=== PATIENT | male | born 1985 | race Caucasian/White ===

== ENCOUNTER → 2017-05-28 20:38 | Emergency (ER) | payer OTHER ==
[2017-05-28 21:08] VITALS: BP 159/95
--- NOTE | 2017-05-29 12:56 | ED ---
Substance Abuse/Use - HPI Summary HPI Summary: Patient presents by police after being found jumping up and down in front of the [employer] parking lot. They believe he may be on drugs. He admits to heroin use daily and last use this morning. He denies any pain, WD symptoms, LUCAS , N/V/C/D. Denies LUCAS. He states he would like to go home and denies fevers, sweats or chills. He denies any SI/HI. ETOH use weekly. Lives in a tent. Discussed case with security services manager. Will DC back to home since the individual is not a threat to himself or others at this time. - History Of Current Complaint Chief Complaint: EDAltMentalStatus Stated Complaint: AMS Time Seen by Provider: 05/28/17 20:50 Hx Obtained From: Patient Ingestion History: Type/Name Of Drug - heroin Overdose Characteristics: IV Timing Of Abuse: Daily Severity Initially: Mild Severity Currently: Mild Aggravating Factor(s): Nothing Alleviating Factor(s): Nothing Associated Signs And Symptoms: Negative - Risk Factor(s) Completed Suicide Risk Factors: Negative - Allergies/Home Medications Allergies/Adverse Reactions: Allergies Allergy/AdvReac Type Severity Reaction Status Date / Time Lidocaine [From Lidoderm] Allergy Rash Verified 05/24/16 13:37 PMH/Surg Hx/FS Hx/Imm Hx Previously Healthy: Yes Cardiovascular History: Reports: Hx Hypertension Respiratory History: Reports: Hx Asthma Infectious Disease History: No Infectious Disease History: Denies: Traveled Outside the US in Last 30 Days - Family History Known Family History: Positive: Hypertension - Social History Occupation: Unemployed Lives: Alone Alcohol Use: Rare Hx Substance Use: Yes Substance Use Type: Reports: Heroin Substance Use Comment - Amount & Last Used: earlier today Hx Tobacco Use: Yes Smoking Status (MU): Heavy Every Day Tobacco Smoker Review of Systems Constitutional: Negative Eyes: Negative Cardiovascular: Negative Respiratory: Negative Genitourinary: Negative Positive: no symptoms reported, see HPI Musculoskeletal: Negative Positive: Other - track mo on bilateral arms Neurological: Negative All Other Systems Reviewed And Are Negative: Yes Physical Exam Triage Information Reviewed: Yes Vital Signs On Initial Exam: Initial Vitals BP 159/95 05/28/17 20:47 Vital Signs Reviewed: Yes Appearance: Positive: Well-Appearing, Well-Nourished Skin: Positive: Warm, Skin Color Reflects Adequate Perfusion Head/Face: Positive: Normal Head/Face Inspection Eyes: Positive: EOMI, SIMI Neck: Positive: Supple, No Lymphadenopathy Respiratory/Lung Sounds: Positive: Clear to Auscultation, Breath Sounds Present Cardiovascular: Positive: Normal, RRR, Pulses are Symmetrical in both Upper and Lower Extremities Musculoskeletal: Positive: Normal, Strength/ROM Intact Neurological: Positive: Normal, Sensory/Motor Intact, Alert, Oriented to Person Place, Time Psychiatric: Positive: Anxious - patient is anxious about hospitals and wants to be DC'd home - [place] Coma Scale Coma Scale Total: 15 Diagnostics - Vital Signs Vital Signs Temp Pulse Resp BP Pulse Ox 05/28/17 21:20 98.7 F 05/28/17 21:06 98.6 F 104 18 159/95 99 05/28/17 21:00 98 135/119 99 05/28/17 20:49 105 99 05/28/17 20:47 159/95 - Laboratory Lab Statement: Any lab studies that have been ordered have been reviewed, and results considered in the medical decision making process. Course/Dx - Course Course Of Treatment: Discussed case with security services manager. Will DC back to home since the individual is not a threat to himself or others at this time. No labs were obtained. Patient is stable and at his baseline. - Diagnoses Differential Diagnosis/HQI/PQRI: Positive: Other - heroin use, other drug use Provider Diagnoses: Heroin use Discharge - Discharge Plan Condition: Stable Disposition: HOME Referrals: Lamonte Mancini MD [Primary Care Provider] - Additional Instructions: Do not do drugs. If you develop any worsening symptoms, return to the ED
== END | disposition home or self-care (01) ==
LOC: ED 20:38
DX: F11.90 Opioid use, unspecified, uncomplicated (principal)
CPT/HCPCS: 99282

== ENCOUNTER 2017-05-29 00:40 | Emergency (ER) | payer OTHER ==
[2017-05-29 05:48] LABS: Hematocrit 33 % (42-52); Hemoglobin 11.4 g/dl (14.0-18.0); Mean Corpuscular HGB Conc 35 g/dl (31-36); Mean Corpuscular Hemoglobin 33 pg (27-31); Mean Corpuscular Volume 95 fL (80-94); Mean Platelet Volume 7 um3 (7.4-10.4); Red Blood Count 3.48 10^6/ul (4.0-5.4); Red Cell Distribution Width 13 % (10.5-15); White Blood Count 6.9 10^3/ul (3.5-10.8)
[2017-05-29 06:03] LABS: Urine Bacteria Absent (Absent); Urine Bilirubin Negative (Negative); Urine Glucose Negative (Negative); Urine Nitrite Negative (Negative)
[2017-05-29 06:10] LABS: ALT 28 U/L (7-52); AST 35 U/L (13-39); Albumin 3.6 g/dL (3.2-5.2); Alkaline Phosphatase 42 U/L (34-104); Anion Gap 5 mmol/L (2-11); BUN/Creatinine Ratio 16.3 (8-20); Blood Urea Nitrogen 14 mg/dL (6-24); CO2 Carbon Dioxide 27 mmol/L (22-32); Calcium 8.5 mg/dL (8.6-10.3); Chloride 106 mmol/L (101-111); EGFR African American 132.5 (>60); EGFR Non-African American 103.1 (>60); Globulin 2.6 g/dL (2-4); Glucose 93 mg/dL (70-100); Potassium 3.4 mmol/L (3.5-5.0); Sodium 138 mmol/L (133-145); Total Protein 6.2 g/dL (6.4-8.9)
[2017-05-29 06:13] LABS: Acetaminophen < 15 mcg/mL; Alcohol < 10 mg/dL (<10); Salicylate < 2.50 mg/dL (<30)
[2017-05-29 06:21] LABS: Benzodiazepine Urine Screen None Detected (None Detect)
[2017-05-29 06:34] LABS: TSH (Thyroid Stimulating Horm) 2.08 mcIU/mL (0.34-5.60)
--- NOTE | 2017-05-29 07:33 | ED ---
Reyna Esquivel Abhishek, scribed for Milo Giron MD on 05/29/17 at 0622 . Substance Abuse/Use - HPI Summary HPI Summary: Pt is a 32 y/o male BIBA who presents to ED with methamphetamine abuse. Can not obtain HPI because pt was unconscious and unable to respond secondary to methamphetamine abuse. LEVEL 5 CAVEAT - History Of Current Complaint Chief Complaint: EDMentalHealth Stated Complaint: 941 Time Seen by Provider: 05/29/17 01:03 Hx Obtained From: EMS, Medical Records Hx From Patient Unobtainable Due To: Altered Mental Status - methamphetamine abuse Aggravating Factor(s): Nothing Alleviating Factor(s): Nothing - Allergies/Home Medications Allergies/Adverse Reactions: Allergies Allergy/AdvReac Type Severity Reaction Status Date / Time Lidocaine [From Lidoderm] Allergy Rash Verified 05/24/16 13:37 PMH/Surg Hx/FS Hx/Imm Hx Cardiovascular History: Reports: Hx Hypertension Respiratory History: Reports: Hx Asthma Infectious Disease History: No Infectious Disease History: Denies: Traveled Outside the [place] in Last 30 Days - Family History Known Family History: Positive: Hypertension - Social History Alcohol Use: Rare Substance Use Type: Reports: Heroin Substance Use Comment - Amount & Last Used: earlier today Hx Tobacco Use: Yes Smoking Status (MU): Never Smoked Tobacco Review of Systems - ROS Summary Review of Systems Summary: LEVEL 5 CAVEAT secondary to methamphetamine Positive: Other - Methamphetamine abuse All Other Systems Reviewed And Are Negative: No Physical Exam - Summary Physical Exam Summary: General: well-appearing, no pain distress Skin: warm, color reflects adequate perfusion, dry Head: normal Eyes: EOMI, SIMI Neck: supple, nontender Respiratory: CTA, breath sounds present Cardiovascular: RRR Musculoskeletal: moves all extremities in a grossly normal manner Neurological: alert Psychological: alert Triage Information Reviewed: Yes Vital Signs On Initial Exam: Initial Vitals Temp Pulse Resp BP Pulse Ox 99.2 F 104 20 116/73 100 05/29/17 01:14 05/29/17 01:14 05/29/17 01:14 05/29/17 01:14 05/29/17 01:14 Vital Signs Reviewed: Yes Completion Of Physical Exam Limited Due To: Level 5 - LEVEL 5 CAVEAT due to methamphetamine abuse - [place] Coma Scale Coma Scale Total: 15 Diagnostics - Vital Signs Vital Signs Temp Pulse Resp BP Pulse Ox 05/29/17 05:30 86 127/81 90 05/29/17 05:00 90 90 05/29/17 04:30 94 122/84 92 05/29/17 04:00 92 125/86 92 05/29/17 03:48 85 92 05/29/17 03:46 131/79 05/29/17 01:14 99.2 F 104 20 116/73 100 - Laboratory Lab Results: Lab Results 05/29/17 05/29/17 05/29/17 Range/Units 00:51 05:25 05:25 WBC 6.9 (3.5-10.8) 10^3/ul RBC 3.48 L (4.0-5.4) 10^6/ul Hgb 11.4 L (14.0-18.0) g/dl Hct 33 L (42-52) % MCV 95 H (80-94) fL MCH 33 H (27-31) pg MCHC 35 (31-36) g/dl RDW 13 (10.5-15) % Plt Count 228 (150-450) 10^3/ul MPV 7 L (7.4-10.4) um3 Neut % (Auto) 57.0 (38-83) % Lymph % (Auto) 28.8 (25-47) % [place] % (Auto) 10.2 H (1-9) % Eos % (Auto) 3.5 (0-6) % Baso % (Auto) 0.5 (0-2) % Absolute Neuts (auto) 3.9 (1.5-7.7) 10^3/ul Absolute Lymphs (auto) 2.0 (1.0-4.8) 10^3/ul Absolute Monos (auto) 0.7 (0-0.8) 10^3/ul Absolute Eos (auto) 0.2 (0-0.6) 10^3/ul Absolute Basos (auto) 0 (0-0.2) 10^3/ul Absolute Nucleated RBC 0.01 10^3/ul Nucleated RBC % 0.1 Sodium 138 (133-145) mmol/L Potassium 3.4 L (3.5-5.0) mmol/L Chloride 106 (101-111) mmol/L Carbon Dioxide 27 (22-32) mmol/L Anion Gap 5 (2-11) mmol/L BUN 14 (6-24) mg/dL Creatinine 0.86 (0.67-1.17) mg/dL Est GFR ( Amer) 132.5 (>60) Est GFR (Non-Af Amer) 103.1 (>60) BUN/Creatinine Ratio 16.3 (8-20) Glucose 93 (70-100) mg/dL Calcium 8.5 L (8.6-10.3) mg/dL Total Bilirubin 0.30 (0.2-1.0) mg/dL AST 35 (13-39) U/L ALT 28 (7-52) U/L Alkaline Phosphatase 42 (34-104) U/L Total Protein 6.2 L (6.4-8.9) g/dL Albumin 3.6 (3.2-5.2) g/dL Globulin 2.6 (2-4) g/dL Albumin/Globulin Ratio 1.4 (1-3) TSH Pending Urine Color Yellow Urine Appearance Cloudy Urine pH 5.0 (5-9) Ur Specific [place] 1.025 (1.010-1.030) Urine Protein 1+(30 mg/dl) H (Negative) Urine Ketones Negative (Negative) Urine Blood Negative (Negative) Urine Nitrate Negative (Negative) Urine Bilirubin Negative (Negative) Urine Urobilinogen Negative (Negative) Ur Leukocyte Esterase Trace H (Negative) Urine WBC (Auto) 3+(>20/hpf) H (Absent) Urine RBC (Auto) 2+(6-10/hpf) H (Absent) Ur Squamous Epith Cells Present H (Absent) Calcium Oxalate Crystal Present H (Absent) Urine Bacteria Absent (Absent) Urine Glucose Negative (Negative) Salicylates < 2.50 (<30) mg/dL Acetaminophen < 15 mcg/mL Serum Alcohol < 10 (<10) mg/dL Result Diagrams: 05/29/17 05:25 05/29/17 05:25 Lab Statement: Any lab studies that have been ordered have been reviewed, and results considered in the medical decision making process. Course/Dx - Course Course Of Treatment: Allergy noted and medication reviewed. MHE PENDING AT SHIFT CHANGE. NO CRITICAL CARE TIME. - Diagnoses Provider Diagnoses: Mental health problem Discharge - Discharge Plan Condition: Stable Disposition: OTHER Discharge Disposition Comment: . Referrals: Lamonte Mancini MD [Primary Care Provider] - The documentation as recorded by the Reyna toth Abhishek accurately reflects the service I personally performed and the decisions made by me, Milo Giron MD.
[2017-05-29 08:04] VITALS: BP 107/78
== END 2017-05-29 11:30 ==
LOC: ED 00:40
DX: R41.82 Altered mental status, unspecified (principal); Z00.8 Encounter for other general examination
CPT/HCPCS: 36415; 80053; 80307; 80320; 80329; 81003; 81015; 84443; 85025; 87086; 99284; G0480

== ENCOUNTER 2017-06-07 18:15 | Inpatient (IN) | payer OTHER ==
[2017-06-07] MEDS ORDERED: NS 0.9% 1000 ML* 2,300 ML IV ONE (18:23)
[2017-06-07 18:48] LABS: Hematocrit 38 % (42-52); Hemoglobin 12.9 g/dl (14.0-18.0); Mean Corpuscular HGB Conc 34 g/dl (31-36); Mean Corpuscular Hemoglobin 32 pg (27-31); Mean Corpuscular Volume 94 fL (80-94); Mean Platelet Volume 7 um3 (7.4-10.4); Red Blood Count 4.07 10^6/ul (4.0-5.4); Red Cell Distribution Width 14 % (10.5-15); White Blood Count 27.5 10^3/ul (3.5-10.8)
[2017-06-07] MEDS ORDERED: Bupivacaine 0.25% MDV* 50 ML VIAL ONE (18:48)
[2017-06-07 18:49] LABS: Add Diff/Slide Review? Slide Review Added; Comments Flag Yes
[2017-06-07 19:03] LABS: Albumin 3.7 g/dL (3.2-5.2); BUN/Creatinine Ratio 17.6 (8-20); Calcium 8.5 mg/dL (8.6-10.3); EGFR Non-African American 23.3 (>60); Globulin 3.1 g/dL (2-4); Potassium 4.7 mmol/L (3.5-5.0); Total Bilirubin 2.5 mg/dL (0.2-1.0); Total Protein 6.8 g/dL (6.4-8.9)
[2017-06-07 19:05] LABS: Troponin I 0.03 ng/mL (<0.04)
[2017-06-07 19:08] LABS: Eosinophils % 3 % (0-6); Immature Granulocytes 21 % (0-9); Neutrophil % 70 % (38-83); Reactive Lymph % 3 % (0-6)
[2017-06-07 19:09] LABS: RBC Morphology Normal (Normal)
[2017-06-07] MEDS ORDERED: Norepinephrine 16MCG/ML IVPRE* 4,000 MCG/250 ML BAG IV ONE (19:29)
--- NOTE | 2017-06-07 19:31 | RAD ---
INDICATION: Fever and facial swelling COMPARISON: Similar radiograph July 30, 2012 TECHNIQUE: Single AP portable view of the chest was obtained. FINDINGS: Image quality is compromised due to the relative inferiority of a portable chest x-ray. The heart and mediastinum exhibit normal size and contour. The lungs are grossly clear. There is no evidence of a large pleural effusion. Visualized bones are normal for the patient's age. IMPRESSION: No radiographic evidence for acute cardiopulmonary abnormality on this portable chest x-ray.
--- NOTE | 2017-06-07 19:36 | ED ---
Tyler Esquivel Rebecca, scribed for Radha Davies MD on 06/07/17 at 1834 . Complex/Multi-Sys Presentation - HPI Summary HPI Summary: Pt is a 32 y/o M BIBA who presents to ED c/o area of swelling on the forehead, generalized weakness and SOB. Pt states that the swelling "started out as a zit " and has been increasing in size since onset. Pt reports generalized weakness and mild SOB began yesterday. Sx aggravated and alleviated by nothing. Additionally c/o numbness down the LUE through the L hand for the last few days. EMS report he was hypotensive en route to [facility] [place] ED, with his diastolic BP in the 80s. Denies CP. PMHx asthma. PMHx IVDA, stating that he uses "uppers" and confirms use of "shake and bake" with the last use a few days ago. Reports injecting only into the LUE. - History Of Current Complaint Chief Complaint: EDGeneral Time Seen by Provider: 06/07/17 18:21 Hx Obtained From: Patient, EMS Onset/Duration: Lasting Days - Yesterday, Still Present Severity Currently: Moderate - 5/10 Aggravating Factor(s): Nothing Alleviating Factor(s): Nothing Associated Signs And Symptoms: Positive: Weakness - Generalized, SOB, Other - Numbness down the LLE and into the L hand; hyptotensive - Allergies/Home Medications Allergies/Adverse Reactions: Allergies Allergy/AdvReac Type Severity Reaction Status Date / Time Lidocaine [From Lidoderm] Allergy Rash Verified 05/24/16 13:37 PMH/Surg Hx/FS Hx/Imm Hx Cardiovascular History: Reports: Hx Hypertension Respiratory History: Reports: Hx Asthma Musculoskeletal History: Reports: Hx Back Problems - Chronic back pain Psychiatric History: Denies: Hx Eating Disorder Infectious Disease History: No Infectious Disease History: Denies: Traveled Outside the [place] in Last 30 Days - Family History Known Family History: Positive: Hypertension - Social History Alcohol Use: Rare Substance Use Type: Reports: Heroin Substance Use Comment - Amount & Last Used: earlier today Hx Tobacco Use: Yes Smoking Status (MU): Never Smoked Tobacco Review of Systems Positive: Other - Generalized weakness, hypotensive Negative: Chest Pain Positive: Shortness Of Breath Positive: Other - Area of swelling on the forehead Positive: Numbness - LUE numbness into the L hand All Other Systems Reviewed And Are Negative: Yes Physical Exam - Summary Physical Exam Summary: General: Well appearing, no pain distress Skin: Warm, Skin Color Reflects Adequate Perfusion, Dry, About a 2 cm area of fluctuance and induration over his forehead Eyes: EOMI, SIMI ENT: Pharynx normal, TMs normal Neck: Supple, nontender Respiratory: CTA, breath sounds present, perfusing well, no rhonchi, no wheezes , no rales Cardiovascular: RRR, no murmur, no rub, no gallop, Abdomen: Soft, nontender, Non-distended, no guarding, no rebound Bowel: Present Musculoskeletal: LEYDI, No edema Neuro: Sensory/motor intact, A&Ox3, CN intact 2-12 Psych: Affect/mood appropriate Triage Information Reviewed: Yes Vital Signs On Initial Exam: Initial Vitals Temp Pulse Resp BP Pulse Ox 98.6 F 108 21 74/37 98 06/07/17 18:25 06/07/17 18:25 06/07/17 18:25 06/07/17 18:25 06/07/17 18:25 Vital Signs Reviewed: Yes Procedures - Central Line Central Line Lumen: triple Central Line Procedure: betadine prep, sterile drapes applied, sterile dressing applied Central Line Position: femoral (L) Anesthesia: Marcaine - 0.25% cc's of anesthesia: 4 Complications: none Central Line Post Position: sutured, good blood return Diagnostics - Vital Signs Vital Signs Temp Pulse Resp BP Pulse Ox 06/07/17 18:25 98.6 F 108 21 74/37 98 - Laboratory Lab Results: Lab Results 06/07/17 06/07/17 06/07/17 Range/Units 18:32 18:32 18:32 WBC 27.5 H (3.5-10.8) 10^3/ul RBC 4.07 (4.0-5.4) 10^6/ul Hgb 12.9 L (14.0-18.0) g/dl Hct 38 L (42-52) % MCV 94 (80-94) fL MCH 32 H (27-31) pg MCHC 34 (31-36) g/dl RDW 14 (10.5-15) % Plt Count 278 (150-450) 10^3/ul MPV 7 L (7.4-10.4) um3 Immature Gran % (Auto) 21 H (0-9) % Neut % (Auto) 95.4 H (38-83) % Lymph % (Auto) 1.4 L (25-47) % [place] % (Auto) 3.1 (1-9) % Eos % (Auto) 0 (0-6) % Baso % (Auto) 0.1 (0-2) % Absolute Neuts (auto) 26.3 H (1.5-7.7) 10^3/ul Absolute Lymphs (auto) 0.4 L (1.0-4.8) 10^3/ul Absolute Monos (auto) 0.8 (0-0.8) 10^3/ul Absolute Eos (auto) 0 (0-0.6) 10^3/ul Absolute Basos (auto) 0 (0-0.2) 10^3/ul Absolute Nucleated RBC 0 10^3/ul Neutrophils % 70 (38-83) % Band Neutrophils % 21 H (0-8) % Reactive Lymphs % 3 (0-6) % Monocytes % 3 (0-13) % Eosinophils % 3 (0-6) % Nucleated RBC % 0 Normal RBC Morphology Normal (Normal) INR (Anticoag Therapy) 1.17 H (0.89-1.11) APTT 29.1 (26.0-36.3) seconds Sodium 130 L (133-145) mmol/L Potassium 4.7 (3.5-5.0) mmol/L Chloride 95 L (101-111) mmol/L Carbon Dioxide 22 (22-32) mmol/L Anion Gap 13 H (2-11) mmol/L BUN 55 H (6-24) mg/dL Creatinine 3.12 H (0.67-1.17) mg/dL Est GFR ( Amer) 30.0 (>60) Est GFR (Non-Af Amer) 23.3 (>60) BUN/Creatinine Ratio 17.6 (8-20) Glucose 99 (70-100) mg/dL Lactic Acid (0.5-2.0) mmol/L Calcium 8.5 L (8.6-10.3) mg/dL Total Bilirubin 2.50 H (0.2-1.0) mg/dL AST 446 H (13-39) U/L ALT 352 H (7-52) U/L Alkaline Phosphatase 183 H (34-104) U/L Troponin I 0.03 (<0.04) ng/mL Total Protein 6.8 (6.4-8.9) g/dL Albumin 3.7 (3.2-5.2) g/dL Globulin 3.1 (2-4) g/dL Albumin/Globulin Ratio 1.2 (1-3) 10//17 Range/Units 18:32 WBC (3.5-10.8) 10^3/ul RBC (4.0-5.4) 10^6/ul Hgb (14.0-18.0) g/dl Hct (42-52) % MCV (80-94) fL MCH (27-31) pg MCHC (31-36) g/dl RDW (10.5-15) % Plt Count (150-450) 10^3/ul MPV (7.4-10.4) um3 Immature Gran % (Auto) (0-9) % Neut % (Auto) (38-83) % Lymph % (Auto) (25-47) % [place] % (Auto) (1-9) % Eos % (Auto) (0-6) % Baso % (Auto) (0-2) % Absolute Neuts (auto) (1.5-7.7) 10^3/ul Absolute Lymphs (auto) (1.0-4.8) 10^3/ul Absolute Monos (auto) (0-0.8) 10^3/ul Absolute Eos (auto) (0-0.6) 10^3/ul Absolute Basos (auto) (0-0.2) 10^3/ul Absolute Nucleated RBC 10^3/ul Neutrophils % (38-83) % Band Neutrophils % (0-8) % Reactive Lymphs % (0-6) % Monocytes % (0-13) % Eosinophils % (0-6) % Nucleated RBC % Normal RBC Morphology (Normal) INR (Anticoag Therapy) (0.89-1.11) APTT (26.0-36.3) seconds Sodium (133-145) mmol/L Potassium (3.5-5.0) mmol/L Chloride (101-111) mmol/L Carbon Dioxide (22-32) mmol/L Anion Gap (2-11) mmol/L BUN (6-24) mg/dL Creatinine (0.67-1.17) mg/dL Est GFR ( Amer) (>60) Est GFR (Non-Af Amer) (>60) BUN/Creatinine Ratio (8-20) Glucose (70-100) mg/dL Lactic Acid 2.2 H* (0.5-2.0) mmol/L Calcium (8.6-10.3) mg/dL Total Bilirubin (0.2-1.0) mg/dL AST (13-39) U/L ALT (7-52) U/L Alkaline Phosphatase (34-104) U/L Troponin I (<0.04) ng/mL Total Protein (6.4-8.9) g/dL Albumin (3.2-5.2) g/dL Globulin (2-4) g/dL Albumin/Globulin Ratio (1-3) Result Diagrams: 06/07/17 18:32 06/07/17 18:32 Lab Statement: Any lab studies that have been ordered have been reviewed, and results considered in the medical decision making process. - Radiology CXR Xray Interpretation: No Acute Changes - No radiographic evidence for acute cardiopulmonary abnormality on this portable chest x-ray. ED physician reviewed radiology report and agrees. Radiology Interpretation Completed By: Radiologist Complex Multi-Symp Course/Dx Course Of Treatment: 32 yo male with methamphetamine iv drug use who noted abscess on his forehead and several days of not feeling well. pressures in 70's on arrival. Pt immediately given 30 cc/kg of ivf with no rise in pressures ( although pt perfusing quite well) femoral line placed which pt tolerated well, levophed started. Pt also started on zosyn and vanco wbc above 30's lfts abnl. Case discussed with Dr. Chavez, who agreed with CT chest abd /pelvis and admission - Diagnoses Provider Diagnoses: Sepsis - Physician Notifications Discussed Care Of Patient With: Godwin Chavez Time Discussed With Above Provider: 19:20 Instructed by Provider To: Other - Accepts pt for admission - Critical Care Time Critical Care Time: 30-74 min - 30 minutes Discharge - Discharge Plan Condition: Critical Disposition: ADMITTED TO [facility] Referrals: Lamonte Mancini MD [Primary Care Provider] - The documentation as recorded by the Tyler toth Rebecca accurately reflects the service I personally performed and the decisions made by me, Radha Davies MD.
[2017-06-07] MEDS ORDERED: Ibuprofen TAB* 400 MG PO PRN (19:43)
[2017-06-07] MEDS ORDERED: Acetaminophen TAB* 325 MG PO PRN (19:46)
[2017-06-07] MEDS ORDERED: Vancomycin per Pharmacy* NOTE FOLLOW UP PRN (19:52)
[2017-06-07] MEDS ORDERED: Vancomycin(*) 1,000 MG VIAL IVPB SCH (20:00)
[2017-06-07] MEDS ORDERED: Norepinephrine 16MCG/ML IVPRE* 4,000 MCG/250 ML BAG IV SCH (20:00)
[2017-06-07] MEDS ORDERED: Vancomycin(*) 1,000 MG - ED ONCE IVPB ONE ×2 (20:00)
[2017-06-07] MEDS ORDERED: Vancomycin(*) 0 MG in NS 0.9% 250 ML* 250 ML IVPB SCH (20:00)
[2017-06-07] MEDS ORDERED: Ondansetron INJ* 2 MG/ML VIAL ONE (20:10)
[2017-06-07] MEDS: Ondansetron INJ* 2 MG/ML VIAL IV PRN (20:11)
[2017-06-07] MEDS ORDERED: Vancomycin(*) 1,250 MG in NS 0.9% 250 ML* 250 ML IVPB ONE (20:30)
[2017-06-07 20:55] LABS: Erythrocyte Sed Rate 33 mm/Hr (0-14)
[2017-06-07] MEDS: NS 0.9% 1000 ML* 1,000 ML IV SCH (21:00)
--- NOTE | 2017-06-07 21:33 | RAD ---
INDICATION: "General sepsis". Abnormal liver enzyme. COMPARISON: None. TECHNIQUE: Multidetector CT images of the chest, abdomen and pelvis were obtained from the lung apices to the ischial tuberosities without intravenous contrast or oral contrast. CHEST: The lungs are clear. There are no large pleural effusions. There is no mediastinal or hilar lymphadenopathy. The heart and major vascular structures are grossly normal in appearance. ABDOMEN \\T\\ PELVIS: The liver, spleen, pancreas and adrenal glands are grossly normal in appearance. The gallbladder is normal. The kidneys are normal in appearance without focal mass, calcification or signs of hydronephrosis. The small and large bowel are not distended. The appendix is not discretely visualized. There is no gross retroperitoneal or mesenteric lymphadenopathy. The pelvic viscera is normal in appearance. 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 There is calcified atherosclerosis of the bilateral common iliac arteries. A central venous catheter in the left common femoral vein is noted. There are no sinister bone lesions. IMPRESSION: No acute abnormalities on this highly limited noncontrast CT examination.
[2017-06-07 21:54] LABS: Urine Bacteria Absent (Absent); Urine Bilirubin Negative (Negative); Urine Glucose Negative (Negative); Urine Nitrite Negative (Negative); Urine Sperm Present (Absent)
[2017-06-07 22:23] LABS: Benzodiazepine Urine Screen None Detected (None Detect)
[2017-06-07] MEDS: oxyCODONE/Acetamin 5/325 MG* TAB PO PRN (22:46)
--- NOTE | 2017-06-08 01:09 | HP ---
CC: Dr. Mancini ADMISSION HISTORY AND PHYSICAL: DATE OF ADMISSION: 06/07/17 CHIEF COMPLAINT: Weakness. HISTORY OF PRESENT ILLNESS: Mr. Barreto is a 32-year-old man with history of IV drug abuse, who noted a lump on his upper forehead midline over the last 2 days. It seems to be causing mild pain and enlarging slowly. He denies any fever, but he has had chills. He came to the emergency department today because he was increasingly weak and lethargic. He has had some abdominal pain for the past few days which he cannot quantify or localize. The patient denies any cough or sore throat. He has been tolerating liquids today, but he is becoming nauseous with his liquids. He denies any vomiting, but he has had decreased appetite. The patient has a long history of intravenous drug use mainly with crystal meth. He uses this daily, but reports he uses clean needles. PAST MEDICAL HISTORY: Denies any medical history other than above. PAST SURGICAL HISTORY: None. MEDICATIONS: None. ALLERGIES: LIDOCAINE. FAMILY HISTORY: Notable for mother and father alive and well. His brother and sister both of polyglandular failure and [place]'s disease and he believes he does not have this gene. SOCIAL HISTORY: He is homeless and collects bottles and cans for money[place] He is single. He has no children. Not sexually active. Social history includes quarter pack a day of smoking. No alcohol use and IV drug abuse as above. Denies any opiate use. REVIEW OF SYSTEMS: The patient denies any fevers, but he has anorexia. The patient denies any chest pain or palpitations. The patient denies any diarrhea or constipation, but does report some abdominal pain and some nausea as above. The patient denies any hematuria, but does have some dysuria. The patient consents to HIV testing when offered in the emergency department. Remainder of 14-point review of systems is negative other than mentioned in the HPI. PHYSICAL EXAMINATION GENERAL: He appears ill, but he is alert and conversant. VITAL SIGNS: Temperature is 37.0, pulse 103 to 108, respirations 28 to 34, blood pressure is 74/37 up to 81/64 after 2 L of fluids intravenously, O2 sat is 100% on room air. HEENT: His head is normocephalic, atraumatic. The skin on his forehead is notable for a 3 cm raised erythematous dome-like lesion with a central 1 cm eschar, no purulent drainage. No stranding erythema. The extraocular muscles are intact. Pupils are equal, round, and reactive to light and accommodation. Oropharynx is with poor dentition. He has dry mouth, dry lips. NECK: No adenopathy. No JVD. No carotid bruits. LUNGS: Clear to auscultation bilaterally. HEART: Tachycardic, regular, no murmurs. ABDOMEN: Soft, nontender, positive bowel sounds. No hepatosplenomegaly. There is a catheter in the left groin femoral vein, which was clean, dry and intact. NEUROLOGIC: Cranial nerves II through XII are intact. Motor strength is 5/5 throughout. Deep tendon reflexes are symmetric. He is alert and oriented x3. LABORATORY DATA: Sodium 130, potassium 4.7, chloride 95, bicarb 22, BUN 55, creatinine 3.12, glucose 99, calcium 8.5, albumin 3.7, AST 446, ALT 352, bilirubin 2.5. White count 27.5, hemoglobin 12.9, hematocrit 38%, platelets 278 ,000. INR 1.17. PTT 29.1. Lactic acid 2.2. EKG shows sinus tachycardia with J-point elevation. No ischemic changes. Chest x-ray is negative for infiltrates or effusion. CT chest, abdomen and pelvis is pending. Urinalysis is pending. ASSESSMENT AND PLAN: A 32-year-old man with sepsis, source is unclear, but he does have an infection on the skin on the forehead which may be MRSA with subsequent bacteremia and/or endocarditis. Other possibilities would include urinary tract infection or liver abscess. The patient will be admitted to the intensive care unit. He has completed his 30 mL/per kg of fluid resuscitation and is continued at a high rate of infusion. Because he is still hypotensive, he is to be started on Levophed for pressor support. The case was discussed with Dr. Hines, at the ICU. The patient has acute kidney injury which is likely due to hypovolemia. The patient will have a ultrasound to rule out postrenal obstruction. We will treat him aggressively as above and recheck creatinine in the morning. The patient has acute hepatitis compared to previous tests and no previous serologies. He will be tested for hepatitis A, B and C and CMV. The liver abscess was also in the differential. Because of IV drug use, we are also checking HIV test. Code status was full. DVT prophylaxis will be with early ambulation once his pressure is better and he can have mechanical DVT prophylaxis until then. [id number]/CPS #: [id number] MTDD
[2017-06-08] MEDS: NS 0.9% 1000 ML* 1,000 ML IV SCH ×2 (02:53→05:47)
[2017-06-08] MEDS ORDERED: NS 0.9% 500 ML* 500 ML IV ONE (03:06)
[2017-06-08 04:50] LABS: Hematocrit 30 % (42-52); Hemoglobin 9.9 g/dl (14.0-18.0); Mean Corpuscular HGB Conc 34 g/dl (31-36); Mean Corpuscular Hemoglobin 32 pg (27-31); Mean Corpuscular Volume 94 fL (80-94); Mean Platelet Volume 7 um3 (7.4-10.4); Red Blood Count 3.14 10^6/ul (4.0-5.4); Red Cell Distribution Width 13 % (10.5-15); White Blood Count 25.2 10^3/ul (3.5-10.8)
[2017-06-08 04:53] LABS: Comments Flag Yes
[2017-06-08 05:05] LABS: Albumin 2.8 g/dL (3.2-5.2); BUN/Creatinine Ratio 22.4 (8-20); Calcium 7.1 mg/dL (8.6-10.3); EGFR African American 45.1 (>60); Globulin 2.5 g/dL (2-4); Potassium 3.9 mmol/L (3.5-5.0); Total Bilirubin 1.4 mg/dL (0.2-1.0); Total Protein 5.3 g/dL (6.4-8.9); Vancomycin Random 14.6 mcg/mL
[2017-06-08] MEDS: oxyCODONE/Acetamin 5/325 MG* TAB PO PRN ×3 (05:53→20:52)
[2017-06-08] MEDS ORDERED: Vancomycin Random Level* NOTE FOLLOW UP SCH (06:00)
[2017-06-08] MEDS: Vancomycin(*) 1,000 MG in NS 0.9% 250 ML* 250 ML IVPB SCH ×2 (08:40→20:34)
[2017-06-08] MEDS ORDERED: NS 0.9% 1000 ML* 2,000 ML IV ONE (10:31)
[2017-06-08] MEDS ORDERED: Norepinephrine 16MCG/ML IVPRE* 4,000 MCG/250 ML BAG IV SCH (10:32)
--- NOTE | 2017-06-08 11:01 | RAD ---
Indication: Acute renal insufficiency. Comparison: Noncontrast CT of one day prior. Technique: Renal ultrasound. Report: 11.7 x 6.6 x 6.2 cm RIGHT kidney. 14.4 x 5.7 x 8.2 cm LEFT kidney. Borderline echogenic bilateral renal cortex. No focal renal lesions, conspicuous stones, or hydronephrosis. Trace RIGHT perinephric fluid noted. IMPRESSION: Borderline echogenic bilateral renal cortex which may be seen with medical renal disease. Negative for obstructive uropathy.
--- NOTE | 2017-06-08 11:18 | PN ---
Progress Note - Progress Note Date of Service: 06/08/17 Note: CRITICAL CARE MEDICINE Date: 06/08/17 Time: 1000 SUBJECTIVE: Patient seen and examined. PHYSICAL EXAM: Vital Signs: Reviewed. afeb, Hr 80s SBP just above 80 and diastolics low. RR teens Neurologic: intact, nonfocal, other then chronic parasthesias of left arm; equal strength HEENT: small abcess with mild redness and bogginess with center eschar on mid forehead; no jaw nor temporal pain. pupils equal. Sclera anicteric. Trachea midline. neck supple Cardiovascular: S1 S2 no m Respiratory: clear Abdomen: Soft, nt. No r/g/r. Extremities: Warm. disheveled, grungy hands Access: left femoral cvc LABS: Reviewed. IMAGING: Reviewed. MEDICATIONS: Reviewed. ASSESSMENT: 32 M Septic shock on admission Source is still questionable, forehead abscess like a red banks, but follow up evolution - not requiring i&d at this juncture CT was poor qulaity, but benign. Acute renal failure - no obstructive uropathy; certainly pre-renal, and possible atn component as well. Acute ischemic vs infectious hepatitis Drug abuse PLAN: Neurologic: stable. prns Cardiovascular: perfusing. could likely still utilize vol as he may have been considerably behind over last few days. keep ivf today. no m appreciated but given bp dnamics and risk factors with sepsis, at least tte warranted. weaned off levo and perfusing well with sbp >80 and maintain off pressors as able. Respiratory: tolerating well on low dose nc. no resp distress. Gastrointestinal: lfts better; question low flow ischemic hepatitis (would fit association with atn); no answers from ct. hep panel pending. f/u improvement. Renal/Metabolic: lactic acid cleared. improved bun/cr. continued ivf. adjust to lr Infectious Disease: mrsa screen neg, but still with risk factors. again, facial abscess may be less likely the complete culprit but may be sign of the bacteremic events. f/u cultures and see if further directions warranted. stay on broad spectrum abx today. if clinically decline, could consider I&D but can hold for now. Hematology: hemoconc on admission, diluted now. Endocrine: check cortisol and tsh. may have been depleted and needing stress hormonal replacement. Musculoskeletal: oob. Psych/Social: pt expressed understanding; social work f/u. Supportive and preventative care as ordered. Vaccine: f/u needs SUP: po VTE prophylaxis: heparin Disposition: ICU today and potential floor tomorrow Code Status: Full Critical Care Time: 35min FVinicio Hines DO
--- NOTE | 2017-06-08 13:11 | PN ---
Progress Note - Progress Note Date of Service: 06/08/17 Note: CRITICAL CARE MEDICINE Date: 06/08/17 Time: 1300 Random cortisol from this am <10. Given his condition, will treate with stress dose steroids to avoid further vasopressors. Fluid as ordered. Utilizes femoral line until tomorrow and then consider dc in favor of peripheral IVs and clinical f/u. Code Status: Full Critical Care Time: 5min F. Spike Hines, DO
[2017-06-08] MEDS: Heparin VIAL(*) 5000 UNITS/ML VIAL (FIVE THOUSAND) SUBCUT SCH ×2 (13:39→22:04)
[2017-06-08] MEDS: Hydrocortisone INJ* 100 MG VIAL IV SCH ×2 (13:39→20:44)
[2017-06-08 14:36] LABS: TSH (Thyroid Stimulating Horm) 0.3 mcIU/mL (0.34-5.60)
[2017-06-08] MEDS ORDERED: Famotidine TAB* 20 MG ONE (16:41)
[2017-06-08] MEDS ORDERED: Famotidine TAB* 20 MG PO PRN (16:42)
[2017-06-09] MEDS: Hydrocortisone INJ* 100 MG VIAL IV SCH ×4 (02:09→20:10)
[2017-06-09 05:31] LABS: Hematocrit 29 % (42-52); Mean Corpuscular HGB Conc 34 g/dl (31-36); Mean Corpuscular Hemoglobin 32 pg (27-31); Mean Corpuscular Volume 95 fL (80-94); Mean Platelet Volume 7 um3 (7.4-10.4); Red Blood Count 3.09 10^6/ul (4.0-5.4); Red Cell Distribution Width 14 % (10.5-15)
[2017-06-09 05:35] LABS: Comments Flag Yes
[2017-06-09] MEDS: Heparin VIAL(*) 5000 UNITS/ML VIAL (FIVE THOUSAND) SUBCUT SCH ×3 (05:47→22:06)
[2017-06-09 05:55] LABS: Albumin 2.8 g/dL (3.2-5.2); BUN/Creatinine Ratio 27.8 (8-20); Calcium 7.9 mg/dL (8.6-10.3); Direct Bilirubin 0.2 mg/dL (0.03-0.18); EGFR African American 115.4 (>60); EGFR Non-African American 89.7 (>60); Globulin 2.6 g/dL (2-4); Indirect Bilirubin 0.3 mg/dL (0.3-1.0); Potassium 4.7 mmol/L (3.5-5.0); Total Bilirubin 0.5 mg/dL (0.2-1.0); Total Protein 5.4 g/dL (6.4-8.9)
[2017-06-09] MEDS: oxyCODONE/Acetamin 5/325 MG* TAB PO PRN ×3 (07:41→20:10)
[2017-06-09] MEDS ORDERED: Vancomycin Trough Check NOTE FOLLOW UP ONE (08:30)
[2017-06-09] MEDS: Vancomycin(*) 1,000 MG in NS 0.9% 250 ML* 250 ML IVPB SCH (10:07)
--- NOTE | 2017-06-09 10:54 | PN ---
Progress Note - Progress Note Date of Service: 06/09/17 Note: Patient had an uneventful evening, and is now hemodynamically stable off vasopressor Rx. Is receiving hydrocortisone for possible adrenal insufficiency ( random cortisol < 10 mcg/dL in a stressful setting). . PE: GEN: Alert, oriented, and appears comfortable. VS: T=98.7, UE=676/80, P=94, R=16, SpO2=99% (NC at 2L/min) Lungs: Clear LABS: Notable for decrease in creatinine to 0.97 mg/dL, and persistent leukocytosis ( WBC = 24k) Cultures: Blood and urine cultures negative to date. IMP: 1. No evidence for a treatable infection. 2. Adrenal insufficiency is a real possibility, and would explain hypotension on admission. PLAN: 1/ D/C antibiotics 2. Workup for adrenal insufficiency (can start with rapid ACTH stimulaton test, off hydrocortisone).
[2017-06-09 13:09] LABS: Call Hep C TO BE CALLED
[2017-06-09] MEDS: Ondansetron INJ* 2 MG/ML VIAL IV PRN (17:59)
[2017-06-10] MEDS: Hydrocortisone INJ* 100 MG VIAL IV SCH ×4 (01:45→19:47)
[2017-06-10] MEDS: Heparin VIAL(*) 5000 UNITS/ML VIAL (FIVE THOUSAND) SUBCUT SCH ×3 (05:49→20:49)
[2017-06-10] MEDS: oxyCODONE/Acetamin 5/325 MG* TAB PO PRN ×3 (07:51→20:48)
[2017-06-10 11:46] LABS: Hematocrit 33 % (42-52); Mean Corpuscular HGB Conc 33 g/dl (31-36); Mean Corpuscular Hemoglobin 31 pg (27-31); Mean Corpuscular Volume 95 fL (80-94); Mean Platelet Volume 8 um3 (7.4-10.4); Red Blood Count 3.52 10^6/ul (4.0-5.4); Red Cell Distribution Width 13 % (10.5-15); White Blood Count 25.2 10^3/ul (3.5-10.8)
[2017-06-10 11:50] LABS: Add Diff/Slide Review? Slide Review Added; Comments Flag Yes
--- NOTE | 2017-06-10 22:02 | PN ---
Subjective Date of Service: 06/10/17 Interval History: Patient says his mouth hurts and he has blisters on his lips. Objective Active Medications: Acetaminophen (Tylenol Tab*) 650 mg PO Q4H PRN PRN Reason: FEVER/HEADACHE Last Admin: 06/08/17 08:19 Dose: 650 mg Famotidine (Pepcid Tab*) 20 mg PO DAILY PRN PRN Reason: HEARTBURN Last Admin: 06/08/17 16:46 Dose: 20 mg Heparin Sodium (Porcine) (Heparin Vial(*)) 5,000 units SUBCUT Q8HR [facility] Last Admin: 06/10/17 20:49 Dose: Not Given Hydrocortisone Sodium Succinate (Solu-Cortef*) 50 mg IV Q6H [facility] Last Admin: 06/10/17 19:47 Dose: Not Given Potassium Chloride 20 meq/ (Lactated Ringer's) 1,010 mls @ 151.5 mls/hr IVPB Q6H [facility] Last Admin: 06/10/17 17:46 Dose: Not Given Ondansetron HCl (Zofran Inj*) 4 mg IV Q6H PRN PRN Reason: NAUSEA Last Admin: 06/09/17 17:59 Dose: 4 mg Oxycodone/Acetaminophen (Percocet 5/325 Tab*) 1 tab PO Q4H PRN PRN Reason: PAIN Last Admin: 06/10/17 20:48 Dose: 1 tab Vital Signs 06/09/17 06/09/17 06/10/17 22:10 23:36 03:45 Temperature 98.4 F 98.2 F Pulse Rate 87 71 Respiratory 17 16 16 Rate Blood Pressure 146/85 145/95 (mmHg) O2 Sat by Pulse 97 96 Oximetry 06/10/17 06/10/17 06/10/17 06:44 07:51 08:00 Temperature 97.7 F Pulse Rate 57 Respiratory 16 14 14 Rate Blood Pressure 142/89 (mmHg) O2 Sat by Pulse 100 Oximetry 06/10/17 06/10/17 06/10/17 09:51 12:46 14:47 Temperature 98.3 F Pulse Rate 71 Respiratory 14 20 16 Rate Blood Pressure 135/85 (mmHg) O2 Sat by Pulse 97 Oximetry 06/10/17 06/10/17 06/10/17 15:51 16:47 19:02 Temperature 98.3 F 98.3 F Pulse Rate 62 65 Respiratory 20 16 18 Rate Blood Pressure 149/88 133/76 (mmHg) O2 Sat by Pulse 98 96 Oximetry 06/10/17 20:48 Temperature Pulse Rate Respiratory 18 Rate Blood Pressure (mmHg) O2 Sat by Pulse Oximetry Oxygen Devices in Use Now: None Appearance: Thin gentleman lyin in bed in NAD Eyes: No Scleral Icterus Ears/Nose/Mouth/Throat: - - blisters on upper and lower lips Neck: No Thyroid Enlargement, Masses Respiratory: Clear to Auscultation Cardiovascular: - - S1S2 kody Abdominal: NL Sounds; No Tenderness; No Distention, No Hepatosplenomegaly Lymphatic: No Cervical Adenopathy Extremities: No Edema Skin: No Rash or Ulcers Neurological: Alert and Oriented x 3 Result Diagrams: 06/10/17 11:06 06/09/17 05:20 Additional Lab and Data: Lab Results 06/07/17 06/07/17 06/07/17 Range/Units 18:32 18:32 18:32 WBC 27.5 H (3.5-10.8) 10^3/ul RBC 4.07 (4.0-5.4) 10^6/ul Hgb 12.9 L (14.0-18.0) g/dl Hct 38 L (42-52) % MCV 94 (80-94) fL MCH 32 H (27-31) pg MCHC 34 (31-36) g/dl RDW 14 (10.5-15) % Plt Count 278 (150-450) 10^3/ul MPV 7 L (7.4-10.4) um3 Immature Gran % (Auto) 21 H (0-9) % Neut % (Auto) 95.4 H (38-83) % Lymph % (Auto) 1.4 L (25-47) % Kaufman % (Auto) 3.1 (1-9) % Eos % (Auto) 0 (0-6) % Baso % (Auto) 0.1 (0-2) % Absolute Neuts (auto) 26.3 H (1.5-7.7) 10^3/ul Absolute Lymphs (auto) 0.4 L (1.0-4.8) 10^3/ul Absolute Monos (auto) 0.8 (0-0.8) 10^3/ul Absolute Eos (auto) 0 (0-0.6) 10^3/ul Absolute Basos (auto) 0 (0-0.2) 10^3/ul Absolute Nucleated RBC 0 10^3/ul Neutrophils % 70 (38-83) % Band Neutrophils % 21 H (0-8) % Reactive Lymphs % 3 (0-6) % Monocytes % 3 (0-13) % Eosinophils % 3 (0-6) % Nucleated RBC % 0 Normal RBC Morphology Normal (Normal) INR (Anticoag Therapy) 1.17 H (0.89-1.11) APTT 29.1 (26.0-36.3) seconds Sodium 130 L (133-145) mmol/L Potassium 4.7 (3.5-5.0) mmol/L Chloride 95 L (101-111) mmol/L Carbon Dioxide 22 (22-32) mmol/L Anion Gap 13 H (2-11) mmol/L BUN 55 H (6-24) mg/dL Creatinine 3.12 H (0.67-1.17) mg/dL Est GFR ( Amer) 30.0 (>60) Est GFR (Non-Af Amer) 23.3 (>60) BUN/Creatinine Ratio 17.6 (8-20) Glucose 99 (70-100) mg/dL Lactic Acid (0.5-2.0) mmol/L Calcium 8.5 L (8.6-10.3) mg/dL Total Bilirubin 2.50 H (0.2-1.0) mg/dL AST 446 H (13-39) U/L ALT 352 H (7-52) U/L Alkaline Phosphatase 183 H (34-104) U/L Troponin I 0.03 (<0.04) ng/mL Total Protein 6.8 (6.4-8.9) g/dL Albumin 3.7 (3.2-5.2) g/dL Globulin 3.1 (2-4) g/dL Albumin/Globulin Ratio 1.2 (1-3) 06/07/17 Range/Units 18:32 WBC (3.5-10.8) 10^3/ul RBC (4.0-5.4) 10^6/ul Hgb (14.0-18.0) g/dl Hct (42-52) % MCV (80-94) fL MCH (27-31) pg MCHC (31-36) g/dl RDW (10.5-15) % Plt Count (150-450) 10^3/ul MPV (7.4-10.4) um3 Immature Gran % (Auto) (0-9) % Neut % (Auto) (38-83) % Lymph % (Auto) (25-47) % Kaufman % (Auto) (1-9) % Eos % (Auto) (0-6) % Baso % (Auto) (0-2) % Absolute Neuts (auto) (1.5-7.7) 10^3/ul Absolute Lymphs (auto) (1.0-4.8) 10^3/ul Absolute Monos (auto) (0-0.8) 10^3/ul Absolute Eos (auto) (0-0.6) 10^3/ul Absolute Basos (auto) (0-0.2) 10^3/ul Absolute Nucleated RBC 10^3/ul Neutrophils % (38-83) % Band Neutrophils % (0-8) % Reactive Lymphs % (0-6) % Monocytes % (0-13) % Eosinophils % (0-6) % Nucleated RBC % Normal RBC Morphology (Normal) INR (Anticoag Therapy) (0.89-1.11) APTT (26.0-36.3) seconds Sodium (133-145) mmol/L Potassium (3.5-5.0) mmol/L Chloride (101-111) mmol/L Carbon Dioxide (22-32) mmol/L Anion Gap (2-11) mmol/L BUN (6-24) mg/dL Creatinine (0.67-1.17) mg/dL Est GFR ( Amer) (>60) Est GFR (Non-Af Amer) (>60) BUN/Creatinine Ratio (8-20) Glucose (70-100) mg/dL Lactic Acid 2.2 H* (0.5-2.0) mmol/L Calcium (8.6-10.3) mg/dL Total Bilirubin (0.2-1.0) mg/dL AST (13-39) U/L ALT (7-52) U/L Alkaline Phosphatase (34-104) U/L Troponin I (<0.04) ng/mL Total Protein (6.4-8.9) g/dL Albumin (3.2-5.2) g/dL Globulin (2-4) g/dL Albumin/Globulin Ratio (1-3) Microbiology and Other Data: Microbiology 06/07/17 20:30 Aerobic Blood Culture - Preliminary Blood Venous No Growth Day 3 Anaerobic Blood Culture - Preliminary No Growth Day 3 Blood Culture - Final 06/07/17 21:17 Urine Culture - Final Urine No Growth (<1,000 CFU/mL) 06/07/17 20:30 Nasal Screen MRSA (PCR)(CATHLEEN) - Final Nasal Mrsa Negative Assess/Plan/Problems-Billing Assessment: 32 year old who presented to [facility] with a chief complaint of weakness and with history of IVDA and leukocytosis there was concern for endocarditis, - Patient Problems (1) Adrenal insufficiency ([place]'s disease) Current Visit: Yes Status: Acute Code(s): E27.1 - PRIMARY ADRENOCORTICAL INSUFFICIENCY SNOMED Code(s): 666610619 Comment: responded to hydrocortisone. Transition to po decadron. needs endocrin follow up. He will be referred on discharge. (2) Blister (nonthermal) of oral cavity, initial encounter Current Visit: Yes Status: Acute Code(s): S00.522A - BLISTER (NONTHERMAL) OF ORAL CAVITY, INITIAL ENCOUNTER SNOMED Code(s): 348838834 Comment: Vaseline, Magic mouthwash (3) IV drug abuse Current Visit: Yes Status: Acute Code(s): F19.10 - OTHER PSYCHOACTIVE SUBSTANCE ABUSE, UNCOMPLICATED SNOMED Code(s): 076781621 Comment: Encouraged cessation. Still was using with crystal meth
--- NOTE | 2017-06-10 22:07 | CONS ---
CONSULTATION REPORT: DATE OF CONSULTATION: 06/10/17 REQUESTING PHYSICIAN: Dr. Kingsley. CONSULTING SERVICE: Infectious Disease. REASON FOR CONSULTATION: Leukocytosis, hypotension, forehead lesion. IMPRESSION: 1. Leukocytosis, improving, did have a few hours of broad-spectrum antibiotics , but otherwise had not any other, white blood cell count continues to improve and the initial shock as a result as well. He is having a workup for adrenal insufficiency. Blood cultures are negative. Urine cultures are negative. CT chest, abdomen, and pelvis negative. Only other remarkable abnormalities are his forehead lesion, which could be a cutaneous infection, not fluctuant. I do not think there is anything to drain. He is anemic and has transaminitis and acute kidney injury. Renal function, ALT all improving. Both could have been due to hypoperfusion with a BUN to creatinine ratio over 20 and the AST greater than ALT. He did have elevated bilirubin at the same time, but that is also back to normal and the anemia persists with a hemoglobin of 10. 2. Injection drug use, in brief remission. 3. Normocytic anemia and add LDH and haptoglobin. 4. Did have CMV testing, EB virus testing, which are pending as to the causes of his transaminitis, though improving rapidly so I think it is less likely to be an infectious etiology. He does have a positive hepatitis C antibody, which I do not think is the cause of his change in liver function test. RECOMMENDATIONS: 1. Agree with continue to observe off of antibiotics. We will add mupirocin for his forehead. Check LDH and haptoglobin. Follow his white blood cell count and the results of his adrenal insufficiency testing. His HIV antibody was negative. 2. For hepatitis C antibody positive as an outpatient, we can follow viral load. He is not in a stable environment to initiate therapy, however, at this point. HISTORY OF PRESENT ILLNESS: This is a 32-year-old man with injection drug use admitted with malaise, low blood pressure, forehead lesion. [place] He had weakness, some chills without fever and he had noticed that the right side of his forehead lesion growing 2 to 3 days before he came to the hospital, was painful and red. He had not had much of skin infections in the past. [place] [id number] and shock that was present on admission, he was admitted to the hospital, IV fluid resuscitation and Levophed, started on Zosyn that was stopped the next day and he has been fine since. The lesion on his forehead has got a scab on it. Nothing is drained that he knows off. It is getting smaller. It is less painful. On admission, his ALT was 352, AST 446, down to 91 and 154 today. His bilirubin was 2.5, down to 0.5. TSH was 0.3, cortisol 9.7. He is having a cosyntropin stim test as we speak. The only thing that does not feel right to him now is couple of ulcerations developed on his lips in the last day or so. He has had those from time to time at the time of other illnesses. He has no genital lesions. PAST MEDICAL HISTORY: None. PAST SURGICAL HISTORY: No surgeries. ALLERGIES: LIDOCAINE. MEDICATIONS: 1. Tylenol. 2. Famotidine. 3. Heparin subcutaneous injection. 4. Hydrocortisone 50 mg every 6 hours. 5. Potassium and lactated Ringer's. 6. Oxycodone. SOCIAL HISTORY: [place] stimulants every day. HIV testing was negative. REVIEW OF SYSTEMS: A 14-point review of systems was negative except as noted above. PHYSICAL EXAMINATION: Vital Signs: Temperature 36.5, heart rate 50, respiratory rate 16, blood pressure 140/90, O2 sat 100% on room air. In general , he is awake, not in distress. Neurologic: He is oriented x3. Follows all commands. HEENT: There is no conjunctival hemorrhage. He has multiple submillimeter sores on his lip, which were not ulceration, but superficial desquamation. There are no crepitus, fluctuance, or erythema around them. There are not on the vermilion border. He is edentulous. Neck: Supple without nuchal rigidity. Lungs: There is no cervical, supraclavicular, inguinal, axillary or epitrochlear adenopathy. Heart is regular rate and rhythm without murmurs, rubs, or gallops. Lungs are clear to auscultation bilaterally. Abdomen is soft, nontender, nondistended. There are bowel sounds present. Skin: There is no rash or splinter hemorrhages. Musculoskeletal: There is no spine tenderness to palpation or joint synovitis. LABORATORY DATA: White blood cell count 24, hemoglobin 10, platelets 166, creatinine is 0.9, bilirubin is 0.5, ALT 162. Please see impressions and recommendations as outlined above, which was discussed with Dr. Kingsley. Thank you for asking me to see Mr. Estesran in consultation. [id number]/[facility] #: [id number] MTDD
[2017-06-11] MEDS: Hydrocortisone INJ* 100 MG VIAL IV SCH ×2 (01:25→08:09)
[2017-06-11] MEDS: Heparin VIAL(*) 5000 UNITS/ML VIAL (FIVE THOUSAND) SUBCUT SCH ×3 (04:59→20:00)
[2017-06-11] MEDS: oxyCODONE/Acetamin 5/325 MG* TAB PO PRN ×3 (07:51→23:42)
--- NOTE | 2017-06-11 09:14 | PN ---
Progress Note - Progress Note Date of Service: 06/11/17 SOAP: Subjective: CC: forehead lesion HPI: 32 yo homeless man with forehead scab and bump, recent shock which is resolved. Adrenal workup pending. Forehead spot less red and swelling decreased. Lip and mouth sores hurt , worse with eating. No rash or new lesions. No fever or diarrhea. Objective: [] Vital Signs Temp 36.8 C 06/11/17 08:23 Pulse 64 06/11/17 08:23 Resp 16 06/11/17 08:23 BP 150/99 06/11/17 08:23 Pulse Ox 97 06/11/17 04:02 Intake & Output 06/10/17 06/11/17 06/11/17 18:59 06:59 18:59 Intake Total 780 Output Total 1525 1600 Balance -745 -1600 Intake: Oral 780 Output: Urine 1525 1600 Other: Estimated Void Medium # Bowel Movements 0 1 Estimated Stool Amount Medium # Voids 1 Gen:awake, no distress HEENT:superficial lip coalescing desquamation Heart:RRR no murmur Lungs:CTA BL Abd:+BS NTND soft Skin: no rash MSK: no spine tenderness Laboratory Results - last 24 hr 06/07/17 06/09/17 06/10/17 18:32 08:35 11:06 WBC 25.2 H RBC 3.52 L Hgb 11.0 L Hct 33 L MCV 95 H MCH 31 MCHC 33 RDW 13 Plt Count 237 MPV 8 Neut % (Auto) 90.5 H Lymph % (Auto) 7.0 L [place] % (Auto) 2.3 Eos % (Auto) 0 Baso % (Auto) 0.2 Absolute Neuts (auto) 22.8 H Absolute Lymphs (auto) 1.8 Absolute Monos (auto) 0.6 Absolute Eos (auto) 0 Absolute Basos (auto) 0 Absolute Nucleated RBC 0.02 Nucleated RBC % 0.1 CMV IgG Ab Negative CMV IgM Ab Negative Hepatitis A IgM Ab Nonreactive Hep Bs Antigen Nonreactive Hep B Core IgM Ab Nonreactive Hepatitis C Antibody High reactive H Microbiology 06/07/17 20:30 Aerobic Blood Culture - Preliminary Blood Venous No Growth Day 3 Anaerobic Blood Culture - Preliminary No Growth Day 3 Blood Culture - Final 06/07/17 18:32 Aerobic Blood Culture - Preliminary Blood Venous No Growth Day 3 Anaerobic Blood Culture - Preliminary No Growth Day 3 Blood Culture - Final Assessment: 1. septic shock resolved, r/o adrenal insufficiency 2. lip lesion reaction to drug or virus 3. forehead lesion, resolving 4. IVD in brief remission Plan: 1. corticosteroid taper per primary service 2. mupirocin to forehead lesion. Magic mouthwash. Discussed with Dr Kingsley
[2017-06-11] MEDS ORDERED: Petrolatum 5 GM* 5 GM PACKET TOPICAL PRN (11:57)
[2017-06-11] MEDS: Magic M W2 Ben/Maal/Nyst/Lido* 240 ML MOUTHWASH (alt formulation) SWISH SPIT SCH ×3 (13:28→19:58)
--- NOTE | 2017-06-11 15:13 | PN ---
Subjective Date of Service: 06/11/17 Interval History: Patient feels better. he thinks he will be ready to go home tomorrow. Objective Active Medications: Acetaminophen (Tylenol Tab*) 650 mg PO Q4H PRN PRN Reason: FEVER/HEADACHE Last Admin: 06/08/17 08:19 Dose: 650 mg Dexamethasone (Decadron Tab*) 0.75 mg PO DAILY [facility] Famotidine (Pepcid Tab*) 20 mg PO DAILY PRN PRN Reason: HEARTBURN Last Admin: 06/08/17 16:46 Dose: 20 mg Heparin Sodium (Porcine) (Heparin Vial(*)) 5,000 units SUBCUT Q8HR [facility] Last Admin: 06/11/17 13:28 Dose: Not Given Potassium Chloride 20 meq/ (Lactated Ringer's) 1,010 mls @ 151.5 mls/hr IVPB Q6H [facility] Last Admin: 06/11/17 13:28 Dose: Not Given Multi-Ingredient Mouthwash/Gargle (Magic M W2 Bennett/Maal/Nyst/Lido*) 5 ml SWISH SPIT QID [facility] Last Admin: 06/11/17 13:28 Dose: 5 ml Ondansetron HCl (Zofran Inj*) 4 mg IV Q6H PRN PRN Reason: NAUSEA Last Admin: 06/09/17 17:59 Dose: 4 mg Oxycodone/Acetaminophen (Percocet 5/325 Tab*) 1 tab PO Q4H PRN PRN Reason: PAIN Last Admin: 06/11/17 07:51 Dose: 1 tab Petrolatum (Vaseline*) 5 gm TOPICAL QID PRN PRN Reason: dry lips Vital Signs 06/10/17 06/10/17 06/10/17 15:51 16:47 19:02 Temperature 98.3 F 98.3 F Pulse Rate 62 65 Respiratory 20 16 18 Rate Blood Pressure 149/88 133/76 (mmHg) O2 Sat by Pulse 98 96 Oximetry 06/10/17 06/10/17 06/10/17 20:00 20:48 22:48 Temperature Pulse Rate Respiratory 18 18 18 Rate Blood Pressure (mmHg) O2 Sat by Pulse Oximetry 06/10/17 06/11/17 06/11/17 23:33 04:02 07:51 Temperature 98.4 F 98.6 F Pulse Rate 66 62 Respiratory 16 16 18 Rate Blood Pressure 138/92 148/86 (mmHg) O2 Sat by Pulse 95 97 Oximetry 06/11/17 06/11/17 06/11/17 08:03 08:23 09:50 Temperature 98.3 F Pulse Rate 64 Respiratory 18 16 18 Rate Blood Pressure 150/99 (mmHg) O2 Sat by Pulse Oximetry 06/11/17 11:34 Temperature 98.9 F Pulse Rate 74 Respiratory 16 Rate Blood Pressure 148/97 (mmHg) O2 Sat by Pulse 94 Oximetry Oxygen Devices in Use Now: None Appearance: Thin gentleman lying in bed in NAD Eyes: No Scleral Icterus, - - large lesion in middle of forehead, blisters on lips Ears/Nose/Mouth/Throat: Mucous Membranes Moist Neck: No Thyroid Enlargement, Masses Respiratory: Clear to Auscultation Cardiovascular: - - S1S2 kody Abdominal: NL Sounds; No Tenderness; No Distention, No Hepatosplenomegaly Lymphatic: No Cervical Adenopathy Extremities: No Edema Skin: - - Lesion in middle of forehead. Blisters on lips Neurological: Alert and Oriented x 3 Result Diagrams: 06/10/17 11:06 06/09/17 05:20 Additional Lab and Data: Lab Results 06/07/17 06/07/17 06/07/17 Range/Units 18:32 18:32 18:32 WBC 27.5 H (3.5-10.8) 10^3/ul RBC 4.07 (4.0-5.4) 10^6/ul Hgb 12.9 L (14.0-18.0) g/dl Hct 38 L (42-52) % MCV 94 (80-94) fL MCH 32 H (27-31) pg MCHC 34 (31-36) g/dl RDW 14 (10.5-15) % Plt Count 278 (150-450) 10^3/ul MPV 7 L (7.4-10.4) um3 Immature Gran % (Auto) 21 H (0-9) % Neut % (Auto) 95.4 H (38-83) % Lymph % (Auto) 1.4 L (25-47) % Banner % (Auto) 3.1 (1-9) % Eos % (Auto) 0 (0-6) % Baso % (Auto) 0.1 (0-2) % Absolute Neuts (auto) 26.3 H (1.5-7.7) 10^3/ul Absolute Lymphs (auto) 0.4 L (1.0-4.8) 10^3/ul Absolute Monos (auto) 0.8 (0-0.8) 10^3/ul Absolute Eos (auto) 0 (0-0.6) 10^3/ul Absolute Basos (auto) 0 (0-0.2) 10^3/ul Absolute Nucleated RBC 0 10^3/ul Neutrophils % 70 (38-83) % Band Neutrophils % 21 H (0-8) % Reactive Lymphs % 3 (0-6) % Monocytes % 3 (0-13) % Eosinophils % 3 (0-6) % Nucleated RBC % 0 Normal RBC Morphology Normal (Normal) INR (Anticoag Therapy) 1.17 H (0.89-1.11) APTT 29.1 (26.0-36.3) seconds Sodium 130 L (133-145) mmol/L Potassium 4.7 (3.5-5.0) mmol/L Chloride 95 L (101-111) mmol/L Carbon Dioxide 22 (22-32) mmol/L Anion Gap 13 H (2-11) mmol/L BUN 55 H (6-24) mg/dL Creatinine 3.12 H (0.67-1.17) mg/dL Est GFR ( Amer) 30.0 (>60) Est GFR (Non-Af Amer) 23.3 (>60) BUN/Creatinine Ratio 17.6 (8-20) Glucose 99 (70-100) mg/dL Lactic Acid (0.5-2.0) mmol/L Calcium 8.5 L (8.6-10.3) mg/dL Total Bilirubin 2.50 H (0.2-1.0) mg/dL AST 446 H (13-39) U/L ALT 352 H (7-52) U/L Alkaline Phosphatase 183 H (34-104) U/L Troponin I 0.03 (<0.04) ng/mL Total Protein 6.8 (6.4-8.9) g/dL Albumin 3.7 (3.2-5.2) g/dL Globulin 3.1 (2-4) g/dL Albumin/Globulin Ratio 1.2 (1-3) 06/07/17 Range/Units 18:32 WBC (3.5-10.8) 10^3/ul RBC (4.0-5.4) 10^6/ul Hgb (14.0-18.0) g/dl Hct (42-52) % MCV (80-94) fL MCH (27-31) pg MCHC (31-36) g/dl RDW (10.5-15) % Plt Count (150-450) 10^3/ul MPV (7.4-10.4) um3 Immature Gran % (Auto) (0-9) % Neut % (Auto) (38-83) % Lymph % (Auto) (25-47) % Banner % (Auto) (1-9) % Eos % (Auto) (0-6) % Baso % (Auto) (0-2) % Absolute Neuts (auto) (1.5-7.7) 10^3/ul Absolute Lymphs (auto) (1.0-4.8) 10^3/ul Absolute Monos (auto) (0-0.8) 10^3/ul Absolute Eos (auto) (0-0.6) 10^3/ul Absolute Basos (auto) (0-0.2) 10^3/ul Absolute Nucleated RBC 10^3/ul Neutrophils % (38-83) % Band Neutrophils % (0-8) % Reactive Lymphs % (0-6) % Monocytes % (0-13) % Eosinophils % (0-6) % Nucleated RBC % Normal RBC Morphology (Normal) INR (Anticoag Therapy) (0.89-1.11) APTT (26.0-36.3) seconds Sodium (133-145) mmol/L Potassium (3.5-5.0) mmol/L Chloride (101-111) mmol/L Carbon Dioxide (22-32) mmol/L Anion Gap (2-11) mmol/L BUN (6-24) mg/dL Creatinine (0.67-1.17) mg/dL Est GFR ( Amer) (>60) Est GFR (Non-Af Amer) (>60) BUN/Creatinine Ratio (8-20) Glucose (70-100) mg/dL Lactic Acid 2.2 H* (0.5-2.0) mmol/L Calcium (8.6-10.3) mg/dL Total Bilirubin (0.2-1.0) mg/dL AST (13-39) U/L ALT (7-52) U/L Alkaline Phosphatase (34-104) U/L Troponin I (<0.04) ng/mL Total Protein (6.4-8.9) g/dL Albumin (3.2-5.2) g/dL Globulin (2-4) g/dL Albumin/Globulin Ratio (1-3) Microbiology and Other Data: Microbiology 06/07/17 20:30 Aerobic Blood Culture - Preliminary Blood Venous No Growth Day 3 Anaerobic Blood Culture - Preliminary No Growth Day 3 Blood Culture - Final 06/07/17 21:17 Urine Culture - Final Urine No Growth (<1,000 CFU/mL) 06/07/17 20:30 Nasal Screen MRSA (PCR)(CATHLEEN) - Final Nasal Mrsa Negative Assess/Plan/Problems-Billing Assessment: 32 year old who presented to [facility] [place] with a chief complaint of weakness and with history of IVDA and leukocytosis there was concern for endocarditis, - Patient Problems (1) Adrenal insufficiency (Blanco's disease) Current Visit: Yes Status: Acute Code(s): E27.1 - PRIMARY ADRENOCORTICAL INSUFFICIENCY SNOMED Code(s): 988553129 Comment: Continue po decadron. Needs endocrinology follow up. He will be referred on discharge. (2) Blister (nonthermal) of oral cavity, initial encounter Current Visit: Yes Status: Acute Code(s): S00.522A - BLISTER (NONTHERMAL) OF ORAL CAVITY, INITIAL ENCOUNTER SNOMED Code(s): 889995197 Comment: Vaseline, Magic mouthwash (3) IV drug abuse Current Visit: Yes Status: Acute Code(s): F19.10 - OTHER PSYCHOACTIVE SUBSTANCE ABUSE, UNCOMPLICATED SNOMED Code(s): 866852470 Comment: Encouraged cessation. Still was using with crystal meth
[2017-06-12] MEDS: Heparin VIAL(*) 5000 UNITS/ML VIAL (FIVE THOUSAND) SUBCUT SCH ×3 (05:11→20:16)
[2017-06-12] MEDS: Magic M W2 Ben/Maal/Nyst/Lido* 240 ML MOUTHWASH (alt formulation) SWISH SPIT SCH ×4 (09:05→21:51)
[2017-06-12] MEDS: Dexamethasone TAB* 0.75 MG PO SCH (09:05)
[2017-06-12] MEDS: oxyCODONE/Acetamin 5/325 MG* TAB PO PRN ×2 (12:52→19:25)
--- NOTE | 2017-06-13 03:09 | DS ---
CC: Dr. Mancini* DISCHARGE SUMMARY: DATE OF ADMISSION: 06/07/17 DATE OF DISCHARGE: 06/12/17 ADMISSION DIAGNOSIS: Sepsis of unclear etiology. DISCHARGE DIAGNOSES: 1. Adrenal insufficiency. 2. Drug abuse. 3. Tobacco abuse disorder. HOSPITAL COURSE: The patient is a 32-year-old gentleman who presented to [facility] with a chief complaint of weakness. The patient was found to have an elevated white count of 27, 500. He was also found to have a blood pressure of about 74/37. He was felt to possibly be septic. He was initially admitted to the ICU. Upon further evaluation and based on the family history, a cortisol level was drawn. The cortisol level was in low normal and he was thought to have possibly adrenal insufficiency. The patient was placed on hydrocortisone and his symptoms improved dramatically. His blood pressure improved dramatically as well. Due to his leukocytosis, I wanted to confirm that it was unlikely that he had an infection causing this elevated white count and Infectious Disease was consulted and agreed it was likely adrenal insufficiency. The patient did develop lip lesions on his mouth. Again, this was felt to be viral. He did end up having a hepatitic C antibody done that showed he was highly reactive to this as well. This will obviously have to be evaluated and it could be related to his underlying issues as well. Certainly, he has elevated LFTs, it could be related to this as well. It is recommended he does follow up with Endocrinology, Gastroenterology, and Infectious Disease as an outpatient. The patient was anxious to go home. On the date of discharge, his pressure was much better, he is feeling improved. It should be noted he still had elevated white count, but this should be followed up as an outpatient. PHYSICAL EXAMINATION: On the date of discharge, thin gentleman lying in bed, in no acute distress. Vital Signs: Temperature 98.4 degrees, heart rate 83 beats per minute, respiratory rate 18 breaths per minute, pulse ox 98%, and blood pressure 134/91. HEENT: Normocephalic, atraumatic. Pupils are equal, round, and reactive to light. He has got dry mucous membranes. He has got blisters in his oral cavity. Neck is supple. No JVD, bruits, palpable thyroid , or lymphadenopathy. Chest is clear to auscultation and percussion bilaterally. Cardiovascular Exam: S1 and S2 appreciated. Abdominal Exam: Positive bowel sounds in all 4 quadrants. Soft, nontender, and nondistended. Extremities: No cyanosis, clubbing, or edema. +2 peripheral pulses bilaterally. Neuro: Alert and oriented x3, moves all extremities. Skin: He does have a large lesion on his forehead consistent with a furuncle. STUDIES DONE WHILE IN THE HOSPITAL: CT of the chest, abdomen, and pelvis. No acute abnormalities and a highly-limited noncontrast CT examination. Chest x- ray was interpreted as no radiographic evidence for acute cardiopulmonary abnormality on this portable chest x-ray. DISCHARGE MEDICATIONS: 1. Clindamycin 300 mg every 6 hours. 2. Econazole cream 1 application topical to the affected areas twice daily. 3. Omeprazole 20 mg daily. 4. Percocet 5/325 every 4 hours as needed. 5. Vaseline 5 g topically 4 times a day as needed. 6. Bactroban apply twice a day to the affected area, which is the furuncle. 7. Magic Mouthwash 5 cc 4 times a day as needed. 8. Ibuprofen 600 mg every 6 hours as needed. 9. Famotidine 20 mg daily. 10. Decadron 0.75 mg daily. DISCHARGE PLAN: The patient will be discharged home. He has a follow up appointment with his primary care physician, Dr. Mancini on July 09 at 2 :20 p.m. The patient should ensure that he goes to his followup appointment as he will need to follow up not only with him, but Gastroenterology, Endocrinology , and possibly Infectious Disease as well. It was emphasized to the patient how important it is for him to stop smoking and to maintain follow ups with his significant morbidities at this time. TIME SPENT: Over 40 minutes was spent on this discharge, more than 25 minutes of which was spent in direct [id number] contact with the patient evaluation, physical exam, counselling, and coordination of care. [id number]/[facility] #: [id number] [facility]CH HOSPITALJacob
[2017-06-13] MEDS: Heparin VIAL(*) 5000 UNITS/ML VIAL (FIVE THOUSAND) SUBCUT SCH (04:15)
[2017-06-13] MEDS: Dexamethasone TAB* 0.75 MG PO SCH (08:06)
[2017-06-13] MEDS: Magic M W2 Ben/Maal/Nyst/Lido* 240 ML MOUTHWASH (alt formulation) SWISH SPIT SCH (08:06)
[2017-06-13] MEDS: oxyCODONE/Acetamin 5/325 MG* TAB PO PRN (08:06)
[2017-06-13 10:46] VITALS: BP 115/77
== END 2017-06-13 10:45 | disposition home or self-care (01) | DRG 424 ==
LOC: ED 18:15 → ICU 19:39 → MED 06-09 13:05
PROVIDERS: ADMIT Internal Medicine; ATTEND Hospitalist
DX: E27.40 Unspecified adrenocortical insufficiency (principal); R57.9 Shock, unspecified; N17.9 Acute kidney failure, unspecified; F19.10 Other psychoactive substance abuse, uncomplicated; F17.210 Nicotine dependence, cigarettes, uncomplicated; E86.1 Hypovolemia; S00.522A Blister (nonthermal) of oral cavity, initial encounter; X58.XXXA Exposure to other specified factors, initial encounter; D64.9 Anemia, unspecified; R74.0 Nonspecific elevation of levels of transaminase and lactic acid dehydrogenase [LDH]; Y92.9 Unspecified place or not applicable; Z88.8 Allergy status to other drugs, medicaments and biological substances; Z83.49 Family history of other endocrine, nutritional and metabolic diseases
CPT/HCPCS: 36415; 71010; 71250; 74176; 76775; 80048; 80053; 80074; 80076; 80202; 80307; 81003; 81015; 82533; 83605; 83735; 84100; 84443; 84484; 85025; 85610; 85652; 85730; 86644; 86645; 86703; 87040; 87086; 87641; 93005; A9270-GY; J1644; J1720; J2405; J2543; J3370; J3480

== ENCOUNTER 2018-07-21 12:34 | Emergency (ER) | payer OTHER ==
--- NOTE | 2018-07-21 12:41 | UC ---
Lower Extremity/Ankle HPI - HPI Summary HPI Summary: 33 yo male who resides at the correctional facility as an inmate presents with right foot pain and left AC pain. He tells me that about 1 week ago he thinks he hit his right foot against a wooden step. Thought he might have sprained it as it has been painful since that time. Over the last 2-3 days has gotten very red, painful, and swollen. He cannot walk due to pain. He also tells me that he has an abscess on his left arm for 2 days due to "shooting up". Says that he has NOT "shot up" in his right foot. He has felt warm, but has not taken his temperature. He tells me that last year he was admitted for a week due to sepsis and IV drug use. No hx of MRSA that he knows of. - History of Current Complaint Stated Complaint: FOOT INJURY Time Seen by Provider: 07/21/18 12:41 Hx Obtained From: Patient Onset/Duration: Gradual Onset Severity Initially: Moderate Severity Currently: Severe Pain Intensity: 12 Pain Scale Used: 0-10 Numeric Able to Bear Weight: No - Allergies/Home Medications Allergies/Adverse Reactions: Allergies Allergy/AdvReac Type Severity Reaction Status Date / Time lidocaine Allergy Rash Verified 07/21/18 12:51 Home Medications: Home Medications NK [No Home Medications Reported] 07/21/18 [History Confirmed 07/21/18] PMH/Surg Hx/FS Hx/Imm Hx - Additional Past Medical History Additional PMH: IV drug use - Surgical History Surgical History: None - Family History Known Family History: Positive: Hypertension - Social History Occupation: Unemployed Lives: Dormitory/Roommates Alcohol Use: Rare Substance Use Type: Heroin, Marijuana, Other Substance Use Comment - Amount & Last Used: IV METHAMPHETAMINE. LAST USED 06/07 Smoking Status (MU): Never Smoked Tobacco - Immunization History Most Recent Influenza Vaccination: NONE Most Recent Pneumonia Vaccination: NONE Review of Systems All Other Systems Reviewed And Are Negative: Yes Constitutional: Positive: Fever Skin: Positive: Other - Abscess left arm. Right foot cellulitis Respiratory: Positive: Negative Cardiovascular: Positive: Negative Neurovascular: Positive: Negative Neurological: Positive: Negative Psychological: Positive: Negative Physical Exam - Summary Physical Exam Summary: GENERAL: NAD. WDWN. SKIN: RIGHT FOOT: Moderate erythema and severe edema are right foot. Moderate warmth. Streaking up to mid calf and anterior lower leg. Severe TTP. No open wound appreciated. LEFT AC: Mild erythema, warmth, and tenderness and distal upper arm and proximal forearm. ~1.0cm abscess/induration appreciated at proximal forearm. NECK: Supple. Nontender. No lymphadenopathy. CHEST: No accessory muscle use. Breathing comfortably and in no distress. CV: Tachycardic. Cap refill <2seconds right toes. Unable to appreciate right DP pulse due to swelling and degree of pain. NEURO: Alert. PSYCH: Age appropriate behavior. Triage Information Reviewed: Yes Vital Signs: Vital Signs: Temp Pulse Resp BP Pulse Ox 100.6 F 120 20 119/74 98 07/21/18 12:43 07/21/18 12:43 07/21/18 12:43 07/21/18 12:43 07/21/18 12:43 Vital Signs Reviewed: Yes Lower Extremity Course/Dx - Course Course Of Treatment: Pt is febrile, tachycardic, and has a hx of IV drug use and sepsis. He has an abscess to his left AC and what appears to be moderate to severe cellulitis of his right foot with streaking. There is a high suspicion for sepsis at this time, therefore I have recommened the pt be further evaluated in the ED. Pt was agreeable to this and the officer with him today will drive him there. - Differential Dx/Diagnosis Provider Diagnosis: SIRS (systemic inflammatory response syndrome), Cellulitis of right foot, Abscess of left arm, IV drug user Discharge - Sign-Out/Discharge Documenting (check all that apply): Patient Departure All imaging exams completed and their final reports reviewed: No Studies - Discharge Plan Condition: Stable Disposition: HOME-RECOMMEND TO ED Referrals: Lamonte Mancini MD [Primary Care Provider] - Additional Instructions: Please go directly to the ER for further evaluation of your fever, high heart rate, and cellulitis. - Billing Disposition and Condition Condition: STABLE Disposition: Home-Recommend to ED
[2018-07-21 12:50] VITALS: BP 119/74
== END 2018-07-21 12:59 | disposition home health service (06) ==
LOC: UCEAST 12:34
DX: L03.115 Cellulitis of right lower limb (principal); L02.414 Cutaneous abscess of left upper limb; R65.10 Systemic inflammatory response syndrome (SIRS) of non-infectious origin without acute organ dysfunction; F19.90 Other psychoactive substance use, unspecified, uncomplicated
CPT/HCPCS: 99212; G0463

== ENCOUNTER 2018-07-21 13:37 | Inpatient (IN) | payer OTHER ==
[2018-07-21] MEDS ORDERED: NS 0.9% 1000 ML*IV.FLUID IV ONE (13:57)
--- NOTE | 2018-07-21 13:57 | ED ---
Skin Complaint - HPI Summary HPI Summary: Patient is a 33 y/o M presenting to ED with fever, swelling and erythema with blisters at right foot as well as similar Sx at left arm. Sx onset six days ago. Patient states he injected heroin and meth in left arm today. He is present in ED with correctional officers. He also reports dizziness, light- headedness, and abdominal pain. He denies any other medical problems, no home medications reported. On triage, pain is rated 10/10, nothing is noted to aggravate/alleviate Sx. Home medications and allergies are reviewed. - History of Current Complaint Chief Complaint: EDGeneral Time Seen by Provider: 07/21/18 13:53 Stated Complaint: LEFT FOOT SWELLING Hx Obtained From: Patient Onset/Duration: Started Days Ago - six days ago, Still Present Skin Exposure Onset/Duration: Days Ago - six days ago Timing: Constant, Lasting Days - six days Current Severity: Severe - 10/10 Pain Intensity: 10 Pain Scale Used: 0-10 Numeric - 10/10 Skin Location: Arm - left, Foot - right Character: Swelling, Redness Aggravating Symptom(s): Nothing Alleviating Symptom(s): Nothing Associated Signs & Symptoms: Fever, Abdominal Pain, Lightheadedness - Additional Pertinent History Primary Care Physician: [id number] - Allergy/Home Medications Allergies/Adverse Reactions: Allergies Allergy/AdvReac Type Severity Reaction Status Date / Time lidocaine Allergy Rash Verified 07/21/18 13:51 PMH/Surg Hx/FS Hx/Imm Hx Cardiovascular History: Reports: Hx Hypertension Respiratory History: Reports: Hx Asthma Musculoskeletal History: Reports: Hx Back Problems - Chronic back pain since 2008 fall from truck Sensory History: Denies: Hx Contacts or Glasses, Hx Hearing Aid Opthamlomology History: Denies: Hx Contacts or Glasses Psychiatric History: Reports: Hx Anxiety, Hx Depression Denies: Hx Eating Disorder Infectious Disease History: No Infectious Disease History: Denies: Traveled Outside the [place] in Last 30 Days - Family History Known Family History: Positive: Hypertension - Social History Alcohol Use: Rare Substance Use Type: Reports: Heroin, Marijuana, Other Substance Use Comment - Amount & Last Used: IV METHAMPHETAMINE. LAST USED 06/07 Hx Tobacco Use: Yes Smoking Status (MU): Never Smoked Tobacco Review of Systems Positive: Fever Positive: Abdominal Pain Positive: Other - swelling and erythema with blisters at right foot as well as similar Sx at left arm. Neurological: Other - POSITIVE - DIZZINESS, LIGHT-HEADEDENSS All Other Systems Reviewed And Are Negative: Yes Physical Exam - Summary Physical Exam Summary: Appearance: Ill-appearing, Well-nourished, febrile Skin: Warm, dry; area of cellulitis on left cubital fossa, marked swelling with induration but no obvious induration, drainage or fluctuance; same observations for right foot. Eyes: sclera anicteric, no conjunctival pallor ENT: mucous membranes moist, pharynx appears normal Neck: Supple, nontender Respiratory: Clear to auscultation, no signs of respiratory distress Cardiovascular: Tachycardia; Normal S1, S2. No murmurs. Normal distal pulses in tibial and radial bilaterally. Abdomen: Soft, nontender, normal active bowel sounds present Musculoskeletal: Normal, Strength/ROM Intact Neurological: A&Ox3, awake and alert, mentation is normal, speech is fluent and appropriate Psychiatric: affect is normal, does not appear anxious or depressed Triage Information Reviewed: Yes Vital Signs On Initial Exam: Initial Vitals Temp Pulse Resp BP Pulse Ox 100.9 F 124 18 138/87 98 07/21/18 13:44 07/21/18 13:44 07/21/18 13:44 07/21/18 13:44 07/21/18 13:44 Vital Signs Reviewed: Yes Diagnostics - Vital Signs Vital Signs Temp Pulse Resp BP Pulse Ox 07/21/18 13:44 100.9 F 124 18 138/87 98 - Laboratory Result Diagrams: 07/22/18 05:44 07/22/18 05:44 Lab Statement: Any lab studies that have been ordered have been reviewed, and results considered in the medical decision making process. - Ultrasound No standard instances Ultrasound Interpretation Completed By: Radiologist Summary of Ultrasound Findings: SOFT TISSUE US IMPRESSION: #. LEFT upper extremity cellulitis and small segment superficial thrombophlebitis. involving the LEFT cephalic vein. No loculated LEFT upper extremity abscess collection. evident. #. Cellulitis over the medial dorsum of the RIGHT foot with associated 7.4 x 1.5 x 2.5 cm. loculated abscess collection surrounding the extensor hallucis longus tendon and also. likely the tibialis anterior tendon. This report was reviewed by ED physician Course/Dx - Course Course Of Treatment: Patient is a 33 y/o M presenting to ED with fever, swelling and erythema with blisters at right foot as well as similar Sx at left arm. Sx onset six days ago. Patient states he injected heroin and meth in left arm today. He is present in ED with correctional officers. He also reports dizziness, light-headedness, and abdominal pain. He denies any other medical problems, no home medications reported. On physical exam, patient is febrile, tachycardic, and ill-appearing. There is an area of cellulitis on left cubital fossa, marked swelling with induration but no obvious induration, drainage or fluctuance; same observations for right foot. Labs showed WBC 22.5, Hct 41, MCV 96, MCH 33, MPV 6.9, absolute neuts 19.5, absolute monos 1.8, INR 1.4, sodium 132, chloride 97, glucose 119, trop 0.03. SOFT TISSUE US IMPRESSION: # . LEFT upper extremity cellulitis and small segment superficial thrombophlebitis. involving the LEFT cephalic vein. No loculated LEFT upper extremity abscess collection. evident. #. Cellulitis over the medial dorsum of the RIGHT foot with associated 7.4 x 1.5 x 2.5 cm. loculated abscess collection surrounding the extensor hallucis longus tendon and also. likely the tibialis anterior tendon. During ED course, patient received fluids, morphine, cefazolin sodium/dextrose 1 gm in 50 mls @ 200 mls/hr IVPB ED ONCE ONE , and Vancomycin HCL 1000 mg in sodium chloride 250 mls @ 166.667 mls/hr IVPB ONCE ONE. Patient's case was discussed with Dr. Ruvalcaba at 1709, Dr. Ruvalcaba recommends ortho consult. 1712 - Dr. Garza was consulted, he recommends admission. 1718 - Dr. Romero was consulted on patient's case, Dr. Romero is agreeable with admission. - Diagnoses Provider Diagnoses: Cellulitis, Sepsis, Foot abscess, right - Physician Notifications Discussed Care Of Patient With: Herve Ruvalcaba Time Discussed With Above Provider: 17:09 Instructed by Provider To: Other - Patient's case was discussed with Dr. Ruvalcaba at 1709, Dr. Ruvalcaba recommends ortho consult. 171 - Dr. Garza was consulted, he recommends admission. 1718 - Dr. Romero was consulted on patient' s case, Dr. Romero is agreeable with admission. - Critical Care Time Critical Care Time: 30-74 min - 33-year-old man with a history of IV drug abuse presents with multifocal cellulitis associated with signs and symptoms of sepsis with fever and tachycardia. He has an abscess on the right foot that I spoke to the orthopedic surgeon transportation security screener about and this will be drained tomorrow. The patient requires admission for IV antibiotics and close monitoring. Discharge - Sign-Out/Discharge Documenting (check all that apply): Patient Departure - admit - Discharge Plan Condition: Good Disposition: ADMITTED TO [facility] - Billing Disposition and Condition Condition: GOOD Disposition: Admitted to [facility] - Attestation Statements Document Initiated by José: Yes Documenting Jonahibe: JENIFFER HAHN Provider For Whom José is Documenting (Include Credential): MD José COLLINS Attestation: JENIFFER Esquivel, scribed for WILFRED GARY MD on 07/22/18 at 1015. Scribe Documentation Reviewed: Yes Provider Attestation: The documentation as recorded by the JENIFFER toth accurately reflects the service I personally performed and the decisions made by me, WILFRED GARY MD Status of Scryamilex Document: Viewed
[2018-07-21] MEDS ORDERED: ceFAZolin 1 GM ADVAN(*) 1 GM in NS 0.9% 50 ML* 50 ML IVPB ONE (13:58)
[2018-07-21] MEDS ORDERED: Morphine VIAL* 4 MG/ML VIAL (1 ml vial) IV PRN (13:59)
[2018-07-21] MEDS ORDERED: Acetaminophen TAB* 325 MG PO ONE (13:59)
[2018-07-21] MEDS ORDERED: Morphine VIAL* 4 MG/ML VIAL (1 ml vial) IV ONE (13:59)
[2018-07-21] MEDS ORDERED: NS 0.9% 50 ML* 100 ML ONE (15:11)
[2018-07-21 15:24] LABS: Hematocrit 41 % (42-52); Mean Corpuscular HGB Conc 34 g/dl (31-36); Mean Corpuscular Hemoglobin 33 pg (27-31); Mean Corpuscular Volume 96 fL (80-94); Mean Platelet Volume 6.9 fL (7.4-10.4); Platelet Count 365 10^3/ul (150-450); Red Cell Distribution Width 13 % (10.5-15); White Blood Count 22.5 10^3/ul (3.5-10.8)
[2018-07-21] MEDS ORDERED: [UNRECOGNIZED DRUG - OTHER] IVPB ONE (15:30)
[2018-07-21] MEDS ORDERED: ED ONCE IVPB ONE (15:30)
[2018-07-21] MEDS ORDERED: CEFAZOLIN 1 GM IVPB ONE (15:30)
[2018-07-21 15:39] LABS: INR 1.4 (0.77-1.02)
[2018-07-21 15:48] LABS: ABS Basophils 0 10^3/ul (0-0.2); ABS Eosinophils 0 10^3/ul (0-0.6); ABS Lymphocytes 1.2 10^3/ul (1.0-4.8); ABS Monocytes 1.8 10^3/ul (0-0.8); ABS Neutrophils 19.5 10^3/ul (1.5-7.7); ABS Nucleated RBC 0 10^3/ul; Eosinophil % 0 %; Lymphocyte % 5.3 %; Nucleated Red Blood Cells % 0
[2018-07-21 15:53] LABS: EGFR Non-African American 97.2 (>60)
[2018-07-21] MEDS ORDERED: Vancomycin(*) 1,000 MG in NS 0.9% 250 ML* 250 ML IVPB ONE (17:07)
[2018-07-21] MEDS ORDERED: NS 0.9% 250 ML* 250 ML ONE (17:29)
[2018-07-21] MEDS ORDERED: Piperacillin/Tazobac ADVAN(*) 3.375 GM in NS 0.9% 100 ML* 100 ML IVPB ONE (18:40)
[2018-07-21] MEDS ORDERED: Acetaminophen TAB* 325 MG PO PRN (18:44)
[2018-07-21] MEDS ORDERED: Zosyn per Pharmacy* NOTE FOLLOW UP SCH (19:00)
[2018-07-21] MEDS ORDERED: Phytonadione Oral Solution* 5 MG/25 ML UDC PO ONE (19:25)
[2018-07-21] MEDS: NS 0.9% 1000 ML* 1,000 ML IV SCH (20:41)
[2018-07-21] MEDS: oxyCODONE/Acetamin 5/325 MG* TAB PO PRN (21:40)
[2018-07-21] MEDS: Heparin VIAL(*) 5000 UNITS/ML VIAL (FIVE THOUSAND) SUBCUT SCH (21:40)
--- NOTE | 2018-07-21 21:45 | HP ---
CC: Dr. Garza.* HISTORY AND PHYSICAL: DATE OF ADMISSION: 07/21/18. PRIMARY CARE PROVIDER: None. CHIEF COMPLAINT: Right foot swelling. HISTORY OF PRESENT ILLNESS: Tanner Barreto is a 33-year-old male with a history of heroin use who presented to the hospital after he was placed in custodial today in the morning. The patient stated that the last time he injected heroin to his left forearm was at 5:30 this a.m. He denies any withdrawal symptoms at this point. He stated that approximately 6 days ago, he stubbed his left foot and since then he has been having more and more edema and erythema in the right foot. He also noticed today that after injecting heroin in the left forearm, it became swollen and painful and red. After he got in custodial, the officers noted the abnormality and brought patient for evaluation. Here, he was tachycardic with a temperature of 100.6. He is going to be admitted with diagnosis of sepsis, right foot abscess and left arm cellulitis. He was also noted to have superficial thrombophlebitis of the left forearm. PAST MEDICAL HISTORY: 1. History of hepatitis C. 2. History of questionable adrenal insufficiency when he was admitted for septic- like episode in May 2017. 3. History of IV drug use. PAST SURGICAL HISTORY: None. MEDICATIONS: None. ALLERGIES: LIDOCAINE. FAMILY HISTORY: Mother and father alive and well. A brother and sister both of polyglandular failure and Jon disease. The patient is not aware of having problems himself. SOCIAL HISTORY: The patient is homeless. [place] His mother also lives in there. He smokes half a pack of cigarettes a day, started smoking when he was a teenager. He denies any alcohol use. He uses IV heroin on a daily basis. REVIEW OF SYSTEMS: Please see history of present illness. All the remaining 12 - systems were reviewed with the patient and were otherwise negative. PHYSICAL EXAMINATION GENERAL: The patient is a very pleasant 33-year-old male who is in no acute distress. Alert, awake, and oriented x3. VITAL SIGNS: Blood pressure of 150/95, heart rate of 115, respiratory rate 18, oxygen saturation 96% on room air, temperature of 100.9. HEENT: Head: Atraumatic, normocephalic. Eyes: Pupils are equal and reactive to light and accommodation. Oropharynx clear. Mucosa moist. Poor dentition. NECK: Supple. No JVD. No bruit bilaterally. RESPIRATORY: Scant rhonchi at bilateral lungs, left more than right. CARDIOVASCULAR: Regular rate and rhythm. Tachycardia. No murmur. ABDOMEN: Soft, nontender. Bowel sounds are present in all 4 quadrants. EXTREMITIES: There was massive edema of the right foot with probable fluctuation noted on the dorsum of the right foot with cellulitis reaching to the level above his ankle on the right. There are 2 pustular lesions within the area of erythema. There is no purulent drainage. There are no skin abrasions or cuts noted on the foot. On his left forearm, it is also swollen. There is an erythema present down the cubital fossa and extending approximately 15 cm each direction. There is no fluctuation noted on evaluation. The patient also has a small area of lesion covered with eschar on his forehead at approximately 1 cm in diameter. NEURO EVALUATION: Speech clear. Cranial nerves II through XII grossly intact. Motor strength is 5/5 bilaterally. PSYCHIATRIC EVALUATION: Oriented x3 with no evidence of anxiety or depression. DIAGNOSTIC STUDIES/LAB DATA: Showed white blood cell count 22.5, hemoglobin of 14.0, hematocrit of 41, and platelets of 365. INR was 1.4. Sodium was 132, potassium 3.6, chloride 97, carbon dioxide 26, BUN 13, creatinine 0.9. Lactic acid initially at 2.1 and corrected at 0.7 after IV fluids. Liver function tests unremarkable. Cortisol level was pending at the time of dictation. Soft tissue ultrasound obtained on the right foot and the left forearm showed left upper extremity cellulitis as well as segment of superficial thrombophlebitis involving the left cephalic vein as well as cellulitis of the medial dorsum of the right foot with associated 7.4 x 1.5 x 2.5 cm loculated abscess collection surrounding the extensor hallucis longus tendon and also likely the tibialis anterior tendon. ASSESSMENT AND PLAN: 1. A 33-year-old male with history of heroin use who presents with right foot abscess. Dr. Garza was consulted and the plan for the patient to go to the OR at 5 p.m. tomorrow afternoon. I will obtain an EKG to clear patient for surgery, but so far he appears to be a good candidate for surgery with no evidence of exercise intolerance and no past medical history apart from hepatitis C. I will obtain cortisol level to evaluate this further. For the time being, the patient will receive vancomycin and cefazolin in the emergency department. Now we will place him on vancomycin and Zosyn. Once again, the treatment for his sepsis will need to include definitive treatment of the patient's abscess of the right foot. 2. In regards to the patient's cellulitis of the left forearm, once again antibiotics started as above. 3. In regards to patient's superficial thrombophlebitis in the area, I will place the patient on ibuprofen, Tylenol "cold pack compresses." 4. For DVT prophylaxis, the patient is at moderate risk and heparin subcutaneous is going to be provided until stopped prior to surgery. 5. For history of heroin abuse, the patient is going to be placed on Suboxone in the morning. For the time being, no withdrawal symptoms were noted or complained of by the patient. I will also place the patient on Toradol on a p.r.n. basis. 6. The patient's code status is full. His surrogate decision maker is mother. Unfortunately, the patient did not remember which phone number she has to be able to be contacted. TIME SPENT: Approximately, 72 minutes was spent on admission of this patient, more than half of the time was spent [id number] with the patient during the interview and physical exam. [id number]/[facility] #: [id number] MTDD
[2018-07-22] MEDS: Vancomycin(*) 1,250 MG in NS 0.9% 250 ML* 250 ML IVPB SCH ×2 (01:57→10:55)
[2018-07-22] MEDS: ZOSYN 3.375 GM Q6H IVPB SCH ×8 (03:40→21:24)
[2018-07-22] MEDS: oxyCODONE/Acetamin 5/325 MG* TAB PO PRN ×3 (03:48→22:28)
[2018-07-22] MEDS: Ketorolac INJ* 15 MG/ML 1 ML VIAL IV PUSH PRN ×2 (04:50→20:27)
[2018-07-22 05:09] LABS: Urine Appearance Cloudy; Urine Blood Negative (Negative); Urine Color Yellow; Urine Ketones Negative (Negative); Urine Protein 1+(30 mg/dL) (Negative); Urine Red Blood Cell Absent (Absent); Urine Specific Gravity 1.029 (1.010-1.030); Urine Urobilinogen Positive (Negative); Urine White Blood Cell 2+(11-20/hpf) (Absent)
[2018-07-22] MEDS: Heparin VIAL(*) 5000 UNITS/ML VIAL (FIVE THOUSAND) SUBCUT SCH (05:49)
[2018-07-22 06:02] LABS: ABS Basophils 0.1 10^3/ul (0-0.2); ABS Eosinophils 0.1 10^3/ul (0-0.6); ABS Lymphocytes 1.3 10^3/ul (1.0-4.8); ABS Monocytes 1.3 10^3/ul (0-0.8); ABS Neutrophils 12.8 10^3/ul (1.5-7.7); ABS Nucleated RBC 0 10^3/ul; Eosinophil % 0.5 %; Hematocrit 34 % (42-52); Hemoglobin 11.6 g/dl (14.0-18.0); Lymphocyte % 8.7 %; Mean Corpuscular HGB Conc 34 g/dl (31-36); Mean Corpuscular Hemoglobin 33 pg (27-31); Mean Corpuscular Volume 97 fL (80-94); Mean Platelet Volume 7.2 fL (7.4-10.4); Nucleated Red Blood Cells % 0.1; Platelet Count 267 10^3/ul (150-450); Red Cell Distribution Width 13 % (10.5-15); White Blood Count 15.6 10^3/ul (3.5-10.8)
[2018-07-22 06:12] LABS: INR 1.82 (0.77-1.02)
[2018-07-22] MEDS: NS 0.9% 1000 ML* 1,000 ML IV SCH (07:18)
[2018-07-22 07:21] LABS: EGFR Non-African American 119.9 (>60)
[2018-07-22] MEDS ORDERED: Phytonadione IV (Adult)* 10 MG/ML 1 ML AMP IV ONE ×2 (08:47→15:04)
[2018-07-22] MEDS ORDERED: Phytonadione 10 mg in 50 mL NS over 30 min IV ONE (09:00)
[2018-07-22] MEDS ORDERED: Buprenorp/Nalox 4-1 MG FILM 1 EACH SL FILM SCH (09:00)
[2018-07-22 11:23] LABS: INR 1.56 (0.77-1.02)
--- NOTE | 2018-07-22 12:23 | CONS ---
DATE OF ADMISSION: 07/21/2018. DATE OF CONSULTATION: 07/22/2018. ATTENDING ORTHOPEDIC PROVIDER: Dr. Ian Garza. CHIEF COMPLAINT: Right foot swelling. HISTORY OF PRESENT ILLNESS: Mr. Barreto is a 33-year-old male who presented to the hospital coming in from halfway this morning due to a painful, swollen right foot. Approximately one week ago, the patient tripped over his right foot at which time he had immediate pain, but did not remove his shoe. Approximately two days later he did remove his shoe and noticed that the foot had begun to swell. Swelling and redness increased since. When officers at the halfway noted abnormality of his foot, he was brought in to the emergency room for evaluation. Upon arrival he was noted to be tachycardic with a low grade temperature. The patient was admitted with the diagnosis of sepsis right foot, abscess and left arm cellulitis. Of note, he also has redness and pain of his left arm. He injected heroin into this site yesterday. Today his right foot and left arm are both painful with any palpation or range of motion. He does use heroin as well as methamphetamines. He has a history of hepatitis C. The patient has not had any history of surgery in the past. It is unknown whether his family members tolerate surgery well. PAST MEDICAL HISTORY: Hepatitis C, questionable adrenal insufficiency, history of IV drug use. PAST SURGICAL HISTORY: None. MEDICATIONS: None. ALLERGIES: LIDOCAINE PATCH, confirms that he has had novocaine such as at the dentist without any reaction. FAMILY HISTORY: Brother and sister from polyglandular failure and Saint Anthony's disease. SOCIAL HISTORY: The [place] He smokes half-a-pack of cigarettes per day. He denies alcohol use. He uses heroin daily , also uses methamphetamine. He denies other drug use. Last use of both heroin and methamphetamine was yesterday. REVIEW OF SYSTEMS: General: No feeling of fever or chills. HEENT: No changes in vision, no head trauma. Cardio: No irregular heartbeats or chest pain. Respiratory: No shortness of breath, no cough. Does have a history of asthma for which he has been prescribed an inhaler in the past, but does not use it. Abdomen: No abdominal pain, vomiting, nausea, diarrhea. : No dysuria. Musculoskeletal: Left foot is red and painful. He is able to move his ankle and his toes well without pain. Left upper extremity: Redness and swelling of the left upper arm, able to move the elbow well, though he confirms it is swollen. Neuro: Sensation is intact throughout extremities without any numbness or paresthesias. Skin: Redness of the right foot and left arm. PHYSICAL EXAM: The patient is in no acute distress. He is cooperative. Vital signs at the current time: Temperature 98.0, pulse rate 62, respiratory rate 16 , blood pressure 102/58, oxygen saturation 97. HEENT: Head normocephalic, atraumatic. Eyes: Extraocular movements are intact. Respiratory: Clear to auscultation bilaterally. Cardiovascular: Regular rate and rhythm, S1, S2. Abdomen: Bowel sounds normoactive, soft and nontender. No guarding, no rigidity. Extremities: Edema of the dorsum of the right lower extremity. There is edema and erythema of the dorsum of the right foot. It is warm and tender to touch. It does seem that the cellulitis is beginning to streak up the anterior leg. There is no drainage. There is no foul odor. There are no open lesions. Right lower extremity: He does move his hip, knee, ankle, and MTP's well without pain. Left lower extremity: Skin envelope intact. Nontender to palpation. Moves hip, knee, ankle, and MTP's well. Right upper extremity: Skin envelope intact. Moves shoulder, elbow, wrist, and digits well without pain. He is nontender. Left upper extremity: His left upper arm is erythematous, warm, and tender to palpation. He does have at least 90 degrees of arch motion at the elbow without any pain. Wrist, digits, and shoulder range of motion is swollen and painful. Neuro: Sensation is intact to light touch throughout bilateral upper and lower extremities. DIAGNOSTIC STUDIES: Soft tissue ultrasound of right foot reveals cellulitis over the medial dorsum of the right foot with associated 7.4 x 1.5 x 2.5 cm loculated abscess collection surrounding the extensor hallucis longus tendon and likely tibialis anterior tendon, as well as left upper extremity cellulitis and small segment superficial thrombophlebitis involving the left cephalic vein. No loculated left upper extremity abscess collection evident. ASSESSMENT: Right foot abscess, cellulitis of the left arm. PLAN: The patient will be taken to the operating room this afternoon around 5 o 'clock for I&D of his right foot. He will be NPO. DANNY OROPEZA [id number]/[facility] #: [id number] [facility] HOSPITALJacob
--- NOTE | 2018-07-22 15:13 | PN ---
Subjective Date of Service: 07/22/18 Interval History: Pt's pain is well controlled. R foot less swollen. Objective Active Medications: Acetaminophen (Tylenol Tab*) 650 mg PO Q4H PRN PRN Reason: FEVER/PAIN Vancomycin HCl 1,250 mg/ (Sodium Chloride) 250 mls @ 166.667 mls/hr IVPB Q8H [facility]; Protocol Last Admin: 07/22/18 10:55 Dose: 166.667 mls/hr Sodium Chloride (Ns 0.9% 1000 Ml*) 1,000 mls @ 125 mls/hr IV PER RATE [facility] Last Admin: 07/22/18 07:18 Dose: 125 mls/hr Piperacillin Sod/Tazobactam (Sod 3.375 gm/ Sodium Chloride) 100 mls @ 200 mls/ hr IVPB Q6H [facility] Last Admin: 07/22/18 08:57 Dose: 200 mls/hr Ibuprofen (Motrin Tab*) 600 mg PO Q6H PRN PRN Reason: PAIN Ketorolac Tromethamine (Toradol Inj*) 15 mg IV PUSH Q6H PRN PRN Reason: PAIN Stop: 07/22/18 23:59 Last Admin: 07/22/18 04:50 Dose: 15 mg Morphine Sulfate (Morphine Vial*) 10 mg IV Q15M PRN PRN Reason: PAIN Last Admin: 07/21/18 15:16 Dose: 10 mg Oxycodone/Acetaminophen (Percocet 5/325 Tab*) 1 tab PO Q4H PRN PRN Reason: Pain Last Admin: 07/22/18 10:14 Dose: 1 tab Pharmacy Consult (Zosyn Per Pharmacy*) 1 note FOLLOW UP .ZOSYN PER PHARMACY [facility] Pharmacy Profile Note (Vancomycin Trough Check) 1 note FOLLOW UP ONCE ONE Stop: 07/23/18 09:31 Vital Signs - 8 hr 07/22/18 07/22/18 07/22/18 07:34 07:39 08:00 Temperature 98.0 F Pulse Rate 82 Respiratory 18 16 Rate Blood Pressure 90/51 98/60 (mmHg) O2 Sat by Pulse 97 97 Oximetry 07/22/18 07/22/18 07/22/18 08:36 10:14 12:17 Temperature 98.4 F Pulse Rate 62 81 Respiratory 16 18 17 Rate Blood Pressure 102/58 86/41 (mmHg) O2 Sat by Pulse 99 Oximetry 07/22/18 07/22/18 12:33 12:59 Temperature Pulse Rate Respiratory 16 Rate Blood Pressure 92/58 (mmHg) O2 Sat by Pulse Oximetry Oxygen Devices in Use Now: None Appearance: 33 yo M in nAD, aAOx3 Eyes: No Scleral Icterus, PERRLA Ears/Nose/Mouth/Throat: NL Teeth, Lips, Gums, Mucous Membranes Moist Neck: NL Appearance and Movements; NL JVP, Trachea Midline Respiratory: Symmetrical Chest Expansion and Respiratory Effort, Clear to Auscultation Cardiovascular: NL Sounds; No Murmurs; No JVD, RRR Abdominal: NL Sounds; No Tenderness; No Distention Lymphatic: No Cervical Adenopathy Extremities: No Clubbing, Cyanosis, - - large R foot edema and left arm edema with "boggy" elbow, but no problems with ROM in left elbow. Both R foot and left arm have less erythema c/w yesterday Skin: No Nodules or Sclerosis, - - see above Neurological: Alert and Oriented x 3, NL Muscle Strength and Tone Result Diagrams: 07/22/18 05:44 07/22/18 05:44 Microbiology and Other Data: Microbiology 07/21/18 15:15 Aerobic Blood Culture - Preliminary Blood Venous Strep Pyogenes (Grp A) Anaerobic Blood Culture - Preliminary Strep Pyogenes (Grp A) 07/21/18 15:15 Aerobic Blood Culture - Preliminary Blood Venous Strep Pyogenes (Grp A) Anaerobic Blood Culture - Preliminary Strep Pyogenes (Grp A) Assess/Plan/Problems-Billing Assessment: 33 yo IVDU(heroin), Hep C, got in senior care on 07/21/18 noted to have R foot swelling and brought in to ED the same day with R foot abscess, L arm cellulitis and superficial thrombophlebitis - Patient Problems (1) Foot abscess, right Comment: with strep pyogenes bacteremia and sepsis Echo (TTE) pending ID consulted. Cont Clinda/Ceftriaxone To OR today at 5PM (2) IV drug abuse Comment: Cont IV opioids for significant foot abscess. Will need to be placed on Suboxone at d/c (3) Left arm cellulitis Comment: improving. D/w Dr. Macedo : Vanc/Zosyn changed to Ceftriaxone / Clinda (4) Superficial thrombophlebitis Comment: left arm cont NSAIDS and cold packs (5) Coagulopathy Comment: despite 10 mg of Vit K (IV) today, INR still 1.56 D/w DR. Garza: likley due to h/o Hep C. will tx with another Vit K 5 mg IV now. (6) DVT prophylaxis Comment: on hold due to preop SCD's Status and Disposition: inpatient
[2018-07-22] MEDS ORDERED: Magnesium Sulfate 1 GM IV* 1 GM/100 ML BAG IV ONE (15:30)
[2018-07-22] MEDS ORDERED: Clindamycin 600 MG IVPREMIX(* 600 MG/50 ML SDV IV SCH (16:00)
[2018-07-22] MEDS: KCL 20 MEQ/100 ML IVPREMIX* 20 MEQ/100 ML BAG IV SCH ×2 (16:41→22:27)
[2018-07-22] MEDS ORDERED: Lidocaine 2% PF * 5 ML VIAL ONE (17:35)
[2018-07-22] MEDS ORDERED: Midazolam* 1 MG/ML 2 ML VIAL (2 MG) ONE (17:36)
[2018-07-22] MEDS ORDERED: fentaNYL* 50 MCG/ML 2 ML VIAL (100 MCG VIAL) ONE ×4 (17:36→19:03)
[2018-07-22] MEDS ORDERED: Propofol* 10 MG/ML 20 ML BTL ONE (18:09)
[2018-07-22] MEDS ORDERED: Succinylcholine* 20 MG/ML 10 ML VIAL ONE (18:09)
[2018-07-22] MEDS ORDERED: Dexamethasone IV* 4 MG/ML 1 ML (4 MG) ONE (18:09)
[2018-07-22] MEDS ORDERED: Famotidine IV* 10 MG/ML 2 ML (20 mg) ONE (18:09)
[2018-07-22] MEDS ORDERED: Esmolol* 10 MG/ML 10 ML (100 mg) ONE (18:10)
[2018-07-22] MEDS ORDERED: Naloxone* 0.4 MG/ML 1 ML VIAL IV PRN (18:25)
[2018-07-22] MEDS ORDERED: PROCHLORPERAZINE INJ 5 MG/ML 2 ML VIAL IV PRN (18:25)
[2018-07-22] MEDS ORDERED: fentaNYL* 50 MCG/ML 2 ML VIAL (100 MCG VIAL) IV PRN (18:25)
[2018-07-22] MEDS ORDERED: Ondansetron INJ* 2 MG/ML VIAL IV PRN (18:25)
[2018-07-22] MEDS ORDERED: DiMENhydriNATE IV* 50 MG/ML VIAL IV PUSH PRN (18:25)
[2018-07-22] MEDS ORDERED: Levalbuterol 0.63MG/3ML NEB* UNIT OF USE INH PRN (18:25)
--- NOTE | 2018-07-22 19:49 | ECHO ---
Patient: SABRA BRIDGES [facility] Rec#: [id number] : 1985 Date: 07/22/2018 Age: 33y Height: 173 cm / 68.1 in Weight: 82 kg / 180.7 lbs Sex: M BSA: 1.96 Room#: 342 Admit Date#: 07/21/2018 Type: Inpatient Referring: Nicky Lucio MD Reading: Serina Geronimo MD Clod Puller: Senait Lai,CATIACS,RDMS CC: Live HILARIO,[facility] Tr[facility]hor[facility] Ech[facility] Indication: Bacteremia BP: 92/58 HR: 110 Rhythm: Tachycardia Findings History: Smoker, IVDU Technical Comments: The study quality is good. Left Ventricle: The left ventricular chamber size is normal. Mild concentric left ventricular hypertrophy is observed. Global left ventricular wall motion and contractility are within normal limits. The left ventricle appears hyperdynamic. The estimated ejection fraction is 55-60%. Normal left ventricular diastolic filling is observed. Left Atrium: The left atrial chamber size is normal. Right Ventricle: The right ventricle is mildly dilated. The right ventricular global systolic function is low normal. Right Atrium: The right atrial cavity size is normal. Aortic Valve: The aortic valve is trileaflet. Systolic excursion of the aortic valve is normal. There is no evidence of aortic regurgitation. There is no evidence of aortic stenosis. Mitral Valve: The mitral valve leaflets are mildly thickened.Mild sclerosis of the anterior leaflet. There is a trace of mitral regurgitation. There is no evidence of mitral stenosis. Tricuspid Valve: The tricuspid valve leaflets are mildly thickened. Tricuspid valve leaflet mobility appears normal. There is trace tricuspid regurgitation. Unable to estimate the right ventricular systolic pressure. Pulmonic Valve: The pulmonic valve appears normal. There is a trace pulmonic regurgitation. Pericardium: There is no significant pericardial effusion. Aorta: The aortic root appears normal. There is no dilatation of the aortic arch. Pulmonary Artery: The main pulmonary artery appears normal. Venous: The inferior vena cava appears normal in size. There is a greater than 50% respiratory change in the inferior vena cava dimension. Conclusions Mild concentric left ventricular hypertrophy is observed. Global left ventricular wall motion and contractility are within normal limits. The left ventricle appears hyperdynamic. The estimated ejection fraction is 55-60%. The right ventricle is mildly dilated. The right ventricular global systolic function is low normal. No vegetations noted on any valve leaflet. The mitral valve leaflets are mildly thickened. There is a trace of mitral regurgitation. There is trace tricuspid regurgitation. No prior echo to compare. Measurements Name Value Normal Range RVIDd (AP) 2D 3 cm (0.9 - 2.6) RVDdMajor (2D) 3.2 cm (2.2 - 4.4) RAd ISD 4CH 4.7 cm (3.4 - 4.9) RA (A4C)W 4.4 cm (2.9 - 4.6) IVSd (2D) 1.1 cm (0.6 - 1) LVPWd (2D) 1.2 cm (0.6 - 1) LVIDd (2D) 4.9 cm (3.6 - 5.4) LVIDs (2D) 3 cm - LV FS (2D) 38 % (25 - 45) Aortic Annulus 2.2 cm (1.4 - 2.6) Ao root diameter (2D) 3 cm (2.1 - 3.5) Ascending Ao 2.4 cm (2.1 - 3.4) Aortic arch 2.5 cm (1.8 - 3.4) LA dimension (AP) 2D 4 cm (2.3 - 3.8) LAd ISD 4CH 5.1 cm (2.9 - 5.3) LA ISD 4CH W 4.4 cm (2.5 - 4.5) Name Value Normal Range LA ESV BP (A/L) index 33 ml/m2 - Name Value Normal Range MV E-wave Vmax 1.3 m/sec - MV deceleration time 88 msec - MV A-wave Vmax 0.9 m/sec - MV E:A ratio 1.4 ratio - LV septal e' Vmax 0.1 m/sec - LV lateral e' Vmax 0.13 m/sec - LV E:e' septal ratio 13 ratio - LV E:e' lateral ratio 10 ratio - Name Value Normal Range AV Vmax 1.6 m/sec - AV VTI 26 cm - AV peak gradient 10 mmHg - AV mean gradient 7 mmHg - LVOT Vmax 1.4 m/sec - LVOT VTI 23 cm - LVOT peak gradient 8 mmHg - LVOT mean gradient 5 mmHg - MARCELLUS Vmax 1 m/sec - Name Value Normal Range MV Vmax 1 m/sec - MV VTI 18 cm - MV peak gradient 4 mmHg - MV mean gradient 2 mmHg - MV PHT 54 msec - MVA (PHT) 4.1 cm2 - Name Value Normal Range RAP 8 mmHg - IVC diameter 2 cm - Name Value Normal Range PV Vmax 1.1 m/sec - PV peak gradient 4 mmHg -
[2018-07-22] MEDS: cefTRIAXone(*) 1 GM in NS 0.9% 50 ML* 50 ML IVPB SCH (22:27)
[2018-07-23] MEDS: oxyCODONE/Acetamin 5/325 MG* TAB PO PRN ×5 (03:19→23:14)
[2018-07-23] MEDS: ZOSYN 3.375 GM Q6H IVPB SCH ×2 (03:19)
[2018-07-23] MEDS: KCL 20 MEQ/100 ML IVPREMIX* 20 MEQ/100 ML BAG IV SCH (04:12)
[2018-07-23 06:10] LABS: ABS Basophils 0 10^3/ul (0-0.2); ABS Eosinophils 0 10^3/ul (0-0.6); ABS Lymphocytes 0.6 10^3/ul (1.0-4.8); ABS Monocytes 0.6 10^3/ul (0-0.8); ABS Neutrophils 14.8 10^3/ul (1.5-7.7); ABS Nucleated RBC 0 10^3/ul; Eosinophil % 0 %; Hematocrit 33 % (42-52); Hemoglobin 11.2 g/dl (14.0-18.0); Lymphocyte % 3.8 %; Mean Corpuscular HGB Conc 34 g/dl (31-36); Mean Corpuscular Hemoglobin 33 pg (27-31); Mean Corpuscular Volume 96 fL (80-94); Mean Platelet Volume 7.4 fL (7.4-10.4); Nucleated Red Blood Cells % 0; Platelet Count 363 10^3/ul (150-450); Red Blood Count 3.44 10^6/ul (4.00-5.40); Red Cell Distribution Width 13 % (10.5-15)
[2018-07-23 06:27] LABS: EGFR Non-African American 123.7 (>60)
[2018-07-23] MEDS: Ibuprofen TAB* 600 MG PO PRN ×3 (07:48→23:14)
[2018-07-23] MEDS ORDERED: Vancomycin Trough Check NOTE FOLLOW UP ONE (09:30)
[2018-07-23] MEDS: Morphine VIAL* 4 MG/ML VIAL (1 ml vial) IV PRN ×2 (09:48→15:03)
--- NOTE | 2018-07-23 09:49 | PN ---
Progress Note - Progress Note Date of Service: 07/23/18 SOAP: Subjective: []Patient was seen and examined at bedside today. He is POD 1 s/p washout of right foot. He overall feels better today than he has in the past several days. His left arm is less painful than it was yesterday and redness is improving. Objective: []General: Well appearing, NAD RLE: Right foot wrapped in surgical dressing. Toes with edema, capillary refill brisk distally, sensation intact throughout exposed toes. No erythema proximal or distal to dressing. Calf is supple and nontender. LUE: Erythema is much improved. Mild violacious coloration over bicep with some induration though remains compressible, nontender and sensation intact. Sensation intact though decreased over tricep, area is nontender, nonerythematous and compressible. Able to produce elbow ROM 0- 110, painful only at endpoints of motion. radial pulse 2+. Arm is warm and appears well perfused without mottling. Assessment: [] POD 1 SP washout of abscess of right foot left upper extremity cellulitis Plan: []RLE: dressing to remain CDI today. Change tomorrow and daily thereafter. Pull back packign 1 cm daily. ABX per ID: [email or web address]. xray ordered LUE: MRI due to induration and violacious coloration. Dr. Iglesias made aware Vital Signs Temp 98.4 F 07/23/18 08:09 Pulse 82 07/23/18 08:09 Resp 16 07/23/18 08:09 BP 159/67 07/23/18 08:09 Pulse Ox 99 07/23/18 08:09 Intake & Output 07/22/18 07/23/18 07/23/18 18:59 06:59 18:59 Intake Total 3219 1985 Output Total 600 2500 Balance 2619 -515 Intake: IV Fluids 3119 105 ABX - VANCOMYCIN 290 ABX - ZOSYN 215 105 LR 820 NS (0.9%) 1574 mag 110 vit K 110 IVPB 100 ABX - ZOSYN 100 Oral 0 1880 Output: Urine 600 2500 Other: Estimated Void Medium # Voids 1 Laboratory Last Values WBC 16.0 10^3/ul (3.5-10.8) H 07/23/18 05:35 RBC 3.44 10^6/ul (4.00-5.40) L 07/23/18 05:35 Hgb 11.2 g/dl (14.0-18.0) L 07/23/18 05:35 Hct 33 % (42-52) L 07/23/18 05:35 MCV 96 fL (80-94) H 07/23/18 05:35 MCH 33 pg (27-31) H 07/23/18 05:35 MCHC 34 g/dl (31-36) 07/23/18 05:35 RDW 13 % (10.5-15) 07/23/18 05:35 Plt Count 363 10^3/ul (150-450) 07/23/18 05:35 MPV 7.4 fL (7.4-10.4) 07/23/18 05:35 Neut % (Auto) 92.6 % 07/23/18 05:35 Lymph % (Auto) 3.8 % 07/23/18 05:35 [place] % (Auto) 3.5 % 07/23/18 05:35 Eos % (Auto) 0 % 07/23/18 05:35 Baso % (Auto) 0.1 % 07/23/18 05:35 Absolute Neuts (auto) 14.8 10^3/ul (1.5-7.7) H 07/23/18 05:35 Absolute Lymphs (auto) 0.6 10^3/ul (1.0-4.8) L 07/23/18 05:35 Absolute Monos (auto) 0.6 10^3/ul (0-0.8) 07/23/18 05:35 Absolute Eos (auto) 0 10^3/ul (0-0.6) 07/23/18 05:35 Absolute Basos (auto) 0 10^3/ul (0-0.2) 07/23/18 05:35 Absolute Nucleated RBC 0 10^3/ul 07/23/18 05:35 Nucleated RBC % 0 07/23/18 05:35 INR (Anticoag Therapy) 1.56 (0.77-1.02) H 07/22/18 10:52 APTT 28.5 seconds (26.0-36.3) 07/21/18 15:15 Sodium 137 mmol/L (135-145) 07/23/18 05:35 Potassium 4.1 mmol/L (3.5-5.0) 07/23/18 05:35 Chloride 108 mmol/L (101-111) 07/23/18 05:35 Carbon Dioxide 24 mmol/L (22-32) 07/23/18 05:35 Anion Gap 5 mmol/L (2-11) 07/23/18 05:35 BUN 11 mg/dL (6-24) 07/23/18 05:35 Creatinine 0.73 mg/dL (0.67-1.17) 07/23/18 05:35 Est GFR ( Amer) 149.7 (>60) 07/23/18 05:35 Est GFR (Non-Af Amer) 123.7 (>60) 07/23/18 05:35 BUN/Creatinine Ratio 15.1 (8-20) 07/23/18 05:35 Glucose 133 mg/dL (70-100) H 07/23/18 05:35 Lactic Acid 0.7 mmol/L (0.5-2.0) 07/21/18 18:24 Calcium 8.0 mg/dL (8.6-10.3) L 07/23/18 05:35 Magnesium 2.3 mg/dL (1.9-2.7) 07/23/18 05:35 Total Bilirubin 0.60 mg/dL (0.2-1.0) 07/21/18 15:15 AST 18 U/L (13-39) 07/21/18 15:15 ALT 31 U/L (7-52) 07/21/18 15:15 Alkaline Phosphatase 71 U/L (34-104) 07/21/18 15:15 Troponin I 0.03 ng/mL (<0.04) 07/21/18 15:15 Total Protein 7.2 g/dL (6.4-8.9) 07/21/18 15:15 Albumin 3.6 g/dL (3.2-5.2) 07/21/18 15:15 Globulin 3.6 g/dL (2-4) 07/21/18 15:15 Albumin/Globulin Ratio 1.0 (1-3) 07/21/18 15:15 Cortisol 18.28 mcg/dL 07/21/18 15:15 Urine Color Yellow 07/22/18 04:46 Urine Appearance Cloudy 07/22/18 04:46 Urine pH 5.0 (5-9) 07/22/18 04:46 Ur Specific [place] 1.029 (1.010-1.030) 07/22/18 04:46 Urine Protein 1+(30 mg/dl) (Negative) A 07/22/18 04:46 Urine Ketones Negative (Negative) 07/22/18 04:46 Urine Blood Negative (Negative) 07/22/18 04:46 Urine Nitrate Negative (Negative) 07/22/18 04:46 Urine Bilirubin Negative (Negative) 07/22/18 04:46 Urine Urobilinogen Positive (Negative) A 07/22/18 04:46 Ur Leukocyte Esterase Trace (Negative) A 07/22/18 04:46 Urine WBC (Auto) 2+(11-20/hpf) (Absent) A 07/22/18 04:46 Urine RBC (Auto) Absent (Absent) 07/22/18 04:46 Ur Squamous Epith Cells Present (Absent) A 07/22/18 04:46 Urine Bacteria Absent (Absent) 07/22/18 04:46 Urine Glucose Negative (Negative) 07/22/18 04:46
--- NOTE | 2018-07-23 10:17 | OP ---
OPERATIVE REPORT: DATE OF OPERATION: 07/22/18 DATE OF : 85 SURGEON: Dr. Earl Iglesias. TECHNICAL SALES ADVISOR: None. ANESTHESIOLOGIST: Dr. Miguel A Patrick. ANESTHESIA: General anesthesia. PRE-OP DIAGNOSIS: 1. Right foot abscess. POST-OP DIAGNOSIS: 1. Right foot abscess. 2. Right extensor hallucis longis (EHL) tendon infected tenosynovitis OPERATIVE PROCEDURE: 1. Incision, irrigation, and debridement of right foot abscess, deep, including infection along EHL tendon. 2. Diagnostic ultrasound, right foot, for localization of collection. IV FLUIDS: 800 cc of crystalloid. ANTIBIOTICS: Ceftriaxone 1 g IV. TOURNIQUET TIME: 23 minutes at 300 mmHg at the level of the thigh. SKIN TO SKIN TIME: 20 minutes. SPECIMEN: Cultures, aerobic and anaerobic, from right dorsal midfoot and forefoot fluid collection. IMPLANTS: Iodoform wick stripping gauze placed. IRRIGATION FLUID UTILIZED: 3000 cc. ESTIMATED BLOOD LOSS: Minimal. COMPLICATIONS: None. INDICATIONS FOR PROCEDURE: The patient is a 33-year-old man, homeless, hepatitis C, IV drug user, who [place] [facility] [place] yesterday, with complaints of a swollen right foot. The patient states that approximately 1 week prior he tripped over his right foot and developed immediate pain about the foot. Two days later, he removed his shoe to notice there had been some development of right foot swelling. The swelling and erythema had increased about the right foot until yesterday over the past week. The patient also in the last several days injected IV drugs into a vein in the left antecubital area, left elbow. He has had some redness and swelling in that area since. The patient was in senior care and officers noted some swelling and erythema and pain and tenderness at the right foot and brought him to the emergency room for [place] [facility] He was noted to be tachycardic with a low-grade temperature and met diagnostic criteria for sepsis. He was admitted for a right foot abscess, left upper extremity cellulitis, sepsis. Ultrasound showed a fluid collection in the right dorsal foot and showed superficial thrombophlebitis of the left upper extremity near the left elbow. Orthopedic surgery was consulted. DANNY Albert, wrote a note on 07/22/18. Dr. Garza was initially consulted, but I volunteered to perform the procedure. DESCRIPTION OF PROCEDURE: In preoperative holding, the patient signed a written consent. Operative extremity was marked in preoperative holding. The patient was taken back to the operating room and placed supine on the operating room table. Sedated and intubated. A tourniquet was placed around the right thigh. Bone foam was placed. Mini time-out was performed. I brought in an ultrasound, handheld device. I placed this on the dorsum of the foot to localize the fluid collection to guide my incision, as his foot was very swollen but did not clearly demonstrate the location of the fluid collection. Ultrasound report from earlier today was somewhat vague. I applied the ultrasound probe, I was able to visualize increased fluid, significant around the EHL tendon, from the level of the proximal phalanx all the way up to the level of the navicular bone. I then palpated as well the fluid collection. I decided that I would make my incision just medial to the EHL tendon, that would enable me to inspect both EHL and tibialis anterior tendons, as both were mentioned to be possibly involved in preoperative ultrasound. The right lower extremity was prepped and draped. Formal surgical time-out performed. Esmarch was applied and tourniquet was elevated to 300 mmHg. I made a longitudinal incision over the medial aspect of the forefoot and midfoot, medial to the EHL tendon. After incising through the skin, I dissected through the subcutaneous tissue with dissection scissors. A small nerve was visualized and was taken medially with the medial skin. Immediately, there was a large flow of pus. Aerobic and anaerobic culture swabs were obtained. I dissected down to the EHL tendon. No longer clear tendon sheath visible. There was some fibers crossing tissue that I removed. Extensor retinaculum more proximal, about the junction of the mid foot and the ankle, was appreciated and was respected for the most part. I incised only perhaps 5 mm of that. I tracked proximal and distal along the EHL to open up any adhesions. I visualized the tibialis anterior tendon sheath. I incised it along part of the length in line with the tibialis anterior fibers. I visualized the tibialis anterior. There was no clear pus present along that tendon but I released along it within the sheath. I next irrigated with a 3 L of normal saline using cystoscopy tubing. I next placed iodoform wick stripping within the wound. I next closed the wound. I did so with a running skin stitch with nylon 3.0 suture. Specifically , I placed one running stitch in the proximal half of the incision and one in the distal half of the incision. My iodoform stripping exited the wound at its midpoint from proximal to distal, which would allow some drainage from the wound. The 4x4s, sterile Webril, Cob[place]. The patient was then awakened, extubated, and taken to the PACU. The patient did receive a dose of ceftriaxone immediately preoperatively given by Anesthesia. DISPOSITION: The patient was re-admitted to the hospitalist service. The patient had grown out in his blood Strep pyogenes, group A strep. Antibiotics will be ceftriaxone as well as either clindamycin or Zosyn. Dr. Macedo has been consulted in some capacity already and the hospitalist service will continue to manage antibiotics. I would like the iodoform stripping to be removed, pulled back 1 cm each day with a dressing change. I believe that the stripping will take approximately 7 days to be removed entirely. Otherwise elevation of right lower extremity. We will monitor the progress of the left upper extremity, which is severely swollen and erythematous of skin. The patient might require an MRI to look for a deeper fluid collection that perhaps was not appreciated by diagnostic ultrasound preoperatively. I will continue to follow the patient. I would like to see the patient in approximately 14 days postoperatively in clinic for removal of stitches and wound check. Also, we will place the patient in a hard postop shoe to minimize movement of the great toe, postoperatively, to expedite healing and infection treatment. It should be noted that on my preoperative exam, the patient was most painful with passive range of motion of the great toe, so the ultrasound and intraoperative findings are not surprising and this patient's diagnoses besides being of a forefoot and midfoot dorsal abscess, would best be described as infectious tenosynovitis of the EHL tendon right foot. [id number]/[facility] #: [id number] [address] HOSPITALJacob
--- NOTE | 2018-07-23 12:51 | PN ---
Subjective Date of Service: 07/23/18 Interval History: Pt feels well. started experiencing numbness on medial aspect left biceps area. L arm overall less swollen but "hard to touch". Objective Active Medications: Acetaminophen (Tylenol Tab*) 650 mg PO Q4H PRN PRN Reason: FEVER/PAIN Ceftriaxone Sodium 1 gm/ (Sodium Chloride) 50 mls @ 200 mls/hr IVPB Q24H [facility] Last Admin: 07/22/18 22:27 Dose: Not Given Lactated Ringer's (Lactated Ringers 1000 Ml Bag*) 1,000 mls @ 125 mls/hr IV PER RATE [facility] Last Admin: 07/23/18 11:22 Dose: 125 mls/hr Ibuprofen (Motrin Tab*) 600 mg PO Q6H PRN PRN Reason: PAIN Last Admin: 07/23/18 07:48 Dose: 600 mg Morphine Sulfate (Morphine Vial*) 5 mg IV Q4H PRN PRN Reason: PAIN Last Admin: 07/23/18 09:48 Dose: 5 mg Oxycodone/Acetaminophen (Percocet 5/325 Tab*) 1 tab PO Q4H PRN PRN Reason: Pain Last Admin: 07/23/18 12:44 Dose: 1 tab Vital Signs - 8 hr 07/23/18 07/23/18 07/23/18 05:50 07:48 08:00 Temperature Pulse Rate Respiratory 18 18 16 Rate Blood Pressure (mmHg) O2 Sat by Pulse Oximetry 07/23/18 07/23/18 07/23/18 08:09 09:48 10:09 Temperature 98.4 F Pulse Rate 82 Respiratory 16 16 16 Rate Blood Pressure 159/67 (mmHg) O2 Sat by Pulse 99 Oximetry 07/23/18 07/23/18 12:44 12:46 Temperature Pulse Rate Respiratory 18 18 Rate Blood Pressure (mmHg) O2 Sat by Pulse Oximetry Oxygen Devices in Use Now: None Appearance: 33 yo M in NAD, AAOx3 Eyes: No Scleral Icterus, PERRLA Ears/Nose/Mouth/Throat: NL Teeth, Lips, Gums, Mucous Membranes Moist Neck: NL Appearance and Movements; NL JVP, Trachea Midline Respiratory: Symmetrical Chest Expansion and Respiratory Effort, Clear to Auscultation Cardiovascular: NL Sounds; No Murmurs; No JVD, RRR Abdominal: NL Sounds; No Tenderness; No Distention Lymphatic: No Cervical Adenopathy Extremities: No Clubbing, Cyanosis, - - left arm edema improved, erythema improved. left biceps with questinalble fluctulation, dense to touch, decreased sensationalong tne medial aspect of proximal arm. R foot in post op dressings not removed. 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 Will need to be placed on Suboxone at d/c (3) Left arm cellulitis Comment: Skin improving, but bicepss are appears more dense D/w Dr. Macedo will get MRI to r/o fascitis (4) Superficial thrombophlebitis Comment: left arm cont NSAIDS and cold packs (5) Coagulopathy Comment: likely due to h/o Hep C. (6) DVT prophylaxis Comment: HSQ Status and Disposition: inpatient
--- NOTE | 2018-07-23 13:38 | CONS ---
CONSULTATION REPORT: DATE OF CONSULT: 07/23/18 REQUESTING PHYSICIAN: Dr. Lucio. CONSULTING SERVICE: Infectious Disease. REASON FOR CONSULTATION: Right foot abscess. IMPRESSION: 1. Right dorsal foot abscess due to group A Streptococcus involving the extensor hallucis longus tendon and tibialis anterior tendon status post incision and debridement. 2. Left arm cellulitis and thrombophlebitis with improvement in erythema but now with numbness over the triceps and more induration without crepitus over the biceps. A question of component of fasciitis, though I do not think it is a necrotizing fasciitis and given that he has been here for a day and a half and is hemodynamically stable and has not had rapid progression. 3. Injection drug use in brief remission. 4. Hepatitis C positive. RECOMMENDATIONS: 1. Continue ceftriaxone and add clindamycin 600 mg every 8 hours even though the isolate is resistant it likely will decrease toxin production by group A Strep. 2. MRI with contrast left upper arm. HISTORY OF PRESENT ILLNESS: This is a 33-year-old man with injection drug use and has been in the [facility] nursing home, brought in with right foot pain and swelling, found to have an abscess and then had left upper arm swelling and pain, found to have cellulitis and thrombophlebitis. He had an incision and debridement of the right foot, which he tolerated well. 4/4 blood culture bottles are growing group A Streptococcus which is sensitive to ceftriaxone, ampicillin, and vancomycin; resistant to tetracycline and clindamycin. He has not had an infection like this in the past. He does have a diagnosis of hepatitis C, has not had treatment for that in the past. Overall, he is feeling better today than he has in the last 2 to 3 days. PAST MEDICAL HISTORY: 1. Injection drug use, in brief remission. 2. Hepatitis C. MEDICATIONS: 1. Tylenol. 2. Ibuprofen. 3. Oxycodone as needed. 4. Ceftriaxone 1 g a day. 5. Zosyn. ALLERGIES: No known drug allergies. FAMILY HISTORY: No recurrent infections. SOCIAL HISTORY: He is at [facility] currently. [place] REVIEW OF SYSTEMS: All negative except as noted above in the history of present illness. PHYSICAL EXAM: Vital Signs: Temperature 37, heart rate 80, respiratory rate 16 , blood pressure 160/70, oxygen saturation 99% on room air. In general, he is awake, not in distress. Neurologic: He is oriented x3. Follows all commands. HEENT: There is no conjunctival hemorrhage. He is missing some teeth. Neck is supple without mass. Heart: Regular rate and rhythm without murmurs, rubs, or gallops. Lungs are clear to auscultation bilaterally. Abdomen: Soft, nontender, and nondistended. There are bowel sounds present. Skin: There is no rash or splinter hemorrhage. Musculoskeletal: There is no spine tenderness to palpation. The right foot is wrapped. Left upper arm: There is diffuse edema without erythema. There is some violaceous change as well as some induration over the biceps without crepitus or fluctuance. He has normal range of motion of the left elbow. LABORATORY DATA: White blood cell count 16, hemoglobin 11, platelets 363,000. Creatinine is 0.7. Please see impressions and recommendations outlined above. Thank you for asking me to see Mr. Barreto in consultation. [id number]/[facility] #: [id number] [facility] CENTER[facility]ob
[2018-07-23] MEDS: Heparin VIAL(*) 5000 UNITS/ML VIAL (FIVE THOUSAND) SUBCUT SCH ×2 (14:24→23:15)
[2018-07-23] MEDS ORDERED: Gadoteridol* (CONTRAST) 279.3 MG/ML 10 ML IV ONE (15:51)
[2018-07-23] MEDS: Polyethylene Glycol 3350* 17 GM PACKET PO SCH (16:40)
[2018-07-23] MEDS: cefTRIAXone(*) 1 GM in NS 0.9% 50 ML* 50 ML IVPB SCH (16:40)
[2018-07-24] MEDS: oxyCODONE/Acetamin 5/325 MG* TAB PO PRN ×4 (03:17→22:05)
[2018-07-24] MEDS: Morphine VIAL* 4 MG/ML VIAL (1 ml vial) IV PRN ×3 (04:39→16:49)
[2018-07-24 05:29] LABS: ABS Basophils 0 10^3/ul (0-0.2); ABS Eosinophils 0.1 10^3/ul (0-0.6); ABS Lymphocytes 1.9 10^3/ul (1.0-4.8); ABS Monocytes 0.8 10^3/ul (0-0.8); ABS Nucleated RBC 0 10^3/ul; Eosinophil % 0.5 %; Hematocrit 32 % (42-52); Hemoglobin 10.6 g/dl (14.0-18.0); Lymphocyte % 13.5 %; Mean Corpuscular HGB Conc 33 g/dl (31-36); Mean Corpuscular Hemoglobin 32 pg (27-31); Mean Corpuscular Volume 97 fL (80-94); Mean Platelet Volume 7.1 fL (7.4-10.4); Nucleated Red Blood Cells % 0; Platelet Count 385 10^3/ul (150-450); Red Cell Distribution Width 14 % (10.5-15); White Blood Count 13.8 10^3/ul (3.5-10.8)
[2018-07-24] MEDS: Heparin VIAL(*) 5000 UNITS/ML VIAL (FIVE THOUSAND) SUBCUT SCH ×3 (06:26→22:06)
[2018-07-24] MEDS: Ibuprofen TAB* 600 MG PO PRN ×2 (06:27→15:32)
[2018-07-24] MEDS: Polyethylene Glycol 3350* 17 GM PACKET PO SCH (07:55)
--- NOTE | 2018-07-24 11:05 | PN ---
Progress Note - Progress Note Date of Service: 07/24/18 SOAP: Subjective: CC: arm infection HPI: 33 year old man with right dorsal foot abscess s/p I&D and left proximal arm cellulitis and phlebitis; pain and swelling worse over bicep. No fever, rash, or diarrhea. Objective: Vital Signs Temp 36.8 C 07/24/18 07:40 Pulse 74 07/24/18 07:40 Resp 16 07/24/18 10:19 BP 142/64 07/24/18 07:40 Pulse Ox 99 07/24/18 07:40 Intake & Output 07/23/18 07/24/18 07/24/18 18:59 06:59 18:59 Intake Total 1696 1610 360 Output Total 1200 1325 Balance 496 285 360 Weight 180 lb Intake: IV Fluids 1226 LR 1226 IVPB 50 ABX - CEFTRIAXONE 50 Oral 420 1610 360 Output: Urine 1200 1325 Other: Date of Last Bowel 07/24/18 Movement # Bowel Movements 0 1 Estimated Stool Amount Large Gen:awake, no distress HEENT: no thrush Heart:RRR no murmur Lungs:CTA BL Abd:+BS NTND soft Skin: no rash MSK: Left proximal arm diffuse erythema; indurated no fluctuance, edema through elbow with decreased flexion Laboratory Results - last 24 hr 07/24/18 07/24/18 05:02 05:02 WBC 13.8 H RBC 3.30 L Hgb 10.6 L Hct 32 L MCV 97 H MCH 32 H MCHC 33 RDW 14 Plt Count 385 MPV 7.1 L Neut % (Auto) 79.8 Lymph % (Auto) 13.5 [place] % (Auto) 6.1 Eos % (Auto) 0.5 Baso % (Auto) 0.1 Absolute Neuts (auto) 11.0 H Absolute Lymphs (auto) 1.9 Absolute Monos (auto) 0.8 Absolute Eos (auto) 0.1 Absolute Basos (auto) 0 Absolute Nucleated RBC 0 Nucleated RBC % 0 Sodium 138 Potassium 3.7 Chloride 109 Carbon Dioxide 25 Anion Gap 4 BUN 9 Creatinine 0.53 L Est GFR ( Amer) 216.6 Est GFR (Non-Af Amer) 179.0 BUN/Creatinine Ratio 17.0 Glucose 117 H Calcium 7.8 L Assessment: 1. Grp A strep left foot abscess with bacteremia 2. Left arm cellulitis, myositis, fasciitis by MRI; now increased pain and edema 3. IVDU in brief remission Plan: 1. continue ceftriaxone, clindamycin. Will ask Dr Munoz to check his arm for ?I&D, add CK. Seen with Dr Lucio
--- NOTE | 2018-07-24 13:32 | PN ---
Subjective Date of Service: 07/24/18 Interval History: Pt c/o r arm pain worse than yesterday Objective Active Medications: Acetaminophen (Tylenol Tab*) 650 mg PO Q4H PRN PRN Reason: FEVER/PAIN Last Admin: 07/24/18 03:18 Dose: 650 mg Heparin Sodium (Porcine) (Heparin Vial(*)) 5,000 units SUBCUT Q8HR [facility] Last Admin: 07/24/18 06:26 Dose: 5,000 units Ceftriaxone Sodium 1 gm/ (Sodium Chloride) 50 mls @ 200 mls/hr IVPB Q24H [facility] Last Admin: 07/23/18 16:40 Dose: 200 mls/hr Ibuprofen (Motrin Tab*) 600 mg PO Q6H PRN PRN Reason: PAIN Last Admin: 07/24/18 06:27 Dose: 600 mg Morphine Sulfate (Morphine Vial*) 5 mg IV Q4H PRN PRN Reason: PAIN Last Admin: 07/24/18 11:12 Dose: 5 mg Oxycodone/Acetaminophen (Percocet 5/325 Tab*) 1 tab PO Q4H PRN PRN Reason: Pain Last Admin: 07/24/18 10:19 Dose: 1 tab Polyethylene Glycol/Electrolytes (Miralax*) 17 gm PO DAILY [facility] Last Admin: 07/24/18 07:55 Dose: Not Given Vital Signs - 8 hr 07/24/18 07/24/18 07/24/18 06:10 06:11 07:40 Temperature 98.2 F Pulse Rate 74 Respiratory 16 16 16 Rate Blood Pressure 142/64 (mmHg) O2 Sat by Pulse 99 Oximetry 07/24/18 07/24/18 07/24/18 07:51 10:19 11:12 Temperature Pulse Rate Respiratory 16 16 16 Rate Blood Pressure (mmHg) O2 Sat by Pulse Oximetry 07/24/18 12:22 Temperature Pulse Rate Respiratory 18 Rate Blood Pressure (mmHg) O2 Sat by Pulse Oximetry Oxygen Devices in Use Now: None Appearance: 33 yo M in nAD, aAOx3 Eyes: No Scleral Icterus, PERRLA Ears/Nose/Mouth/Throat: NL Teeth, Lips, Gums, Mucous Membranes Moist Neck: NL Appearance and Movements; NL JVP, Trachea Midline Respiratory: Symmetrical Chest Expansion and Respiratory Effort, Clear to Auscultation Cardiovascular: NL Sounds; No Murmurs; No JVD, RRR Abdominal: NL Sounds; No Tenderness; No Distention, No Hepatosplenomegaly Lymphatic: No Cervical Adenopathy, No Inguinal Adenopathy Extremities: No Clubbing, Cyanosis, - - L arm and forearm edema with dense area adjacent to antecubital fossa proximally in biceps and distally in forearm musculature, good peripheral pulses Skin: No Nodules or Sclerosis, - - left arm erythema improving Result Diagrams: 07/24/18 05:02 07/24/18 05:02 Microbiology and Other Data: Microbiology 07/21/18 15:15 Aerobic Blood Culture - Preliminary Blood Venous Strep Pyogenes (Grp A) Anaerobic Blood Culture - Preliminary Strep Pyogenes (Grp A) 07/21/18 15:15 Aerobic Blood Culture - Preliminary Blood Venous Strep Pyogenes (Grp A) Anaerobic Blood Culture - Preliminary Strep Pyogenes (Grp A) Assess/Plan/Problems-Billing Assessment: 33 yo IVDU(heroin), Hep C, [facility] noted to have R foot swelling and brought in to ED the same day with R foot abscess, L arm cellulitis and superficial thrombophlebitis - Patient Problems (1) Foot abscess, right Comment: with strep pyogenes bacteremia and sepsis Echo shows EF 60% and no obvious vegetation ID consulted: d/c Clinda, cont Ceftriaxone s/o I&D on 07/22/18 of R foot abscess (2) IV drug abuse Comment: Cont IV opioids for significant foot abscess. Will need to be placed on Suboxone at d/c (3) Left arm cellulitis Comment: Skin improving, but biceps appears more dense MRI shows possible fascitis. Place pt NPO and placed a call to ortho service to eval (4) Superficial thrombophlebitis Comment: left arm cont NSAIDS and cold packs (5) Coagulopathy Comment: likely due to h/o Hep C. (6) DVT prophylaxis Comment: HSQ Status and Disposition: inpatient
--- NOTE | 2018-07-24 15:26 | PN ---
Progress Note - Progress Note Date of Service: 07/24/18 SOAP: Subjective: []Patient seen at bedside with Dr. Iglesias. There has been concern of worsening of swelling around antecubital area , distal biceps and proximal forearm. Patient feels that there has been increase in pain diffusely at the distal biceps area medially and at the antecubiatal area. His foot is sore but improving. Objective: [] Vital Signs Temp 97.9 F 07/24/18 11:24 Pulse 75 07/24/18 11:24 Resp 18 07/24/18 12:22 BP 155/67 07/24/18 11:24 Pulse Ox 99 07/24/18 11:24 Intake & Output 07/23/18 07/24/18 07/24/18 18:59 06:59 18:59 Intake Total 1696 1610 360 Output Total 1200 1325 0 Balance 496 285 360 Weight 180 lb Intake: IV Fluids 1226 LR 1226 IVPB 50 ABX - CEFTRIAXONE 50 Oral 420 1610 360 Output: Urine 1200 1325 0 Other: Date of Last Bowel 07/24/18 Movement # Bowel Movements 0 1 Estimated Stool Amount Large Laboratory Results - last 24 hr 07/24/18 07/24/18 05:02 05:02 WBC 13.8 H RBC 3.30 L Hgb 10.6 L Hct 32 L MCV 97 H MCH 32 H MCHC 33 RDW 14 Plt Count 385 MPV 7.1 L Neut % (Auto) 79.8 Lymph % (Auto) 13.5 [place] % (Auto) 6.1 Eos % (Auto) 0.5 Baso % (Auto) 0.1 Absolute Neuts (auto) 11.0 H Absolute Lymphs (auto) 1.9 Absolute Monos (auto) 0.8 Absolute Eos (auto) 0.1 Absolute Basos (auto) 0 Absolute Nucleated RBC 0 Nucleated RBC % 0 Sodium 138 Potassium 3.7 Chloride 109 Carbon Dioxide 25 Anion Gap 4 BUN 9 Creatinine 0.53 L Est GFR ( Amer) 216.6 Est GFR (Non-Af Amer) 179.0 BUN/Creatinine Ratio 17.0 Glucose 117 H Calcium 7.8 L Total Creatine Kinase 27 Microbiology 07/22/18 18:30 Anaerobic Culture - Preliminary Wound - Right 07/22/18 18:30 Skin and Soft Tissue MRSA/MSSA (PCR - Final Foot Right Mrsa Negative S.aureus Negative Gram Stain - Final Wound Culture - Preliminary Strep Pyogenes (Grp A) 07/21/18 15:15 Aerobic Blood Culture - Final Blood Venous Strep Pyogenes (Grp A) Anaerobic Blood Culture - Final Strep Pyogenes (Grp A) 07/22/18 04:46 Urine Culture - Final Urine No Growth (<1,000 CFU/mL) 07/21/18 15:15 Aerobic Blood Culture - Final Blood Venous Strep Pyogenes (Grp A) Anaerobic Blood Culture - Final Strep Pyogenes (Grp A) dressings removed from the right foot overall edema and erythema much improved, moderate bloody drainage on dressings , no purulence packing pulled out ~1cm, new 4x4s and DEEJAY wrap applied Elbow region and forearm examined by Dr. Iglesias who felt this looked improved from yesterday- he is to review MRI again sensation and circulation intact to LUE Assessment: []IVDU s/p I&D right foot abscess POD #2 Cellulitis vs new abscess left dorsal forearm / antecubital area LUE Plan: []Continue IV antibiotics, Ceftriaxone 1 G q 24 hrs Will start nursing daily dressing changes pulling out ~1cm packing daily and redressing No surgical intervention deemed necessary at this point re left arm per Dr. Iglesias
[2018-07-24] MEDS: cefTRIAXone(*) 1 GM in NS 0.9% 50 ML* 50 ML IVPB SCH (16:49)
[2018-07-25] MEDS: Morphine VIAL* 4 MG/ML VIAL (1 ml vial) IV PRN ×4 (00:23→22:09)
[2018-07-25] MEDS: Heparin VIAL(*) 5000 UNITS/ML VIAL (FIVE THOUSAND) SUBCUT SCH ×3 (05:31→22:10)
[2018-07-25] MEDS: oxyCODONE/Acetamin 5/325 MG* TAB PO PRN ×4 (05:31→19:38)
[2018-07-25 05:58] LABS: Hematocrit 38 % (42-52); Hemoglobin 12.8 g/dl (14.0-18.0); Mean Corpuscular HGB Conc 34 g/dl (31-36); Mean Corpuscular Hemoglobin 33 pg (27-31); Mean Corpuscular Volume 97 fL (80-94); Mean Platelet Volume 6.8 fL (7.4-10.4); Platelet Count 576 10^3/ul (150-450); Red Blood Count 3.94 10^6/ul (4.00-5.40); Red Cell Distribution Width 14 % (10.5-15); White Blood Count 14.3 10^3/ul (3.5-10.8)
[2018-07-25 06:18] LABS: EGFR Non-African American 149.4 (>60)
[2018-07-25] MEDS: Ibuprofen TAB* 600 MG PO PRN ×2 (07:45→13:43)
[2018-07-25 08:32] LABS: ABS Basophils 0 10^3/ul (0-0.2); ABS Eosinophils 0.4 10^3/ul (0-0.6); ABS Lymphocytes 1.8 10^3/ul (1.0-4.8); ABS Monocytes 1.1 10^3/ul (0-0.8); ABS Neutrophils 11.1 10^3/ul (1.5-7.7); ABS Nucleated RBC 0 10^3/ul; Eosinophil % 2.7 %; Lymphocyte % 12.6 %; Nucleated Red Blood Cells % 0.1
[2018-07-25 08:36] LABS: Monocytes % 6 %
[2018-07-25 08:39] LABS: ABS Neutrophils 10.4 10^3/ul (1.5-7.7)
[2018-07-25] MEDS: Polyethylene Glycol 3350* 17 GM PACKET PO SCH (09:28)
[2018-07-25] MEDS: Clindamycin 600 MG IVPREMIX(* 600 MG/50 ML SDV IV SCH ×2 (09:34→17:01)
--- NOTE | 2018-07-25 11:58 | PN ---
Progress Note - Progress Note Date of Service: 07/25/18 SOAP: Subjective: Pt seen at bedside. Complains of pain left arm, well controlled with pain meds. Denies CP, SOB, F/C. Vital Signs: Temp Pulse Resp BP Pulse Ox 99.9 F 94 18 143/82 95 07/25/18 07:34 07/25/18 07:34 07/25/18 09:45 07/25/18 07:34 07/25/18 07:57 Laboratory Last Values WBC 14.3 10^3/ul (3.5-10.8) H 07/25/18 05:44 RBC 3.94 10^6/ul (4.00-5.40) L 07/25/18 05:44 Hgb 12.8 g/dl (14.0-18.0) L 07/25/18 05:44 Hct 38 % (42-52) L 07/25/18 05:44 MCV 97 fL (80-94) H 07/25/18 05:44 MCH 33 pg (27-31) H 07/25/18 05:44 MCHC 34 g/dl (31-36) 07/25/18 05:44 RDW 14 % (10.5-15) 07/25/18 05:44 Plt Count 576 10^3/ul (150-450) H D 07/25/18 05:44 MPV 6.8 fL (7.4-10.4) L 07/25/18 05:44 Neut % (Auto) 77.0 % 07/25/18 05:44 Lymph % (Auto) 12.6 % 07/25/18 05:44 Carbon % (Auto) 7.4 % 07/25/18 05:44 Eos % (Auto) 2.7 % 07/25/18 05:44 Baso % (Auto) 0.3 % 07/25/18 05:44 Absolute Neuts (auto) 11.1 10^3/ul (1.5-7.7) H 07/25/18 05:44 Absolute Lymphs (auto) 1.8 10^3/ul (1.0-4.8) 07/25/18 05:44 Absolute Monos (auto) 1.1 10^3/ul (0-0.8) H 07/25/18 05:44 Absolute Eos (auto) 0.4 10^3/ul (0-0.6) 07/25/18 05:44 Absolute Basos (auto) 0 10^3/ul (0-0.2) 07/25/18 05:44 Absolute Nucleated RBC 0 10^3/ul 07/25/18 05:44 Immature Gran % 2 % (0-9) 07/25/18 05:44 Neutrophils % 71 % 07/25/18 05:44 Band Neutrophils % 1 % (0-8) 07/25/18 05:44 Lymphocytes % 19 % 07/25/18 05:44 Monocytes % 6 % 07/25/18 05:44 Eosinophils % 2 % 07/25/18 05:44 Myelocytes % 1 % (0-1) 07/25/18 05:44 Nucleated RBC % 0.1 07/25/18 05:44 Abs Neuts (Manual) 10.4 10^3/ul (1.5-7.7) H 07/25/18 05:44 Abs Lymphs (Manual) 2.7 10^3/ul (1.0-4.8) 07/25/18 05:44 Abs Monocytes (Manual) 0.9 10^3/ul (0-0.8) H 07/25/18 05:44 Absolute Eos (Manual) 0.3 10^3/ul (0-0.6) 07/25/18 05:44 Nucleated RBCs/100 WBC 1 (0-0) H 07/25/18 05:44 Normal RBC Morphology Normal (Normal) 07/25/18 05:44 INR (Anticoag Therapy) 1.56 (0.77-1.02) H 07/22/18 10:52 APTT 28.5 seconds (26.0-36.3) 07/21/18 15:15 Sodium 133 mmol/L (135-145) L 07/25/18 05:44 Potassium 4.0 mmol/L (3.5-5.0) 07/25/18 05:44 Chloride 100 mmol/L (101-111) L 07/25/18 05:44 Carbon Dioxide 24 mmol/L (22-32) 07/25/18 05:44 Anion Gap 9 mmol/L (2-11) 07/25/18 05:44 BUN 10 mg/dL (6-24) 07/25/18 05:44 Creatinine 0.62 mg/dL (0.67-1.17) L 07/25/18 05:44 Est GFR ( Amer) 180.8 (>60) 07/25/18 05:44 Est GFR (Non-Af Amer) 149.4 (>60) 07/25/18 05:44 BUN/Creatinine Ratio 16.1 (8-20) 07/25/18 05:44 Glucose 101 mg/dL (70-100) H 07/25/18 05:44 Lactic Acid 0.7 mmol/L (0.5-2.0) 07/21/18 18:24 Calcium 8.2 mg/dL (8.6-10.3) L 07/25/18 05:44 Magnesium 2.3 mg/dL (1.9-2.7) 07/23/18 05:35 Total Bilirubin 0.60 mg/dL (0.2-1.0) 07/21/18 15:15 AST 18 U/L (13-39) 07/21/18 15:15 ALT 31 U/L (7-52) 07/21/18 15:15 Alkaline Phosphatase 71 U/L (34-104) 07/21/18 15:15 Total Creatine Kinase 27 U/L (10-223) 07/24/18 05:02 Troponin I 0.03 ng/mL (<0.04) 07/21/18 15:15 Total Protein 7.2 g/dL (6.4-8.9) 07/21/18 15:15 Albumin 3.6 g/dL (3.2-5.2) 07/21/18 15:15 Globulin 3.6 g/dL (2-4) 07/21/18 15:15 Albumin/Globulin Ratio 1.0 (1-3) 07/21/18 15:15 Cortisol 18.28 mcg/dL 07/21/18 15:15 Urine Color Yellow 07/22/18 04:46 Urine Appearance Cloudy 07/22/18 04:46 Urine pH 5.0 (5-9) 07/22/18 04:46 Ur Specific [place] 1.029 (1.010-1.030) 07/22/18 04:46 Urine Protein 1+(30 mg/dl) (Negative) A 07/22/18 04:46 Urine Ketones Negative (Negative) 07/22/18 04:46 Urine Blood Negative (Negative) 07/22/18 04:46 Urine Nitrate Negative (Negative) 07/22/18 04:46 Urine Bilirubin Negative (Negative) 07/22/18 04:46 Urine Urobilinogen Positive (Negative) A 07/22/18 04:46 Ur Leukocyte Esterase Trace (Negative) A 07/22/18 04:46 Urine WBC (Auto) 2+(11-20/hpf) (Absent) A 07/22/18 04:46 Urine RBC (Auto) Absent (Absent) 07/22/18 04:46 Ur Squamous Epith Cells Present (Absent) A 07/22/18 04:46 Urine Bacteria Absent (Absent) 07/22/18 04:46 Urine Glucose Negative (Negative) 07/22/18 04:46 Objective: A&Ox3, NAD Left upper extremity - No pain with PROM, Swelling anterior elbow noted, compartments soft, 2+ radial pulses, Sensation intact to light touch distally. Right foot - Dressing C/D/I, Sensation intact to light touch distally, good cap refill Assessment: 33 yo male s/p right foot I&D POD #3 Plan: Wound care Right foot Continue IV Abx Warm compresses to LUE
[2018-07-25] MEDS: cefTRIAXone(*) 1 GM in NS 0.9% 50 ML* 50 ML IVPB SCH (16:31)
--- NOTE | 2018-07-25 16:49 | PN ---
Subjective Date of Service: 07/25/18 Interval History: Tmax 99.9, wbc up 14.3 from 13.8 Clindamycin 600mg q8 started. Pain improved 5/10 now from 8/10 yesterday in left arm. Gets throbbing in right foot if standing. States has not seen Lamonte Mancini his listed PCP in many years. Objective Active Medications: Acetaminophen (Tylenol Tab*) 650 mg PO Q4H PRN PRN Reason: FEVER/PAIN Last Admin: 07/24/18 03:18 Dose: 650 mg Heparin Sodium (Porcine) (Heparin Vial(*)) 5,000 units SUBCUT Q8HR [facility] Last Admin: 07/25/18 13:44 Dose: 5,000 units Ceftriaxone Sodium 1 gm/ (Sodium Chloride) 50 mls @ 200 mls/hr IVPB Q24H [facility] Last Admin: 07/25/18 16:31 Dose: 200 mls/hr Clindamycin HCl/Dextrose (Cleocin 600 Mg Ivpremix(*) Sdv) 600 mg in 50 mls @ 100 mls/hr IV Q8H [facility] Last Admin: 07/25/18 09:34 Dose: 100 mls/hr Ibuprofen (Motrin Tab*) 600 mg PO Q6H PRN PRN Reason: PAIN Last Admin: 07/25/18 13:43 Dose: 600 mg Morphine Sulfate (Morphine Vial*) 4 mg IV Q4H PRN PRN Reason: PAIN - MILD Last Admin: 07/25/18 14:42 Dose: 4 mg Oxycodone/Acetaminophen (Percocet 5/325 Tab*) 1 tab PO Q4H PRN PRN Reason: Pain Last Admin: 07/25/18 13:43 Dose: 1 tab Polyethylene Glycol/Electrolytes (Miralax*) 17 gm PO DAILY [facility] Last Admin: 07/25/18 09:28 Dose: Not Given Vital Signs - 8 hr 07/25/18 07/25/18 07/25/18 09:34 09:45 11:41 Temperature 98.3 F Pulse Rate 83 Respiratory 18 18 16 Rate Blood Pressure 116/64 (mmHg) O2 Sat by Pulse 97 Oximetry 07/25/18 07/25/18 07/25/18 12:11 13:43 14:42 Temperature Pulse Rate Respiratory 16 18 18 Rate Blood Pressure (mmHg) O2 Sat by Pulse Oximetry 07/25/18 07/25/18 15:22 15:35 Temperature 98.2 F Pulse Rate 68 Respiratory 18 18 Rate Blood Pressure 119/63 (mmHg) O2 Sat by Pulse 97 Oximetry Oxygen Devices in Use Now: None Appearance: NAD Eyes: No Scleral Icterus, PERRLA Ears/Nose/Mouth/Throat: NL Teeth, Lips, Gums Neck: NL Appearance and Movements; NL JVP Respiratory: Symmetrical Chest Expansion and Respiratory Effort, Clear to Auscultation Cardiovascular: NL Sounds; No Murmurs; No JVD, RRR Abdominal: NL Sounds; No Tenderness; No Distention, No Hepatosplenomegaly Extremities: - - right foot wrapped in DEEJAY wrap without drainage. left antecubital fossa, distal bicep and proximal forearm are warm, swollen, with small patches of erythema. Slightly tender Neurological: Alert and Oriented x 3, NL Sensation, NL Muscle Strength and Tone Result Diagrams: 07/25/18 05:44 07/25/18 05:44 Additional Lab and Data: Laboratory Results - last 24 hr 07/25/18 07/25/18 05:44 05:44 WBC 14.3 H RBC 3.94 L Hgb 12.8 L Hct 38 L MCV 97 H MCH 33 H MCHC 34 RDW 14 Plt Count 576 H D MPV 6.8 L Neut % (Auto) 77.0 Lymph % (Auto) 12.6 [place] % (Auto) 7.4 Eos % (Auto) 2.7 Baso % (Auto) 0.3 Absolute Neuts (auto) 11.1 H Absolute Lymphs (auto) 1.8 Absolute Monos (auto) 1.1 H Absolute Eos (auto) 0.4 Absolute Basos (auto) 0 Absolute Nucleated RBC 0 Immature Gran % 2 Neutrophils % 71 Band Neutrophils % 1 Lymphocytes % 19 Monocytes % 6 Eosinophils % 2 Myelocytes % 1 Nucleated RBC % 0.1 Abs Neuts (Manual) 10.4 H Abs Lymphs (Manual) 2.7 Abs Monocytes (Manual) 0.9 H Absolute Eos (Manual) 0.3 Nucleated RBCs/100 WBC 1 H Normal RBC Morphology Normal Sodium 133 L Potassium 4.0 Chloride 100 L Carbon Dioxide 24 Anion Gap 9 BUN 10 Creatinine 0.62 L Est GFR ( Amer) 180.8 Est GFR (Non-Af Amer) 149.4 BUN/Creatinine Ratio 16.1 Glucose 101 H Calcium 8.2 L Microbiology and Other Data: Microbiology 07/22/18 18:30 Wound - Right Anaerobic Culture - Preliminary 07/22/18 18:30 Foot Right Skin and Soft Tissue MRSA/MSSA (PCR - Final Mrsa Negative S.aureus Negative 07/22/18 18:30 Foot Right Gram Stain - Final 07/22/18 18:30 Foot Right Wound Culture - Final Strep Pyogenes (Grp A) 07/21/18 15:15 Blood Venous Aerobic Blood Culture - Final Strep Pyogenes (Grp A) 07/21/18 15:15 Blood Venous Anaerobic Blood Culture - Final Strep Pyogenes (Grp A) 07/22/18 04:46 Urine Urine Culture - Final No Growth (<1,000 CFU/mL) 07/21/18 15:15 Blood Venous Aerobic Blood Culture - Final Strep Pyogenes (Grp A) 07/21/18 15:15 Blood Venous Anaerobic Blood Culture - Final Strep Pyogenes (Grp A) Assess/Plan/Problems-Billing Assessment: 33 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 Infective Tenosynovitis of Extensor Hallucis Longus. Group A Strep Pyogenes 3/4 blood cultures. On CFTX and now adding Clinda for antitoxin effect. s/p I&D 07/23/18. I&D and ortho on board. - Patient Problems (1) Foot abscess, right Current Visit: Yes Status: Acute Code(s): L02.611 - CUTANEOUS ABSCESS OF RIGHT FOOT SNOMED Code(s): 516436356 Comment: with strep pyogenes bacteremia and sepsis Echo shows EF 60% and no obvious vegetation appreciate ID recs cont Ceftriaxone restart clindamycin (got 1 previous dose) 600mg q8 for anti toxin effect s/o I&D on 07/22/18 of R foot abscess (2) Left arm cellulitis Current Visit: Yes Status: Acute Code(s): L03.114 - CELLULITIS OF LEFT UPPER LIMB SNOMED Code(s): 418236863 Comment: Pain improving. MRI shows possible fascitis. appreciate ortho recs. continue cftx, add back clindamycin for anti-toxin effect. (3) Bacteremia due to group B Streptococcus Current Visit: Yes Status: Acute Code(s): R78.81 - BACTEREMIA SNOMED Code( s): 285438107680 Comment: / vials on admission. f/u repeat BCx drawn 07/25 (4) Superficial thrombophlebitis Current Visit: Yes Status: Acute Code(s): I80.9 - PHLEBITIS AND THROMBOPHLEBITIS OF UNSPECIFIED SITE SNOMED Code(s): 6481600 Comment: left arm cont NSAIDS and cold packs (5) IV drug abuse Current Visit: No Status: Acute Code(s): F19.10 - OTHER PSYCHOACTIVE SUBSTANCE ABUSE, UNCOMPLICATED SNOMED Code(s): 050087992 Comment: Cont IV opioids for significant foot abscess. Will need to be placed on Suboxone at d/c (6) Coagulopathy Current Visit: Yes Status: Acute Comment: thought secondary to Hepatitis C. - LFTs otherwise wnl. consider mixing study or other etiology. (7) DVT prophylaxis Current Visit: Yes Status: Acute Code(s): PVC0115 - SNOMED Code(s): 401703744 Comment: HSQ (8) Hepatitis C Current Visit: Yes Status: Acute Comment: had high reactivity 06/09/17 and VL 6700 07/30/17 will repeat VL and will get genotype test likely not candidate currently for antiviral therapy given continued IVDU. (9) Sepsis Current Visit: Yes Status: Acute Comment: still with leuokocytosis and fevers. plan as above. Status and Disposition: medicine inpatient
[2018-07-26] MEDS: Clindamycin 600 MG IVPREMIX(* 600 MG/50 ML SDV IV SCH ×3 (01:54→17:06)
[2018-07-26] MEDS: Morphine VIAL* 4 MG/ML VIAL (1 ml vial) IV PRN ×5 (02:28→19:30)
[2018-07-26 05:57] LABS: Hematocrit 39 % (42-52); Hemoglobin 12.9 g/dl (14.0-18.0); Mean Corpuscular HGB Conc 33 g/dl (31-36); Mean Corpuscular Hemoglobin 32 pg (27-31); Mean Corpuscular Volume 97 fL (80-94); Mean Platelet Volume 6.7 fL (7.4-10.4); Platelet Count 675 10^3/ul (150-450); Red Blood Count 4.01 10^6/ul (4.00-5.40); Red Cell Distribution Width 14 % (10.5-15); White Blood Count 14.3 10^3/ul (3.5-10.8)
[2018-07-26] MEDS: Heparin VIAL(*) 5000 UNITS/ML VIAL (FIVE THOUSAND) SUBCUT SCH ×3 (06:27→22:11)
[2018-07-26] MEDS: Ibuprofen TAB* 600 MG PO PRN ×3 (07:11→19:29)
[2018-07-26 08:08] LABS: ABS Basophils 0.1 10^3/ul (0-0.2); ABS Eosinophils 0.4 10^3/ul (0-0.6); ABS Monocytes 0.7 10^3/ul (0-0.8); ABS Neutrophils 11.1 10^3/ul (1.5-7.7); ABS Nucleated RBC 0 10^3/ul; Eosinophil % 2.7 %; Lymphocyte % 14.1 %; Nucleated Red Blood Cells % 0
[2018-07-26 08:15] LABS: Monocytes % 8 %
[2018-07-26 08:16] LABS: ABS Neutrophils 11.4 10^3/ul (1.5-7.7)
[2018-07-26] MEDS: Polyethylene Glycol 3350* 17 GM PACKET PO SCH (08:35)
[2018-07-26] MEDS: oxyCODONE/Acetamin 5/325 MG* TAB PO PRN ×4 (08:36→22:11)
--- NOTE | 2018-07-26 12:57 | PN ---
Progress Note - Progress Note Date of Service: 07/26/18 SOAP: Subjective: Pt seen at bedside. States he has less pain today especially in LUE. Denies CP, SOB. Vital Signs: Temp Pulse Resp BP Pulse Ox 98.1 F 79 18 108/63 95 07/26/18 11:12 07/26/18 11:12 07/26/18 12:16 07/26/18 11:12 07/26/18 11:12 Laboratory Last Values WBC 14.3 10^3/ul (3.5-10.8) H 07/26/18 05:27 RBC 4.01 10^6/ul (4.00-5.40) 07/26/18 05:27 Hgb 12.9 g/dl (14.0-18.0) L 07/26/18 05:27 Hct 39 % (42-52) L 07/26/18 05:27 MCV 97 fL (80-94) H 07/26/18 05:27 MCH 32 pg (27-31) H 07/26/18 05:27 MCHC 33 g/dl (31-36) 07/26/18 05:27 RDW 14 % (10.5-15) 07/26/18 05:27 Plt Count 675 10^3/ul (150-450) H D 07/26/18 05:27 MPV 6.7 fL (7.4-10.4) L 07/26/18 05:27 Neut % (Auto) 77.2 % 07/26/18 05:27 Lymph % (Auto) 14.1 % 07/26/18 05:27 [place] % (Auto) 5.2 % 07/26/18 05:27 Eos % (Auto) 2.7 % 07/26/18 05:27 Baso % (Auto) 0.8 % 07/26/18 05:27 Absolute Neuts (auto) 11.1 10^3/ul (1.5-7.7) H 07/26/18 05:27 Absolute Lymphs (auto) 2.0 10^3/ul (1.0-4.8) 07/26/18 05:27 Absolute Monos (auto) 0.7 10^3/ul (0-0.8) 07/26/18 05:27 Absolute Eos (auto) 0.4 10^3/ul (0-0.6) 07/26/18 05:27 Absolute Basos (auto) 0.1 10^3/ul (0-0.2) 07/26/18 05:27 Absolute Nucleated RBC 0 10^3/ul 07/26/18 05:27 Immature Gran % 11 % (0-9) H 07/26/18 05:27 Neutrophils % 69 % 07/26/18 05:27 Band Neutrophils % 4 % (0-8) 07/26/18 05:27 Lymphocytes % 10 % 07/26/18 05:27 Monocytes % 8 % 07/26/18 05:27 Eosinophils % 2 % 07/26/18 05:27 Metamyelocytes % 2 % (0-2) 07/26/18 05:27 Myelocytes % 5 % (0-1) H 07/26/18 05:27 Nucleated RBC % 0 07/26/18 05:27 Abs Neuts (Manual) 11.4 10^3/ul (1.5-7.7) H 07/26/18 05:27 Abs Lymphs (Manual) 1.4 10^3/ul (1.0-4.8) 07/26/18 05:27 Abs Monocytes (Manual) 1.1 10^3/ul (0-0.8) H 07/26/18 05:27 Absolute Eos (Manual) 0.3 10^3/ul (0-0.6) 07/26/18 05:27 Nucleated RBCs/100 WBC 1 (0-0) H 07/25/18 05:44 Normal RBC Morphology Normal (Normal) 07/26/18 05:27 INR (Anticoag Therapy) 1.56 (0.77-1.02) H 07/22/18 10:52 APTT 28.5 seconds (26.0-36.3) 07/21/18 15:15 Sodium 133 mmol/L (135-145) L 07/25/18 05:44 Potassium 4.0 mmol/L (3.5-5.0) 07/25/18 05:44 Chloride 100 mmol/L (101-111) L 07/25/18 05:44 Carbon Dioxide 24 mmol/L (22-32) 07/25/18 05:44 Anion Gap 9 mmol/L (2-11) 07/25/18 05:44 BUN 10 mg/dL (6-24) 07/25/18 05:44 Creatinine 0.62 mg/dL (0.67-1.17) L 07/25/18 05:44 Est GFR ( Amer) 180.8 (>60) 07/25/18 05:44 Est GFR (Non-Af Amer) 149.4 (>60) 07/25/18 05:44 BUN/Creatinine Ratio 16.1 (8-20) 07/25/18 05:44 Glucose 101 mg/dL (70-100) H 07/25/18 05:44 Lactic Acid 0.7 mmol/L (0.5-2.0) 07/21/18 18:24 Calcium 8.2 mg/dL (8.6-10.3) L 07/25/18 05:44 Magnesium 2.3 mg/dL (1.9-2.7) 07/23/18 05:35 Total Bilirubin 0.60 mg/dL (0.2-1.0) 07/21/18 15:15 AST 18 U/L (13-39) 07/21/18 15:15 ALT 31 U/L (7-52) 07/21/18 15:15 Alkaline Phosphatase 71 U/L (34-104) 07/21/18 15:15 Total Creatine Kinase 27 U/L (10-223) 07/24/18 05:02 Troponin I 0.03 ng/mL (<0.04) 07/21/18 15:15 C-Reactive Protein 58.99 mg/L (<8.01) H 07/26/18 08:53 Total Protein 7.2 g/dL (6.4-8.9) 07/21/18 15:15 Albumin 3.6 g/dL (3.2-5.2) 07/21/18 15:15 Globulin 3.6 g/dL (2-4) 07/21/18 15:15 Albumin/Globulin Ratio 1.0 (1-3) 07/21/18 15:15 Cortisol 18.28 mcg/dL 07/21/18 15:15 Urine Color Yellow 07/22/18 04:46 Urine Appearance Cloudy 07/22/18 04:46 Urine pH 5.0 (5-9) 07/22/18 04:46 Ur Specific [place] 1.029 (1.010-1.030) 07/22/18 04:46 Urine Protein 1+(30 mg/dl) (Negative) A 07/22/18 04:46 Urine Ketones Negative (Negative) 07/22/18 04:46 Urine Blood Negative (Negative) 07/22/18 04:46 Urine Nitrate Negative (Negative) 07/22/18 04:46 Urine Bilirubin Negative (Negative) 07/22/18 04:46 Urine Urobilinogen Positive (Negative) A 07/22/18 04:46 Ur Leukocyte Esterase Trace (Negative) A 07/22/18 04:46 Urine WBC (Auto) 2+(11-20/hpf) (Absent) A 07/22/18 04:46 Urine RBC (Auto) Absent (Absent) 07/22/18 04:46 Ur Squamous Epith Cells Present (Absent) A 07/22/18 04:46 Urine Bacteria Absent (Absent) 07/22/18 04:46 Urine Glucose Negative (Negative) 07/22/18 04:46 Objective: A&Ox3, NAD Right foot - Dressing changed. Packing intact and advanced. Serous drainage. No signs of infection. NVI Left UE - No pain with PROM of elbow, swelling and induration anterior elbow Assessment: 33 yo male s/p right foot I&D POD #4 Plan: Wound care right foot warm compresses left UE IV abx
--- NOTE | 2018-07-26 15:56 | PN ---
Subjective Date of Service: 07/26/18 Interval History: Pain in left arm improved. Showered and had a lot of throbbing in right foot. Afebrile WBC 14.3 unchanged. repeat BCx [id number] Objective Active Medications: Acetaminophen (Tylenol Tab*) 650 mg PO Q4H PRN PRN Reason: FEVER/PAIN Last Admin: 07/24/18 03:18 Dose: 650 mg Heparin Sodium (Porcine) (Heparin Vial(*)) 5,000 units SUBCUT Q8HR [facility] Last Admin: 07/26/18 14:03 Dose: 5,000 units Ceftriaxone Sodium 1 gm/ (Sodium Chloride) 50 mls @ 200 mls/hr IVPB Q24H [facility] Last Admin: 07/25/18 16:31 Dose: 200 mls/hr Clindamycin HCl/Dextrose (Cleocin 600 Mg Ivpremix(*) Sdv) 600 mg in 50 mls @ 100 mls/hr IV Q8H [facility] Last Admin: 07/26/18 08:37 Dose: 100 mls/hr Ibuprofen (Motrin Tab*) 600 mg PO Q6H PRN PRN Reason: PAIN Last Admin: 07/26/18 13:02 Dose: 600 mg Morphine Sulfate (Morphine Vial*) 4 mg IV Q4H PRN PRN Reason: PAIN - MILD Last Admin: 07/26/18 14:57 Dose: 4 mg Oxycodone/Acetaminophen (Percocet 5/325 Tab*) 1 tab PO Q4H PRN PRN Reason: Pain Last Admin: 07/26/18 13:02 Dose: 1 tab Polyethylene Glycol/Electrolytes (Miralax*) 17 gm PO DAILY [facility] Last Admin: 07/26/18 08:35 Dose: Not Given Vital Signs - 8 hr 07/26/18 07/26/18 07/26/18 07:57 08:36 08:48 Temperature 98.7 F Pulse Rate 86 Respiratory 16 18 18 Rate Blood Pressure 122/62 (mmHg) O2 Sat by Pulse 96 Oximetry 07/26/18 07/26/18 07/26/18 10:12 11:01 11:12 Temperature 98.1 F Pulse Rate 79 Respiratory 16 18 16 Rate Blood Pressure 108/63 (mmHg) O2 Sat by Pulse 95 Oximetry 07/26/18 07/26/18 07/26/18 12:16 13:02 14:33 Temperature Pulse Rate Respiratory 18 18 18 Rate Blood Pressure (mmHg) O2 Sat by Pulse Oximetry 07/26/18 07/26/18 14:57 15:19 Temperature 98.1 F Pulse Rate 88 Respiratory 18 16 Rate Blood Pressure 112/60 (mmHg) O2 Sat by Pulse 98 Oximetry Oxygen Devices in Use Now: None Appearance: NAD Eyes: No Scleral Icterus, PERRLA Ears/Nose/Mouth/Throat: NL Teeth, Lips, Gums Neck: NL Appearance and Movements; NL JVP, Trachea Midline Respiratory: Symmetrical Chest Expansion and Respiratory Effort, Clear to Auscultation Cardiovascular: NL Sounds; No Murmurs; No JVD, RRR Abdominal: NL Sounds; No Tenderness; No Distention, No Hepatosplenomegaly Extremities: No Edema, - - right foot wrapped no strike thru. Skin: - - thrombophlebitis cord in left anticubital fossa, erythema improving, slight tenderness and indur Neurological: Alert and Oriented x 3, NL Sensation, NL Muscle Strength and Tone Nutrition: Taking PO's Result Diagrams: 07/26/18 05:27 07/25/18 05:44 Additional Lab and Data: Laboratory Results - last 24 hr 07/26/18 07/26/18 05:27 08:53 WBC 14.3 H RBC 4.01 Hgb 12.9 L Hct 39 L MCV 97 H MCH 32 H MCHC 33 RDW 14 Plt Count 675 H D MPV 6.7 L Neut % (Auto) 77.2 Lymph % (Auto) 14.1 [place] % (Auto) 5.2 Eos % (Auto) 2.7 Baso % (Auto) 0.8 Absolute Neuts (auto) 11.1 H Absolute Lymphs (auto) 2.0 Absolute Monos (auto) 0.7 Absolute Eos (auto) 0.4 Absolute Basos (auto) 0.1 Absolute Nucleated RBC 0 Immature Gran % 11 H Neutrophils % 69 Band Neutrophils % 4 Lymphocytes % 10 Monocytes % 8 Eosinophils % 2 Metamyelocytes % 2 Myelocytes % 5 H Nucleated RBC % 0 Abs Neuts (Manual) 11.4 H Abs Lymphs (Manual) 1.4 Abs Monocytes (Manual) 1.1 H Absolute Eos (Manual) 0.3 Normal RBC Morphology Normal C-Reactive Protein 58.99 H Microbiology and Other Data: Microbiology 07/22/18 18:30 Wound - Right Anaerobic Culture - Final 07/25/18 05:43 Blood Venous Aerobic Blood Culture - Preliminary No Growth Day 1 07/25/18 05:43 Blood Venous Anaerobic Blood Culture - Preliminary No Growth Day 1 07/25/18 05:50 Blood Venous Aerobic Blood Culture - Preliminary No Growth Day 1 07/25/18 05:50 Blood Venous Anaerobic Blood Culture - Preliminary No Growth Day 1 07/22/18 18:30 Foot Right Skin and Soft Tissue MRSA/MSSA (PCR - Final Mrsa Negative S.aureus Negative 07/22/18 18:30 Foot Right Gram Stain - Final 07/22/18 18:30 Foot Right Wound Culture - Final Strep Pyogenes (Grp A) 07/21/18 15:15 Blood Venous Aerobic Blood Culture - Final Strep Pyogenes (Grp A) 07/21/18 15:15 Blood Venous Anaerobic Blood Culture - Final Strep Pyogenes (Grp A) 07/22/18 04:46 Urine Urine Culture - Final No Growth (<1,000 CFU/mL) 07/21/18 15:15 Blood Venous Aerobic Blood Culture - Final Strep Pyogenes (Grp A) 07/21/18 15:15 Blood Venous Anaerobic Blood Culture - Final Strep Pyogenes (Grp A) Assess/Plan/Problems-Billing Assessment: 33 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 Infective Tenosynovitis of Extensor Hallucis Longus. Group A Strep Pyogenes 3/4 blood cultures. On CFTX and now improving on Clinda for antitoxin effect. s/p I&D 07/23/18. I&D and ortho on board. - Patient Problems (1) Foot abscess, right Current Visit: Yes Status: Acute Code(s): L02.611 - CUTANEOUS ABSCESS OF RIGHT FOOT SNOMED Code(s): 958353341 Comment: with strep pyogenes bacteremia and sepsis Echo shows EF 60% and no obvious vegetation appreciate ID recs cont Ceftriaxone continue clindamycin (got 1 previous dose) 600mg q8 for anti toxin effect. Seems to be improving on this. s/o I&D on 07/22/18 of R foot abscess (2) Left arm cellulitis Current Visit: Yes Status: Acute Code(s): L03.114 - CELLULITIS OF LEFT UPPER LIMB SNOMED Code(s): 410930007 Comment: Pain improving. MRI shows possible fascitis. appreciate ortho recs. continue cftx, continue clindamycin for anti-toxin effect. thrombophlebits cord present (3) Bacteremia due to group B Streptococcus Current Visit: Yes Status: Acute Code(s): R78.81 - BACTEREMIA SNOMED Code( s): 545703224566 Comment: 4/4 vials on admission. f/u repeat BCx drawn 07/25 NGTDx 1 day. (4) Superficial thrombophlebitis Current Visit: Yes Status: Acute Code(s): I80.9 - PHLEBITIS AND THROMBOPHLEBITIS OF UNSPECIFIED SITE SNOMED Code(s): 4014324 Comment: left arm cont NSAIDS and cold packs (5) IV drug abuse Current Visit: No Status: Acute Code(s): F19.10 - OTHER PSYCHOACTIVE SUBSTANCE ABUSE, UNCOMPLICATED SNOMED Code(s): 904925285 Comment: Cont IV opioids for significant foot abscess. Will need to be placed on Suboxone at d/c (6) Coagulopathy Current Visit: Yes Status: Acute Comment: thought secondary to Hepatitis C. - LFTs otherwise wnl. consider mixing study (7) DVT prophylaxis Current Visit: Yes Status: Acute Code(s): ATC1956 - SNOMED Code(s): 683318359 Comment: HSQ (8) Hepatitis C Current Visit: Yes Status: Acute Comment: had high reactivity 06/09/17 and VL 6700 07/30/17 repeat VL pending genotype test pending likely not candidate currently for antiviral therapy given continued IVDU. (9) Sepsis Current Visit: Yes Status: Acute Comment: still with leuokocytosis. resolved fevers. plan as above. Status and Disposition: medicine inpatient
[2018-07-26] MEDS: cefTRIAXone(*) 1 GM in NS 0.9% 50 ML* 50 ML IVPB SCH (16:03)
[2018-07-27] MEDS: Clindamycin 600 MG IVPREMIX(* 600 MG/50 ML SDV IV SCH ×3 (00:52→16:57)
[2018-07-27] MEDS: Morphine VIAL* 4 MG/ML VIAL (1 ml vial) IV PRN ×3 (01:07→17:40)
[2018-07-27] MEDS: Ibuprofen TAB* 600 MG PO PRN ×2 (05:44→21:41)
[2018-07-27] MEDS: oxyCODONE/Acetamin 5/325 MG* TAB PO PRN ×4 (05:44→21:42)
[2018-07-27] MEDS: Heparin VIAL(*) 5000 UNITS/ML VIAL (FIVE THOUSAND) SUBCUT SCH ×3 (05:44→21:43)
[2018-07-27 06:16] LABS: Hematocrit 37 % (42-52); Hemoglobin 12.6 g/dl (14.0-18.0); Mean Corpuscular HGB Conc 34 g/dl (31-36); Mean Corpuscular Hemoglobin 33 pg (27-31); Mean Corpuscular Volume 98 fL (80-94); Mean Platelet Volume 6.7 fL (7.4-10.4); Platelet Count 589 10^3/ul (150-450); Red Blood Count 3.83 10^6/ul (4.00-5.40); Red Cell Distribution Width 14 % (10.5-15); White Blood Count 11.4 10^3/ul (3.5-10.8)
[2018-07-27 07:21] LABS: Monocytes % 6 %
[2018-07-27 07:23] LABS: ABS Basophils 0.11 10^3/ul (0-0.2)
--- NOTE | 2018-07-27 08:38 | PN ---
Progress Note - Progress Note Date of Service: 07/27/18 SOAP: Subjective: CC: arm infection HPI: 33 year old man with right dorsal foot abscess s/p I&D and left proximal arm cellulitis and phlebitis. Left arm less swollen, elbow ROM improved. Right foot less painful. No fever, rash, or diarrhea. Some sweats. Objective: Vital Signs Temp 36.7 C 07/27/18 07:37 Pulse 88 07/27/18 07:37 Resp 18 07/27/18 07:44 BP 138/80 07/27/18 07:37 Pulse Ox 98 07/27/18 07:44 Intake & Output 07/26/18 07/27/18 07/27/18 18:59 06:59 18:59 Intake Total 1675 450 100 Output Total 500 475 600 Balance 1175 -25 -500 Intake: IV Fluids 60 LR 20 NS (0.9%) 40 IVPB 110 50 ABX - CEFTRIAXONE 110 ABX - CLINDAMYCIN 50 Medicated IV 55 Clindamycin 55 Oral 1450 400 100 Output: Urine 500 475 600 Gen:awake, no distress HEENT: no thrush Heart:RRR no murmur Lungs:CTA BL Abd:+BS NTND soft Skin: no rash MSK: Left proximal arm mild erythema, less edema and induration, elbow ROM intact Laboratory Results - last 24 hr 07/26/18 07/27/18 08:53 05:22 WBC 11.4 H RBC 3.83 L Hgb 12.6 L Hct 37 L MCV 98 H MCH 33 H MCHC 34 RDW 14 Plt Count 589 H D MPV 6.7 L Neut % (Auto) Not Reportable Lymph % (Auto) Not Reportable [place] % (Auto) Not Reportable Eos % (Auto) Not Reportable Baso % (Auto) Not Reportable Absolute Neuts (auto) Not Reportable Absolute Lymphs (auto) Not Reportable Absolute Monos (auto) Not Reportable Absolute Eos (auto) Not Reportable Absolute Basos (auto) Not Reportable Absolute Nucleated RBC Not Reportable Immature Gran % 10 H Neutrophils % 60 Lymphocytes % 20 Monocytes % 6 Eosinophils % 3 Basophils % 1 Metamyelocytes % 3 H Myelocytes % 7 H Nucleated RBC % Not Reportable Abs Neuts (Manual) 8.0 H Abs Lymphs (Manual) 2.3 Abs Monocytes (Manual) 0.68 Absolute Eos (Manual) 0.34 Abs Basophils (Manual) 0.11 Normal RBC Morphology Not Reportable Polychromasia 1+ C-Reactive Protein 58.99 H Assessment: 1. Grp A strep left foot abscess with bacteremia 2. Left arm cellulitis, myositis, fasciitis and phlebitis 3. IVDU in brief remission 4. HCV Plan: 1. continue ceftriaxone, DC clinda, amox 500 mg po tid to finish 14 day course. 2. I offered him fu for HCV when he has finished his service of time to the [facility]
[2018-07-27] MEDS: Polyethylene Glycol 3350* 17 GM PACKET PO SCH (08:51)
--- NOTE | 2018-07-27 14:48 | PN ---
Progress Note - Progress Note Date of Service: 07/27/18 SOAP: Subjective: []Patient seen and examined at bedside. He no longer has pain of his right foot , left arm pain and swelling is much improved. Denies feeling of fever, chills, CP, SOB, dizziness. He is mildly nauseous. Dressing was changed and packing advanced 1 cm by nursing today. Objective: []A&Ox3, NAD Right foot - Dressing CDI. Erythema and edema of the foot are improved from previous exams. F/E at MTPs and ankle intact, sensation intact to light touch distally, capillary refill less than two seconds distally Left UE - No pain with PROM of elbow. Erythema is resolved. Induration over biceps remains, nontender. Sensation intact to light touch throughout Assessment: 33 yo male s/p right foot I&D cultures show group A strep Left arm cellulitis, myositis, fasciits, phlebitis Plan: Wound care right foot- continue to advance packing 1 cm per day and apply dry sterile dressing warm compresses left UE, work with PT/OT for gentle ROM at elbow IV abx - continue ceftriaxone, stop clindamycin, add amoxicillin 500 mg po tid to complete 14 day course Vital Signs Temp 98.1 F 07/27/18 07:37 Pulse 88 07/27/18 07:37 Resp 18 07/27/18 14:20 BP 138/80 07/27/18 07:37 Pulse Ox 98 07/27/18 07:44 Intake & Output 07/26/18 07/27/18 07/27/18 18:59 06:59 18:59 Intake Total 1675 450 100 Output Total 500 475 900 Balance 1175 -25 -800 Intake: IV Fluids 60 LR 20 NS (0.9%) 40 IVPB 110 50 ABX - CEFTRIAXONE 110 ABX - CLINDAMYCIN 50 Medicated IV 55 Clindamycin 55 Oral 1450 400 100 Output: Urine 500 475 900 Laboratory Last Values WBC 11.4 10^3/ul (3.5-10.8) H 07/27/18 05:22 RBC 3.83 10^6/ul (4.00-5.40) L 07/27/18 05:22 Hgb 12.6 g/dl (14.0-18.0) L 07/27/18 05:22 Hct 37 % (42-52) L 07/27/18 05:22 MCV 98 fL (80-94) H 07/27/18 05:22 MCH 33 pg (27-31) H 07/27/18 05:22 MCHC 34 g/dl (31-36) 07/27/18 05:22 RDW 14 % (10.5-15) 07/27/18 05:22 Plt Count 589 10^3/ul (150-450) H D 07/27/18 05:22 MPV 6.7 fL (7.4-10.4) L 07/27/18 05:22 Neut % (Auto) Not Reportable 07/27/18 05:22 Lymph % (Auto) Not Reportable 07/27/18 05:22 [place] % (Auto) Not Reportable 07/27/18 05:22 Eos % (Auto) Not Reportable 07/27/18 05:22 Baso % (Auto) Not Reportable 07/27/18 05:22 Absolute Neuts (auto) Not Reportable 07/27/18 05:22 Absolute Lymphs (auto) Not Reportable 07/27/18 05:22 Absolute Monos (auto) Not Reportable 07/27/18 05:22 Absolute Eos (auto) Not Reportable 07/27/18 05:22 Absolute Basos (auto) Not Reportable 07/27/18 05:22 Absolute Nucleated RBC Not Reportable 07/27/18 05:22 Immature Gran % 10 % (0-9) H 07/27/18 05:22 Neutrophils % 60 % 07/27/18 05:22 Band Neutrophils % 4 % (0-8) 07/26/18 05:27 Lymphocytes % 20 % 07/27/18 05:22 Monocytes % 6 % 07/27/18 05:22 Eosinophils % 3 % 07/27/18 05:22 Basophils % 1 % 07/27/18 05:22 Metamyelocytes % 3 % (0-2) H 07/27/18 05:22 Myelocytes % 7 % (0-1) H 07/27/18 05:22 Nucleated RBC % Not Reportable 07/27/18 05:22 Abs Neuts (Manual) 8.0 10^3/ul (1.5-7.7) H 07/27/18 05:22 Abs Lymphs (Manual) 2.3 10^3/ul (1.0-4.8) 07/27/18 05:22 Abs Monocytes (Manual) 0.68 10^3/ul (0-0.8) 07/27/18 05:22 Absolute Eos (Manual) 0.34 10^3/ul (0-0.6) 07/27/18 05:22 Abs Basophils (Manual) 0.11 10^3/ul (0-0.2) 07/27/18 05:22 Nucleated RBCs/100 WBC 1 (0-0) H 07/25/18 05:44 Normal RBC Morphology Not Reportable 07/27/18 05:22 Polychromasia 1+ 07/27/18 05:22 INR (Anticoag Therapy) 1.56 (0.77-1.02) H 07/22/18 10:52 APTT 28.5 seconds (26.0-36.3) 07/21/18 15:15 Sodium 133 mmol/L (135-145) L 07/25/18 05:44 Potassium 4.0 mmol/L (3.5-5.0) 07/25/18 05:44 Chloride 100 mmol/L (101-111) L 07/25/18 05:44 Carbon Dioxide 24 mmol/L (22-32) 07/25/18 05:44 Anion Gap 9 mmol/L (2-11) 07/25/18 05:44 BUN 10 mg/dL (6-24) 07/25/18 05:44 Creatinine 0.62 mg/dL (0.67-1.17) L 07/25/18 05:44 Est GFR ( Amer) 180.8 (>60) 07/25/18 05:44 Est GFR (Non-Af Amer) 149.4 (>60) 07/25/18 05:44 BUN/Creatinine Ratio 16.1 (8-20) 07/25/18 05:44 Glucose 101 mg/dL (70-100) H 07/25/18 05:44 Lactic Acid 0.7 mmol/L (0.5-2.0) 07/21/18 18:24 Calcium 8.2 mg/dL (8.6-10.3) L 07/25/18 05:44 Magnesium 2.3 mg/dL (1.9-2.7) 07/23/18 05:35 Total Bilirubin 0.60 mg/dL (0.2-1.0) 07/21/18 15:15 AST 18 U/L (13-39) 07/21/18 15:15 ALT 31 U/L (7-52) 07/21/18 15:15 Alkaline Phosphatase 71 U/L (34-104) 07/21/18 15:15 Total Creatine Kinase 27 U/L (10-223) 07/24/18 05:02 Troponin I 0.03 ng/mL (<0.04) 07/21/18 15:15 C-Reactive Protein 58.99 mg/L (<8.01) H 07/26/18 08:53 Total Protein 7.2 g/dL (6.4-8.9) 07/21/18 15:15 Albumin 3.6 g/dL (3.2-5.2) 07/21/18 15:15 Globulin 3.6 g/dL (2-4) 07/21/18 15:15 Albumin/Globulin Ratio 1.0 (1-3) 07/21/18 15:15 Cortisol 18.28 mcg/dL 07/21/18 15:15 Urine Color Yellow 07/22/18 04:46 Urine Appearance Cloudy 07/22/18 04:46 Urine pH 5.0 (5-9) 07/22/18 04:46 Ur Specific [place] 1.029 (1.010-1.030) 07/22/18 04:46 Urine Protein 1+(30 mg/dl) (Negative) A 07/22/18 04:46 Urine Ketones Negative (Negative) 07/22/18 04:46 Urine Blood Negative (Negative) 07/22/18 04:46 Urine Nitrate Negative (Negative) 07/22/18 04:46 Urine Bilirubin Negative (Negative) 07/22/18 04:46 Urine Urobilinogen Positive (Negative) A 07/22/18 04:46 Ur Leukocyte Esterase Trace (Negative) A 07/22/18 04:46 Urine WBC (Auto) 2+(11-20/hpf) (Absent) A 07/22/18 04:46 Urine RBC (Auto) Absent (Absent) 07/22/18 04:46 Ur Squamous Epith Cells Present (Absent) A 07/22/18 04:46 Urine Bacteria Absent (Absent) 07/22/18 04:46 Urine Glucose Negative (Negative) 07/22/18 04:46
--- NOTE | 2018-07-27 15:04 | PN ---
Subjective Date of Service: 07/27/18 Interval History: Pt seen and examined. Meds and labs reviewed. CC: N/A ROS: Denied LUCAS/dizziness, F/C, N/V, CP, SOB, increased cough, sputum production , abd pain, diarrhea, constipation, dysuria, myalgias, arthralgias, throat pain , and new skin lesions. The rest of the 14 point ROS are unremarkable. PHYSICAL EXAM: GEN APPEARANCE: Awake, not in acute distress HEENT: NC/AT, PERRLA, moist oral mucosa, (-) throat erythema NECK: Soft, supple, (-) cervical LAD, (-)JVD HEART: S1S2 WNL, RRR, No RG, (+)4/6 murmur CHEST: CTA, BL, GAE, No W/R/R ABD: Soft, ND/NT, NABS 4x Q EXT: No C/C/E SKIN: Warm to touch PSYCH: No active psychosis, hallucinations, depression, SI/HI Objective Active Medications: Acetaminophen (Tylenol Tab*) 650 mg PO Q4H PRN PRN Reason: FEVER/PAIN Last Admin: 07/24/18 03:18 Dose: 650 mg Heparin Sodium (Porcine) (Heparin Vial(*)) 5,000 units SUBCUT Q8HR [facility] Last Admin: 07/27/18 13:00 Dose: 5,000 units Ceftriaxone Sodium 1 gm/ (Sodium Chloride) 50 mls @ 200 mls/hr IVPB Q24H [facility] Last Admin: 07/26/18 16:03 Dose: 200 mls/hr Clindamycin HCl/Dextrose (Cleocin 600 Mg Ivpremix(*) Sdv) 600 mg in 50 mls @ 100 mls/hr IV Q8H [facility] Last Admin: 07/27/18 08:51 Dose: 100 mls/hr Ibuprofen (Motrin Tab*) 600 mg PO Q6H PRN PRN Reason: PAIN Last Admin: 07/27/18 05:44 Dose: 600 mg Morphine Sulfate (Morphine Vial*) 4 mg IV Q4H PRN PRN Reason: PAIN - MILD Last Admin: 07/27/18 13:01 Dose: 4 mg Oxycodone/Acetaminophen (Percocet 5/325 Tab*) 1 tab PO Q4H PRN PRN Reason: Pain Last Admin: 07/27/18 09:53 Dose: 1 tab Polyethylene Glycol/Electrolytes (Miralax*) 17 gm PO DAILY [facility] Last Admin: 07/27/18 08:51 Dose: 17 gm Vital Signs - 8 hr 07/27/18 07/27/18 07/27/18 07:37 07:44 09:53 Temperature 98.1 F Pulse Rate 88 Respiratory 16 16 18 Rate Blood Pressure 138/80 (mmHg) O2 Sat by Pulse 98 98 Oximetry 07/27/18 07/27/18 13:01 14:20 Temperature Pulse Rate Respiratory 18 18 Rate Blood Pressure (mmHg) O2 Sat by Pulse Oximetry Oxygen Devices in Use Now: None Result Diagrams: 07/27/18 05:22 07/25/18 05:44 Additional Lab and Data: Laboratory Results - last 24 hr 07/26/18 07/26/18 05:27 08:53 WBC 14.3 H RBC 4.01 Hgb 12.9 L Hct 39 L MCV 97 H MCH 32 H MCHC 33 RDW 14 Plt Count 675 H D MPV 6.7 L Neut % (Auto) 77.2 Lymph % (Auto) 14.1 [place] % (Auto) 5.2 Eos % (Auto) 2.7 Baso % (Auto) 0.8 Absolute Neuts (auto) 11.1 H Absolute Lymphs (auto) 2.0 Absolute Monos (auto) 0.7 Absolute Eos (auto) 0.4 Absolute Basos (auto) 0.1 Absolute Nucleated RBC 0 Immature Gran % 11 H Neutrophils % 69 Band Neutrophils % 4 Lymphocytes % 10 Monocytes % 8 Eosinophils % 2 Metamyelocytes % 2 Myelocytes % 5 H Nucleated RBC % 0 Abs Neuts (Manual) 11.4 H Abs Lymphs (Manual) 1.4 Abs Monocytes (Manual) 1.1 H Absolute Eos (Manual) 0.3 Normal RBC Morphology Normal C-Reactive Protein 58.99 H Microbiology and Other Data: Microbiology 07/22/18 18:30 Wound - Right Anaerobic Culture - Final 07/25/18 05:43 Blood Venous Aerobic Blood Culture - Preliminary No Growth Day 1 07/25/18 05:43 Blood Venous Anaerobic Blood Culture - Preliminary No Growth Day 1 07/25/18 05:50 Blood Venous Aerobic Blood Culture - Preliminary No Growth Day 1 07/25/18 05:50 Blood Venous Anaerobic Blood Culture - Preliminary No Growth Day 1 07/22/18 18:30 Foot Right Skin and Soft Tissue MRSA/MSSA (PCR - Final Mrsa Negative S.aureus Negative 07/22/18 18:30 Foot Right Gram Stain - Final 07/22/18 18:30 Foot Right Wound Culture - Final Strep Pyogenes (Grp A) 07/21/18 15:15 Blood Venous Aerobic Blood Culture - Final Strep Pyogenes (Grp A) 07/21/18 15:15 Blood Venous Anaerobic Blood Culture - Final Strep Pyogenes (Grp A) 07/22/18 04:46 Urine Urine Culture - Final No Growth (<1,000 CFU/mL) 07/21/18 15:15 Blood Venous Aerobic Blood Culture - Final Strep Pyogenes (Grp A) 07/21/18 15:15 Blood Venous Anaerobic Blood Culture - Final Strep Pyogenes (Grp A) Assess/Plan/Problems-Billing Assessment: 33 yo IVDU(heroin), Hep C (Jul 2017), got in halfway on 07/21/18 noted to have R foot swelling and brought in to ED the same day with R foot abscess, L arm cellulitis and superficial thrombophlebitis. Infective Tenosynovitis of Extensor Hallucis Longus. Group A Strep Pyogenes 3/4 blood cultures. On CFTX and now improving on Clinda for antitoxin effect. s/p I&D 07/23/18. I&D and ortho on board. - Patient Problems (1) Foot abscess, right Current Visit: Yes Status: Acute Code(s): L02.611 - CUTANEOUS ABSCESS OF RIGHT FOOT SNOMED Code(s): 210623038 Comment: -With strep pyogenes bacteremia and sepsis -Echo shows EF 60% and no obvious vegetation -Cont Ceftriaxone; D/Cd Clindamycinkept on despite sensitivities for a few days to decrease bacterial toxin production -Can be D/Cd on amox 500 mg po tid to finish 14 day course. -s/o I&D on 07/22/18 of R foot abscess (2) Left arm cellulitis Current Visit: Yes Status: Acute Code(s): L03.114 - CELLULITIS OF LEFT UPPER LIMB SNOMED Code(s): 914127881 Comment: -Left arm cellulitis, myositis, fasciitis and phlebitis -Pain well-controlled -MRI shows possible fascitis. -appreciate ortho recs. -continue cftx, continue clindamycin for anti-toxin effect. -thrombophlebits cord present (3) Bacteremia due to group B Streptococcus Current Visit: Yes Status: Acute Code(s): R78.81 - BACTEREMIA SNOMED Code( s): 667043145363 Comment: -Repeat BCx drawn 07/25 (-) x2 days -Blood Cx 07/21: (+) S. pyogenes (4) Superficial thrombophlebitis Current Visit: Yes Status: Acute Code(s): I80.9 - PHLEBITIS AND THROMBOPHLEBITIS OF UNSPECIFIED SITE SNOMED Code(s): 7481570 Comment: left arm cont NSAIDS and cold packs (5) IV drug abuse Current Visit: No Status: Acute Code(s): F19.10 - OTHER PSYCHOACTIVE SUBSTANCE ABUSE, UNCOMPLICATED SNOMED Code(s): 967783669 Comment: -Cont IV opioids for significant foot abscess. -D/W crystal machining coordinator that pt will need to F/U as outpatient to a Suboxone program (6) Hepatitis C Current Visit: Yes Status: Acute Comment: -Had high reactivity 06/09/17 and VL 6700 07/30/17 -repeat VL pending -genotype test pending -Defer outpatient F/U with PCP and/or outpt ID and/or [employer] In[employer] to possibly initiate treatment in the future (7) Sepsis Current Visit: Yes Status: Acute Comment: -Resolved -Likely due to above (8) DVT prophylaxis Current Visit: Yes Status: Acute Code(s): ZCW0432 - SNOMED Code(s): 403794855 Comment: [id number] Status and Disposition: -Possible D/C in AM
--- NOTE | 2018-07-27 15:22 | PN ---
Hospitalist Progress Note Date of Service: 07/27/18 Medication Assisted Therapy consult. I was asked to meet this patient by Dr. Lucio for the possibility of initiating MAT. Tanner is a 33 yo male, here for cellulitis with wound complications. He has a history of opioid use disorder and dependence. He endorses a history of injection; currently, he denies significant cravings or withdrawals. He is appropriately receiving opiates for pain management following surgical intervention. He states he is under arrest for a probation violation and will be discharged to detention. He is interested in starting MAT once discharged, stating that he has done well on Suboxone 12 mg. He also has a positive Hep C screen; we discussed following up with [facility], or [facility] to receive treatment for Hep C upon release from detention. We discussed that he could and should receive treatment as soon as possible to reduce his risk for complications (reference: https://www.hcvguidelines.org/unique-populations/pwid ) and further spread of HCV, also briefly discussing clean needle programs available in the community. I gave him my contact information. We will be happy to follow up with him upon discharge and when released from detention or sooner if indicated.
[2018-07-27] MEDS: cefTRIAXone(*) 1 GM in NS 0.9% 50 ML* 50 ML IVPB SCH (16:24)
[2018-07-28] MEDS: Clindamycin 600 MG IVPREMIX(* 600 MG/50 ML SDV IV SCH ×2 (00:52→09:52)
[2018-07-28 05:16] LABS: Hematocrit 37 % (42-52); Hemoglobin 12.5 g/dl (14.0-18.0); Mean Corpuscular HGB Conc 34 g/dl (31-36); Mean Corpuscular Hemoglobin 33 pg (27-31); Mean Corpuscular Volume 96 fL (80-94); Mean Platelet Volume 6.3 fL (7.4-10.4); Platelet Count 673 10^3/ul (150-450); Red Blood Count 3.84 10^6/ul (4.00-5.40); Red Cell Distribution Width 14 % (10.5-15); White Blood Count 11.9 10^3/ul (3.5-10.8)
[2018-07-28 05:30] LABS: EGFR Non-African American 121.8 (>60)
[2018-07-28] MEDS: Ibuprofen TAB* 600 MG PO PRN ×2 (05:36→13:08)
[2018-07-28] MEDS: oxyCODONE/Acetamin 5/325 MG* TAB PO PRN ×3 (05:37→17:49)
[2018-07-28] MEDS: Heparin VIAL(*) 5000 UNITS/ML VIAL (FIVE THOUSAND) SUBCUT SCH ×2 (05:37→13:09)
[2018-07-28 05:45] LABS: Monocytes % 7 %
[2018-07-28 05:49] LABS: ABS Basophils 0.1 10^3/ul (0-0.2); ABS Eosinophils 0.4 10^3/ul (0-0.6); ABS Lymphocytes 2.2 10^3/ul (1.0-4.8); ABS Monocytes 0.9 10^3/ul (0-0.8); ABS Neutrophils 8.3 10^3/ul (1.5-7.7); ABS Nucleated RBC 0 10^3/ul
[2018-07-28] MEDS: Morphine VIAL* 4 MG/ML VIAL (1 ml vial) IV PRN (07:52)
[2018-07-28] MEDS: Polyethylene Glycol 3350* 17 GM PACKET PO SCH (09:53)
[2018-07-28 13:07] VITALS: BP 136/87
--- NOTE | 2018-07-28 13:38 | PN ---
Progress Note - Progress Note Date of Service: 07/28/18 SOAP: Subjective: []Patient seen and examined at bedside. He feels well with improved pain of the right foot as well as the left arm. Denies feeling of fever or chills. Objective: []A&Ox3, NAD Right foot - Dressing CDI. Dressing changed, incision intact with bloody discharge able to be expressed at site of packing but no purulence and no surrounding erythema, mildly tender to palpation about he incision. Packing was advanced out 1 cm. There is no erythema of the foot, there is mild edema of the foot much improved from previous. F/E at MTPs and ankle intact without pain, sensation intact to light touch distally, capillary refill less than two seconds distally Left UE - No pain with PROM of elbow. Erythema is resolved. Induration over biceps remains, nontender. Sensation intact to light touch throughout Assessment: 33 yo male s/p right foot I&D cultures show group A strep Left arm cellulitis, myositis, fasciits, phlebitis Plan: Wound care right foot- continue to advance packing 1 cm per day and apply dry sterile dressing. If any erythema or purulence please contact orthopedics right away Warm compresses left UE, work with PT/OT for gentle ROM at elbow Okay for DC - follow up with Dr Iglesias in office in 1 week, sooner with any concerns Antibiotics per medicine and ID
[2018-07-28] MEDS: cefTRIAXone(*) 1 GM in NS 0.9% 50 ML* 50 ML IVPB SCH (16:32)
--- NOTE | 2018-07-28 21:43 | DS ---
CC: Dr. Lucio; Dr. Jordan Soto; Dr. Ian Garza; Dr. Ahsan Macedo; Dr. Lamonte Mancini * DISCHARGE SUMMARY: DATE OF ADMISSION: DATE OF DISCHARGE: 07/28/18 DISCHARGE DIAGNOSES: 1. Foot abscess, right, status post I and D on 07/22/18. 2. Left arm cellulitis with myositis, fasciitis, and phlebitis. 3. Bacteremia secondary to group B streptococcus. 4. Superficial thrombophlebitis. 5. History of IV drug use. 6. Hepatitis C. 7. Sepsis, resolved secondary to #1. DISCHARGE MEDICATIONS: 1. Tylenol 650 mg p.o. q.6 p.r.n. 2. Ibuprofen 600 mg p.o. q.6 p.r.n. 3. Percocet 5/325 one tab p.o. q.6 p.r.n., 12 tabs dispensed with 0 refill. 4. Amoxicillin 500 mg p.o. t.i.d. for 13 more days. 5. Ibuprofen 600 mg p.o. q.6 p.r.n. 6. Floranex 2 tabs p.o. daily for 20 days. HISTORY OF PRESENT ILLNESS/HOSPITAL COURSE: The patient is a 33-year-old gentleman with history of hepatitis C infection, supposedly treatment naive, and history of IV drug use, who presented with right foot swelling, where he was diagnosed subsequently with right foot abscess with left arm cellulitis, myositis, fasciitis, and phlebitis with mild sepsis. He then subsequently was found to have bacteremia after a few days when his cultures proved to be positive for a group B strep and his antibiotics were narrowed down to ceftriaxone. When the sensitivity data , he will be placed subsequently on amoxicillin for 13 more days. He had been seen in consultation by both, Dr. Macedo of [place] as well as Dr. Iglesias, who performed the I and D of his right foot abscess He had advised to follow up and/or call his PCP within 3 days postdischarge. He was advised to follow up with Dr. Iglesias in 1 week and to call his office for an appointment. The wound care of his right foot, he had been advised to continue to advance packing 1 cm per day and apply dry sterile dressing on it. If there is any erythema or purulence that develops, he had been advised to contact Orthopedics right away. He was advised to put warm compressors on the left upper extremity, work with PT/OT for gentle range of motion at the elbow. He was also advised to follow up with Dr. Macedo in 1 week and to call his office to make and/or call to confirm an appointment. He was advised to follow up with [facility] or [facility] program to receive treatments for hep C upon release from skilled nursing as well as to start a possible Suboxone program. He was advised that if his symptoms resume or develop new ones or feel unwell for any reason, to call his PCP first. If his PCP cannot entertain him due to scheduling issues alone, to call [facility] if the issue is nonemergent. He was advised that if he needs any more refills of his pain medications, to call his PCP and/or [facility]. He was advised to call my office regarding any questions, concerns, or further clarifications regarding his discharge plans and/or prescriptions and to take his medications as prescribed. REVIEW OF SYSTEMS: The patient denied any recent headaches, dizziness, fevers, chills, nausea, vomiting, chest pain, shortness of breath, increased cough or sputum production, abdominal pain, diarrhea, constipation, pain and/or increased frequency in urination, myalgias or arthralgias, throat pain, or new skin lesions. The rest of the 14-point review of systems is otherwise unremarkable. PHYSICAL EXAMINATION: The most recent vital signs of records with blood pressure of 136/87, 97.6 degrees Fahrenheit, 89 beats per minute heart rate, 16 per minute respiratory rate, saturating at 100% on room air. General Appearance : The patient is awake, alert, and oriented x3, not in acute distress. HEENT: Normocephalic, atraumatic. PERRLA. Extraocular muscles intact. Negative for icterus. Moist oral mucosa. Negative throat erythema. Neck is soft, supple with no cervical lymphadenopathy. No JVD. Heart: S1, S2 within normal limits. Regular rate and rhythm. No murmurs, rubs, and gallops. Chest: Clear to auscultation bilaterally. Good air entry. No wheezes, rales, or rhonchi. Abdomen is soft, nondistended, nontender. Normoactive bowel sounds x4 quadrants. Extremities: No cyanosis or clubbing. Improved edema in the left upper extremity as well as erythema and signs of inflammation. Right foot with a clean postsurgical wound with sutures. Psychiatric: No active psychosis , depression, suicidal or homicidal ideation. TIME SPENT: The total time spent evaluating the patient, reviewing pertinent data, and appropriate documentation is 50 minutes. [id number]/CPS #: [id number] MTDD
== END 2018-07-28 18:05 | disposition home or self-care (01) | DRG 710 ==
LOC: ED 13:37 → EEVIPCON 18:44 → SSU 18:44 → MED 07-28 10:55
PROVIDERS: ADMIT Internal Medicine; ATTEND Student in an Organized Health Care Education/Training Program
PROC: 0LBV0ZZ Excision of Right Foot Tendon, Open Approach (ICD-10-PCS; principal; 2018-07-22 17:00)
DX: A40.0 Sepsis due to streptococcus, group A (principal); F11.20 Opioid dependence, uncomplicated; L03.114 Cellulitis of left upper limb; L02.611 Cutaneous abscess of right foot; I80.8 Phlebitis and thrombophlebitis of other sites; R79.1 Abnormal coagulation profile; B19.20 Unspecified viral hepatitis C without hepatic coma; F15.90 Other stimulant use, unspecified, uncomplicated; M65.171 Other infective (teno)synovitis, right ankle and foot; F17.210 Nicotine dependence, cigarettes, uncomplicated; J45.909 Unspecified asthma, uncomplicated; M60.9 Myositis, unspecified; M72.9 Fibroblastic disorder, unspecified; Z88.4 Allergy status to anesthetic agent; Z84.89 Family history of other specified conditions; Z59.0 Homelessness
CPT/HCPCS: 36415; 71045; 76882; 80048; 80053; 81003; 81015; 82533; 82550; 83605; 83735; 84100; 84484; 85025; 85610; 85730; 86140; 87040; 87070; 87073; 87077; 87086; 87184; 87186; 87205; 87522; 87640; 87641; 87902; 93005; 93306; 99285; A9270-GY; A9579; J0330; J0690; J0696; J1100; J1644; J1885; J2250; J2270; J2543; J2704; J3010; J3370; J3430; J3475; J3480